=== PATIENT | male | born 1965 | race Native Hawaiian/Other Pacific Islander ===

== ENCOUNTER 2018-03-27 22:50 | Inpatient (IN) ==
[2018-03-27] MEDS ORDERED: IPRATROPIUM/ALBUTEROL 3 ML AMPUL.NEB NEB ONE (23:32)
[2018-03-27] MEDS ORDERED: methylPREDNISolone SOD SUCC 125 MG/2 ML VIAL IV ONE (23:32)
[2018-03-27] MEDS ORDERED: FUROSEMIDE 40 MG/4 ML VIAL IV ONE (23:32)
[2018-03-28] MEDS ORDERED: ALBUTEROL SULFATE 2.5 MG/3 ML NEBULIZER NEB ONE (00:25)
[2018-03-28 00:27] LABS: Basophils # (Auto) 0.1 K/mcL (0.0-0.3); Basophils % (Auto) 0.8 % (0.0-2.0); Eosinophils # (Auto) 0.1 K/mcL (0.0-0.7); Eosinophils % (Auto) 1.8 % (0.0-7.0); Granulocytes % (Auto) 60.9 % (38.0-78.0); Lymphocytes # (Auto) 1.8 K/mcL (1.5-4.8); Lymphocytes % (Auto) 27.5 % (15.5-49.0); Mean Corpuscular HGB Conc 33.5 g/dL (31.0-36.0); Mean Corpuscular Hemoglobin 31.8 pg (26.0-34.0); Monocytes # (Auto) 0.6 K/mcL (0.1-0.9); Platelet Count 170 K/mcL (140-440); RBC 5.48 M/mcL (4.50-5.90); Red Cell Distribution Width 15.7 % (11.5-14.5)
[2018-03-28 00:52] LABS: ALT/SGPT 22 U/l (0-40); Albumin 3.9 gm/dL (3.2-5.2); Albumin/Globulin Ratio 1.3 (1.0-2.3); Alkaline Phosphatase 107 U/L (39-117); Blood Urea Nitrogen 52 mg/dl (6-20)
[2018-03-28 01:06] LABS: proBNP > 70000.0 pg/ml (0-125)
--- NOTE | 2018-03-28 01:57 | Emergency Department Note ---
SOB HPI - General Chief Complaint: Shortness of Breath/Dyspnea Stated Complaint: Difficulty Breathing Time Seen by Provider: 03/27/18 23:18 Source: patient, family Mode of arrival: ambulatory Limitations: no limitations - History of Present Illness 52-year-old male visiting from [place] comes in complaining of shortness of breath since he got here 5 days ago. He has several chronic health conditions including congestive heart failure with an implanted defibrillator on diuretics , COPD from smoking long-term and chronic kidney disease. He cannot lay down to go to sleep and cannot seem to catch his breath. No fever or trouble the bowel movement. He does have some prostate trouble and is on medicine to help him urinate. No fever or nausea vomiting He incidentally notes that he is got a slow healing ulcer on his left cook which he has wrapped up - Related Data Home Medications Medication Instructions Recorded Confirmed Amiodarone HCl [Cordarone] 200 mg PO DAILY 03/27/18 03/27/18 Aspirin [Aspirin EC] 81 mg PO DAILY 03/27/18 03/27/18 Bumetanide [Bumex] 1 mg PO DAILY 03/27/18 03/27/18 Carvedilol [Coreg] 6.25 mg PO BIDCC 03/27/18 03/27/18 Colchicine [Colcrys] 0.6 mg PO DAILYP PRN 03/27/18 03/27/18 Febuxostat [Uloric] 40 mg PO DAILY 03/27/18 03/27/18 Fluticasone Hfa 220Mcg [Flovent 1 puff INH BID 03/27/18 03/27/18 Hfa 220Mcg] Lisinopril [Zestril] 5 mg PO DAILY 03/27/18 03/27/18 Simvastatin [Zocor] 10 mg PO HS 03/27/18 03/27/18 Spironolactone [Aldactone] 25 mg PO DAILY 03/27/18 03/27/18 Tamsulosin HCl [Flomax] 0.4 mg PO DAILY 03/27/18 03/27/18 Umeclidinium [place] [Incruse 62.5 mcg IH DAILY 03/27/18 03/27/18 Ellipta] Allergies Allergy/AdvReac Type Severity Reaction Status Date / Time No Known Drug Allergies Allergy Verified 03/27/18 22:56 Review of Systems All systems ED: reviewed and negative except as stated. Past Medical History - Past Medical History Attestation: Yes: The following information was validated with the patient. Medical history: Reports: CHF, COPD, hyperlipidemia, hypertension, renal disease , other (Gout) Surgical history ED: Reports: pacemaker/AICD - Social History smoking status: Former smoker Physical Exam Thin male in some acute distress secondary to difficulty breathing. He can speak in full sentences but has to catch a quick breath between. Normocephalic atraumatic. Acne scarring on face. Conjunctive are clear sclerae white and nonicteric. No nasal discharge or congestion. Oropharynx is pink and moist. Neck is supple without lymphadenopathy thyromegaly or carotid bruit. Heart is slightly bradycardic but otherwise regular rhythm. Lungs with tight wheezes throughout with scattered rhonchi. Significant work of breathing. Abdomen soft nontender nondistended. No peritoneal signs or guarding. No pedal edema. Exam of the wound on the left leg shows a approximate 7-8 cm length shallow ulceration with good granulation tissue. It does not look infected-no beefy red inflammation or purulent drainage. No foul smell to it. He is alert oriented able answer questions appropriately Limitations: no limitations Course Vital Signs Temperature 97.0 F 03/27/18 22:51 Pulse Rate 61 03/27/18 22:51 Respiratory Rate 26 H 03/27/18 22:51 Blood Pressure 136/91 03/27/18 22:51 Pulse Oximetry (%) 99 03/27/18 22:51 Temperature 97.0 F 03/27/18 22:51 Pulse Rate 58 L 03/28/18 02:01 Respiratory Rate 30 H 03/28/18 02:01 Blood Pressure 124/94 03/28/18 02:01 Pulse Oximetry (%) 96 03/28/18 02:01 Shortness of Breath/Dyspnea - Lab Data Lab results reviewed: Yes I reviewed the patient's lab results. Result diagrams: 03/27/18 23:45 03/27/18 23:45 Lab Results 03/27/18 03/27/18 03/27/18 Range/Units 23:45 23:45 23:45 WBC 6.5 (4.5-11.0) K/mcL RBC 5.48 (4.50-5.90) M/mcL Hgb 17.4 H (13.5-16.5) g/dL Hct 52.1 (41.0-55.0) % POC Hct 55.0 (41.0-55.0) % MCV 95.0 (80.0-100.0) fL MCH 31.8 (26.0-34.0) pg MCHC 33.5 (31.0-36.0) g/dL RDW 15.7 H (11.5-14.5) % Plt Count 170 (140-440) K/mcL MPV 9.5 (7.4-10.4) fL Gran % 60.9 (38.0-78.0) % Lymph % (Auto) 27.5 (15.5-49.0) % [place] % (Auto) 9.0 (1.0-12.0) % Eos % (Auto) 1.8 (0.0-7.0) % Baso % (Auto) 0.8 (0.0-2.0) % Gran # 3.9 (1.8-8.0) K/mcL Lymph # (Auto) 1.8 (1.5-4.8) K/mcL [place] # (Auto) 0.6 (0.1-0.9) K/mcL Eos # (Auto) 0.1 (0.0-0.7) K/mcL Baso # (Auto) 0.1 (0.0-0.3) K/mcL VBG Lactic Acid (0.5-2.2) mmol/L POC Sodium 140 (133-145) mmol/L Sodium 137 (133-145) mmol/L POC Potassium 4.1 (3.3-5.1) mmol/L Potassium 4.0 (3.3-5.1) mmol/L POC Chloride 105 (96-108) mmol/L Chloride 101 (96-108) mmol/L Carbon Dioxide 19 L (22-30) mmol/L POC Total CO2 20 L (22-30) mmol/L Anion Gap 17.0 H (8-16) POC BUN 50 H (6-20) mg/dl BUN 52 H (6-20) mg/dl Creatinine 3.0 H (0.7-1.2) mg/dl POC Creatinine 3.3 H (0.7-1.2) mg/dl GFR Calculation 23 Glucose 116 H (70-105) mg/dL POC Glucose 117 H (70-105) mg/dL Calcium 9.5 (8.6-10.4) mg/dl POC WB Ioniz Calcium 1.08 L (1.16-1.32) mmol/L Magnesium 1.7 (1.6-2.5) mg/dL Total Bilirubin 1.3 H (0.0-1.0) mg/dL AST 26 (0-37) U/l ALT 22 (0-40) U/l Alkaline Phosphatase 107 (39-117) U/L Troponin T 0.04 H* (0-0.03) ng/ml NT-Pro-B Natriuret Pep > 84030.0 H (0-125) pg/ml Total Protein 7.0 (5.9-8.4) gm/dL Albumin 3.9 (3.2-5.2) gm/dL Globulin 3.1 (2.2-3.7) gm/dL Albumin/Globulin Ratio 1.3 (1.0-2.3) 03/27/18 Range/Units 23:45 WBC (4.5-11.0) K/mcL RBC (4.50-5.90) M/mcL Hgb (13.5-16.5) g/dL Hct (41.0-55.0) % POC Hct (41.0-55.0) % MCV (80.0-100.0) fL MCH (26.0-34.0) pg MCHC (31.0-36.0) g/dL RDW (11.5-14.5) % Plt Count (140-440) K/mcL MPV (7.4-10.4) fL Gran % (38.0-78.0) % Lymph % (Auto) (15.5-49.0) % [place] % (Auto) (1.0-12.0) % Eos % (Auto) (0.0-7.0) % Baso % (Auto) (0.0-2.0) % Gran # (1.8-8.0) K/mcL Lymph # (Auto) (1.5-4.8) K/mcL [place] # (Auto) (0.1-0.9) K/mcL Eos # (Auto) (0.0-0.7) K/mcL Baso # (Auto) (0.0-0.3) K/mcL VBG Lactic Acid 1.9 (0.5-2.2) mmol/L POC Sodium (133-145) mmol/L Sodium (133-145) mmol/L POC Potassium (3.3-5.1) mmol/L Potassium (3.3-5.1) mmol/L POC Chloride (96-108) mmol/L Chloride (96-108) mmol/L Carbon Dioxide (22-30) mmol/L POC Total CO2 (22-30) mmol/L Anion Gap (8-16) POC BUN (6-20) mg/dl BUN (6-20) mg/dl Creatinine (0.7-1.2) mg/dl POC Creatinine (0.7-1.2) mg/dl GFR Calculation Glucose (70-105) mg/dL POC Glucose (70-105) mg/dL Calcium (8.6-10.4) mg/dl POC WB Ioniz Calcium (1.16-1.32) mmol/L Magnesium (1.6-2.5) mg/dL Total Bilirubin (0.0-1.0) mg/dL AST (0-37) U/l ALT (0-40) U/l Alkaline Phosphatase (39-117) U/L Troponin T (0-0.03) ng/ml NT-Pro-B Natriuret Pep (0-125) pg/ml Total Protein (5.9-8.4) gm/dL Albumin (3.2-5.2) gm/dL Globulin (2.2-3.7) gm/dL Albumin/Globulin Ratio (1.0-2.3) ABG shows a pH 7.38 PCO2 34 PO2 62 - Radiology Data Radiology results reviewed: Yes I reviewed the patient's radiology results. Chest x-ray shows pulmonary vascular congestion and cardiomegaly consistent with CHF. AICD noted - EKG Data EKG attestation: Yes I reviewed and interpreted this EKG. EKG results narrative: EKG shows rate of 59 sinus with T-wave inversion in lead III. Q-wave in 1 and aVL. Long PA is noted as well as IVCD Disposition Pt seen by SPLIT AND DRUM ROOM SUPERVISOR/PA only: No Clinical Impression: Acute exacerbation of chronic obstructive airways disease, Chronic renal disease, stage 4, severely decreased glomerular filtration rate (GFR) between 15 -29 mL/min/1.73 square meter, Wound healing, delayed Congestive heart failure Qualifiers: Heart failure type: systolic Heart failure chronicity: acute on chronic Qualified Code(s): I50.23 - Acute on chronic systolic (congestive) heart failure Summary: After initial exam and interview patient is worked up with chest x-ray EKG ABG and laboratory. Differential diagnosis includes COPD exacerbation versus CHF exacerbation versus worsening kidney status Treated with 40 of furosemide IV. He is also given DuoNeb treatment 1 and then albuterol treatment 1 nebulized. Also given Solu-Medrol After getting furosemide he was able to urinate some for us. DuoNeb helped but he still had difficulty breathing so he is given another dose of albuterol. IV Solu-Medrol was given for COPD exacerbation The wound site on his leg does appear to be healing without infection so this was re-bandaged Discussed case with Dr. Hopkins, hospitalist and Dr. Ogden, business initiatives manager. Dr. Ogden recommended giving more diuretics and so another dose of furosemide is given. Dr. Hopkins agreed to accept patient for further hospital care Disposition: Xfer As Inpt ([facility]) Condition: Serious
[2018-03-28] MEDS ORDERED: FUROSEMIDE 40 MG/4 ML VIAL IV ONE (02:33)
[2018-03-28 03:12] LABS: Appearance,Urine CLEAR; Bacteria,Urine 0 /hpf (0); Bilirubin,Urine NEG (NEG); Color,Urine YELLOW; Glucose,Urine (UA) NEGATIVE (NEG); Leukocyte Esterase,Urine NEG /uL (NEG); Mucus,Urine FEW /hpf (0); Protein,Urine 30 mg/dL (NEG); Specific Gravity,Urine 1.011 (1.000-1.035); Sperm,Urine PRESENT /hpf (ABSENT); Urine Blood NEG mg/dL (<0.03); Urine Hyaline Cast 29 /lpf (0-2); Urine RBC < 1 /hpf (0-1); Urine Squamous Epithelial Cell 0 /hpf (0-4); Urine WBC 0 /hpf (0-4); Urobilinogen,Urine NEG (NEG)
--- NOTE | 2018-03-28 05:34 | Internal Med History&Physical ---
Medical - H&P: [facility] Patient information: Note initiated : 03/28/18 at 5:29 am Service Date, if different from initiated Date: [] Patient: Ac Ponce a 52 y/o M admitted on for Difficulty Breathing. Chief Complaint: [] Chief complaint: progressive worsening dyspnea History of present illness: Mr. Ponce is a 52 year old M (visiting from [place]) with history of CHF, cardiomyopathy (non-ischemic?), status post AICD (placed 2015), hypertension hyperlipidemia, chronic renal failure, evaluated at ER for progressively worsening dyspnea since his arrival here on 03/21/18. 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 He double took the bumex dose on 03/24 to 03/26 (two 1mg pills daily), but that still did not improve his worsening symptoms of orthopnea and dyspnea on exertion. His symptoms are similar to 2 years ago, when he was hospitalized for acute CHF exacerbation. His chest x-ray and lab work are consistent with acute CHF exacerbation and renal failure. His estimated GFR (23) is very close to be on dialysis, and (when I saw him) his urine output is only ~300 mL after 40 mg IV Lasix 2. He is still dyspneic with exertion despite placed on O2 nasal cannula 2 Lpm. He will be admitted to ICU for further close monitoring, CPAP trial, increased Bumex dose. Dr. Ogden of nephrology service has been consulted for concern that his acute CHF exacerbation may not respond to IV diuresis. 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), s/p AICD placement (~5 years ago), hyperlipidemia, hypertension, Chronic renal failure, Gout, COPD Surgical history: s/p AICD Pertinent family history: Diabetes in family Smoking status: Current every day smoker Alcohol use: none (history of illegal drug use, ice) Medical - H&P: Meds Home Medications Medication Instructions Recorded Confirmed Type Amiodarone HCl [Cordarone] 200 mg PO DAILY 03/27/18 03/27/18 History Aspirin [Aspirin EC] 81 mg PO DAILY 03/27/18 03/27/18 History Bumetanide [Bumex] 1 mg PO DAILY 03/27/18 03/27/18 History Carvedilol [Coreg] 6.25 mg PO BIDCC 03/27/18 03/27/18 History Colchicine [Colcrys] 0.6 mg PO DAILYP PRN 03/27/18 03/27/18 History Febuxostat [Uloric] 40 mg PO DAILY 03/27/18 03/27/18 History Fluticasone Hfa 220Mcg [Flovent 1 puff INH BID 03/27/18 03/27/18 History Hfa 220Mcg] Lisinopril [Zestril] 5 mg PO DAILY 03/27/18 03/27/18 History Simvastatin [Zocor] 10 mg PO HS 03/27/18 03/27/18 History Spironolactone [Aldactone] 25 mg PO DAILY 03/27/18 03/27/18 History Tamsulosin HCl [Flomax] 0.4 mg PO DAILY 03/27/18 03/27/18 History Umeclidinium [place] [Incruse 62.5 mcg IH DAILY 03/27/18 03/27/18 History Ellipta] Allergies Allergy/AdvReac Type Severity Reaction Status Date / Time No Known Drug Allergies Allergy Verified 03/27/18 22:56 Medical - H&P: Exam - Constitutional Vitals: Temp Pulse Resp BP Pulse Ox 97.0 F 62 22 125/103 98 03/27/18 22:51 03/28/18 03:51 03/28/18 03:51 03/28/18 03:31 03/28/18 03:51 General appearance: moderate distress Exam: SOB on O2 nasal cannula - Head Head exam: Present: atraumatic, normocephalic - Eye Eye exam: Present: EOMI, PERRL Pupils: Present: normal accommodation - ENT ENT exam: Present: mucous membranes moist - Neck Neck exam: Present: full ROM. Absent: lymphadenopathy, thyromegaly - Respiratory Respiratory exam: Present: rales, respiratory distress Additional comments: Bibasilar, right worst in the left - Cardiovascular Cardiovascular exam: Present: +S1, +S2. Absent: clicks, gallop, rubs - GI/Abdominal GI/Abdominal exam: Present: soft. Absent: guarding, rebound, tenderness Additional comments: Obese abdomen, positive bowel sounds - Extremities Exam Extremities exam: Present: full ROM. Absent: calf tenderness, pedal edema, tenderness Additional comments: left lower leg with a ~ 7-8 cm shallow ulceration with good granulation tissue. no infected-no beefy red inflammation or purulent drainage - Neurological Exam Neurological exam: Present: alert, CN II-XII intact, oriented X3, reflexes normal - Skin Skin exam: Present: intact Medical - H&P: Reslt - Labs CBC & Chem 7: 03/29/18 04:21 03/29/18 04:21 Labs: Short CBC 03/27/18 Range/Units 23:45 WBC 6.5 (4.5-11.0) K/mcL Hgb 17.4 H (13.5-16.5) g/dL Hct 52.1 (41.0-55.0) % Plt Count 170 (140-440) K/mcL BMP 03/27/18 23:45 Sodium 137 Potassium 4.0 Chloride 101 Carbon Dioxide 19 L BUN 52 H Creatinine 3.0 H Glucose 116 H Calcium 9.5 Cardiac Enzymes 03/27/18 Range/Units 23:45 Troponin T 0.04 H* (0-0.03) ng/ml Liver Function 03/27/18 Range/Units 23:45 Total Bilirubin 1.3 H (0.0-1.0) mg/dL AST 26 (0-37) U/l ALT 22 (0-40) U/l Alkaline Phosphatase 107 (39-117) U/L Albumin 3.9 (3.2-5.2) gm/dL Urine 03/28/18 Range/Units 00:40 Urine Color Yellow Urine Appearance Clear Urine pH 6.0 (5.0-9.0) Ur Specific [place] 1.011 (1.000-1.035) Urine Protein 30 A (NEG) mg/dL Urine Glucose (UA) Negative (NEG) mg/dL - ABG Interpretation ABG results: 7.38/34/62/20/-4.1 BE/ 81% Additional comments: Hypoxemia, consistent with fluid overload/CHF - EKG Data -: EKG Reviewed by Myself Rate: bradycardia - EKG Data Prior EKG available for review: no EKG comments: slight bradycardic 03/28/18 07:12 - Imaging and Cardiology Chest x-ray Additional comments: IMPRESSION: 1. Cardiomegaly 2. Otherwise negative PA and lateral chest x-ray Interpreted and Authenticated by: Sameer Hall 03/28/18 Medical - H&P: A/P (1) Dyspnea due to congestive heart failure Current visit: Yes Status: Acute Resume diuretics, nephrology consult with Dr. Ogden due to his stage IV chronic renal failure. Concerned that he may need dialysis for fluid removal if diuretic fails. He is a smoker, and has history of mild degree of COPD on Flovent, but evaluations, exam and labs are consistent with fluid overload/CHF. ICU/PCU, close monitoring, CPAP as needed. 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 George Osorio, [facility], [facility] Current visit: Yes Status: Acute As above, diuretic with fluid restriction (3) Chronic renal failure, stage 4 (severe) Problem details: His consultant internship is Dr. Ybarra, at [facility], hold in [place] Current visit: Yes Status: Acute Nephrology consult with Dr. Ogden, close monitoring (4) Tobacco abuse Current visit: Yes Status: Acute Strongly advised him to quit smoking completely, resume his Flovent (or equivalents) and add bronchodilators.
[2018-03-28] MEDS ORDERED: ACETAMINOPHEN 325 MG TABLET PO PRN (05:54)
[2018-03-28] MEDS ORDERED: ONDANSETRON 4 MG/2 ML VIAL IV PRN (05:54)
--- NOTE | 2018-03-28 06:46 | XRay Report ---
INDICATION: Chest pain TECHNIQUE: PA and lateral upright chest x-ray COMPARISON: None FINDINGS: Left-sided unipolar transvenous pacemaker lead. Generalized cardiomegaly. Pulmonary vascularity is within normal limits. No pulmonary congestion. No pulmonary edema. No focal pulmonary parenchymal infiltrate or mass. No pleural fluid. IMPRESSION: 1. Cardiomegaly 2. Otherwise negative PA and lateral chest x-ray Interpreted and Authenticated by: Sameer Hall 03/28/18
[2018-03-28] MEDS: IPRATROPIUM/ALBUTEROL 3 ML AMPUL.NEB NEB SCH ×5 (07:27→22:50)
[2018-03-28] MEDS: BUDESONIDE 0.5 MG/2 ML AMPUL.NEB NEB SCH ×2 (07:27→20:15)
[2018-03-28] MEDS: DOCUSATE SODIUM 100 MG CAPSULE PO SCH ×2 (07:55→20:30)
[2018-03-28] MEDS: 0.9 % SODIUM CHLORIDE 10 ML SYRINGE IV SCH ×3 (07:55→22:00)
[2018-03-28] MEDS: PANTOPRAZOLE 40 MG TABLET PO SCH (07:56)
[2018-03-28] MEDS ORDERED: BUMETANIDE 1 MG TABLET PO SCH (09:00)
--- NOTE | 2018-03-28 09:32 | Nephrology Consult Note ---
History of Present Illness - Reason for Consult Patient information: Note initiated : 03/28/18 at 9:27 am Service Date, if different from initiated Date: [] Patient: Ac Ponce a 52 y/o M admitted on 03/28/18 for Difficulty Breathing. Chief Complaint: [] Consult date: 03/28/18 chronic renal failure Requesting physician: Sachin Luz - Chief Complaint SOB - History of Present Illness Patient is a 52 y/o pleasant male with PMH of CHF, CKD and other medical issues who is admitted with chief c/o SOB Patient is visiting his daughter here from [place]. He states have SOB for the last one week which is progressively getting worse and hence he came to the ER yesterday. Patient c/o orthopnea as well. He has no cough, no fever. No CP he denies LE edema he states his bumex dose was reduced either by his jewel diameter gauger or time checker because of decline in renal function, he self increased this for the last 2-3 days with some improvement in his symptoms he denies using NSAIDS, high sodium diet He has no nausea, vomiting no diarrhea he has been limiting his fluid intake given concerns of CHF He was evaluated in the ER and found to have s.creatinine of 3.0, egfr is 23ml/ min, mild acidosis, pro bnp of > 70,000 he was given 40mg furosemide x 2 doses with only 350cc of urine output and hence nephrology was consulted Review of Systems All systems PM: reviewed and no additional remarkable complaints except as stated (as in HPI) Past History Past medical history: h/o CHF from use of street drug ICE he is s/p defibrillator for the same 2-3 yrs ago he has h/o HTN, CKD stage IV, (he does not know his baseline renal function but was told his renal function is declining) he has chronic LE wound which is healing but still has open ulcer he has ? h/o COPD, patient denies but on bronchodilators Past surgical history: s/p defibrillator placement Past family history: father and mother had DM, denies renal issues in family Past social history: lives in [place], visiting his daughter here to help take care of her son h/o drug abuse (ICE) which he stopped since cardiac issues h/o smoking, smokes 1-2 cig per day, current drinks alcohol occasionally does not work Medications and Allergies Home Medications Medication Instructions Recorded Confirmed Type Amiodarone HCl [Cordarone] 200 mg PO DAILY 03/27/18 03/27/18 History Aspirin [Aspirin EC] 81 mg PO DAILY 03/27/18 03/27/18 History Bumetanide [Bumex] 1 mg PO DAILY 03/27/18 03/27/18 History Carvedilol [Coreg] 6.25 mg PO BIDCC 03/27/18 03/27/18 History Colchicine [Colcrys] 0.6 mg PO DAILYP PRN 03/27/18 03/27/18 History Febuxostat [Uloric] 40 mg PO DAILY 03/27/18 03/27/18 History Fluticasone Hfa 220Mcg [Flovent 1 puff INH BID 03/27/18 03/27/18 History Hfa 220Mcg] Lisinopril [Zestril] 5 mg PO DAILY 03/27/18 03/27/18 History Simvastatin [Zocor] 10 mg PO HS 03/27/18 03/27/18 History Spironolactone [Aldactone] 25 mg PO DAILY 03/27/18 03/27/18 History Tamsulosin HCl [Flomax] 0.4 mg PO DAILY 03/27/18 03/27/18 History Umeclidinium [place] [Incruse 62.5 mcg IH DAILY 03/27/18 03/27/18 History Ellipta] Allergies Allergy/AdvReac Type Severity Reaction Status Date / Time No Known Drug Allergies Allergy Verified 03/27/18 22:56 Exam - Vital Signs Vital signs: Temp Pulse Resp BP Pulse Ox 97.9 F 76 18 127/97 100 03/28/18 06:57 03/28/18 07:33 03/28/18 07:33 03/28/18 06:57 03/28/18 07:28 - General Appearance General appearance: appears started age EENT: mucous membranes moist Neck: no JVD Respiratory: rales (right LL) Cardiology: no rub, no edema, normal S1, normal S2 Gastrointestinal: no tenderness, no guarding Integumentary: warm and dry Neurologic: no asterixis, alert and oriented x3 Musculoskeletal: no erythema, no cyanosis Psychiatric: mood/affect appropriate Results - Lab Results 03/27/18 23:45 03/27/18 23:45 Most recent lab results Calcium 9.5 mg/dl (8.6-10.4) 03/27/18 23:45 Magnesium 1.7 mg/dL (1.6-2.5) 03/27/18 23:45 Assessment and Plan (1) Acute exacerbation of chronic obstructive airways disease Status: Acute (2) Congestive heart failure Status: Acute Qualifiers: Heart failure type: systolic Heart failure chronicity: acute on chronic Qualified Code(s): I50.23 - Acute on chronic systolic (congestive) heart failure (3) Chronic renal disease, stage 4, severely decreased glomerular filtration rate (GFR) between 15-29 mL/min/1.73 square meter S.Creatinine is 3.0, egfr is 23ml/min per CKD EPI equation unknown baseline, will obtain nephrology records tomorrow mild acidosis from CKD CHF with pro bnp > 70,000 and mild IE on CXR COPD exacerbation plan: no emergent need for STOCK DRIER TENDER/dialysis will start furosemide 80mg bid, will follow the response and increase the dose or add metolazone continue bronchodilators as likely component of COPD exacerbation as well will obtain echo and renal US and urinary studies will continue with lisinopril and spironolactone for now but if any concerns will hold fluid restriction to 1.5L renal diet dose meds to egfr/avoid nephrotoxic medications Will follow along Thank you for giving me an opportunity to participate in Mr Ponce's medical care, appreciate it Status: Acute
[2018-03-28 10:26] LABS: Creatinine,Urine Random 76.5 mg/dl
[2018-03-28] MEDS ORDERED: FUROSEMIDE 100 MG/10 ML VIAL IV ONE (10:30)
[2018-03-28] MEDS: AMIODARONE HCL 200 MG TABLET PO SCH (10:41)
[2018-03-28] MEDS: TAMSULOSIN 0.4 MG CAPSULE PO SCH (10:41)
[2018-03-28] MEDS: ASPIRIN 81 MG TAB.CHEW CHEWED SCH (10:41)
[2018-03-28] MEDS: CARVEDILOL 6.25 MG TABLET PO SCH ×2 (10:41→17:35)
--- NOTE | 2018-03-28 11:46 | Ultrasound Report ---
CLINICAL INFORMATION: Chronic kidney disease TECHNIQUE: Grayscale and color flow Doppler spectral imaging COMPARISON: None. FINDINGS: Right kidney measures 7.0 x 3.3 x 3.8 cm. There is a 2.1 cm right lower pole cyst. No solid mass. No hydronephrosis. Right kidney is mildly atrophic but otherwise negative. Normal sinus and cortical echotexture. Left kidney measures 9.6 x 6.3 x 5.4 cm. No solid or cystic mass. No hydronephrosis. No detectable calculi. Normal sinus cortical echotexture. Prevoid bladder volume measures 115 mL. Postvoid bladder volume measures 66 mL. Normal left ureteral jet. Right ureteral jet is not identified. No bladder calculus or detectable mass IMPRESSION: 1. Mildly atrophic right kidney. No hydronephrosis. 2. Post void residual as above Interpreted and Authenticated by: Sameer Hall 03/28/18
[2018-03-28 13:22] LABS: ALT/SGPT 22 U/l (0-40); Albumin 3.4 gm/dL (3.2-5.2); Alkaline Phosphatase 106 U/L (39-117); Bilirubin,Direct 0.4 mg/dL (0.0-0.3); Blood Urea Nitrogen 59 mg/dl (6-20); Gamma Glutamyl Transpeptidase 76 U/L (8-61); Uric Acid 9.3 mg/dL (2.5-8.0)
[2018-03-28] MEDS ORDERED: METOLAZONE 2.5 MG TABLET PO ONE (15:30)
[2018-03-28] MEDS: FUROSEMIDE 100 MG/10 ML VIAL IV SCH (16:06)
[2018-03-28] MEDS ORDERED: SIMVASTATIN 10 MG TABLET PO SCH (21:00)
[2018-03-29] MEDS: IPRATROPIUM/ALBUTEROL 3 ML AMPUL.NEB NEB SCH ×5 (03:39→19:35)
[2018-03-29] MEDS: 0.9 % SODIUM CHLORIDE 10 ML SYRINGE IV SCH ×4 (05:52→23:05)
[2018-03-29 06:40] LABS: Basophils # (Auto) 0 K/mcL (0.0-0.3); Basophils % (Auto) 0 % (0.0-2.0); Eosinophils # (Auto) 0 K/mcL (0.0-0.7); Eosinophils % (Auto) 0 % (0.0-7.0); Granulocytes % (Auto) 90.4 % (38.0-78.0); Lymphocytes # (Auto) 0.5 K/mcL (1.5-4.8); Lymphocytes % (Auto) 3.9 % (15.5-49.0); Mean Cell Volume 97.3 fL (80.0-100.0); Mean Corpuscular HGB Conc 32.9 g/dL (31.0-36.0); Monocytes # (Auto) 0.8 K/mcL (0.1-0.9); Monocytes % (Auto) 5.7 % (1.0-12.0); Platelet Count 149 K/mcL (140-440); RBC 5.11 M/mcL (4.50-5.90); Red Cell Distribution Width 16.2 % (11.5-14.5)
[2018-03-29 07:02] LABS: ALT/SGPT 22 U/l (0-40); Albumin 3.6 gm/dL (3.2-5.2); Albumin/Globulin Ratio 1.2 (1.0-2.3); Alkaline Phosphatase 99 U/L (39-117); Blood Urea Nitrogen 76 mg/dl (6-20)
[2018-03-29] MEDS: PANTOPRAZOLE 40 MG TABLET PO SCH (07:15)
[2018-03-29] MEDS: BUDESONIDE 0.5 MG/2 ML AMPUL.NEB NEB SCH ×2 (07:23→19:35)
--- NOTE | 2018-03-29 08:12 | Internal Med Progress Note ---
Medical - PN: Subj Patient information: Note initiated : 03/29/18 at 8:08 am Service Date, if different from initiated Date: [] Patient: Ac Ponce 52 y/o M admitted on 03/28/18 for Difficulty Breathing. Chief Complaint: [] - Constitutional Vitals: Vital Signs Temp Pulse Resp BP Pulse Ox 97.9 F 53 L 18 123/87 100 03/29/18 04:01 03/29/18 07:35 03/29/18 07:35 03/29/18 06:01 03/29/18 07:34 Period Temp Pulse Resp BP Sys/Altman Pulse Ox Last 24 Hr 97.1 F-98.8 F 53-68 10-28 107-140/71-99 95-100 Intake and Output 03/28/18 03/29/18 03/29/18 21:59 05:59 13:59 Intake Total 640 / 640 300 / 300 Output Total 1075 / 1075 800 / 800 600 / 600 Balance -435 / -435 -500 / -500 -600 / -600 Weight 200 lb 1.6 oz Intake & Output: Intake & Output 03/28/18 03/29/18 03/29/18 21:59 05:59 13:59 Intake Total 640 / 640 300 / 300 Output Total 1075 / 1075 800 / 800 600 / 600 Balance -435 / -435 -500 / -500 -600 / -600 Weight 200 lb 1.6 oz Intake: Oral 640 / 640 300 / 300 Output: Void Amount 1075 / 1075 800 / 800 600 / 600 # of times incontinent of urine 0 / 0 Other: Meal Dinner snack Percent of Meal Consumed 100% 100% Feeding Ability Independent # Voids 1 2 2 Medical - PN: Obj Da - Labs CBC & Chem 7: 03/29/18 04:21 03/29/18 04:21 Labs: Abnormal Lab Results 03/29/18 03/29/18 03/28/18 04:21 04:21 11:52 WBC 13.2 H Hgb RDW 16.2 H Gran % 90.4 H Lymph % (Auto) 3.9 L Gran # 12.0 H Lymph # (Auto) 0.5 L Carbon Dioxide 18 L 19 L POC Total CO2 Anion Gap 18.0 H 20.0 H POC BUN BUN 76 H 59 H Creatinine 3.4 H 3.5 H POC Creatinine Glucose 150 H 248 H POC Glucose Uric Acid 9.3 H POC WB Ioniz Calcium Total Bilirubin 1.1 H 1.2 H Direct Bilirubin 0.4 H GGT 76 H Lactate Dehydrogenase 252 H Troponin T NT-Pro-B Natriuret Pep Urine Protein Hyaline Casts Urine Sperm 03/28/18 03/27/18 03/27/18 00:40 23:45 23:45 WBC Hgb RDW Gran % Lymph % (Auto) Gran # Lymph # (Auto) Carbon Dioxide 19 L POC Total CO2 20 L Anion Gap 17.0 H POC BUN 50 H BUN 52 H Creatinine 3.0 H POC Creatinine 3.3 H Glucose 116 H POC Glucose 117 H Uric Acid POC WB Ioniz Calcium 1.08 L Total Bilirubin 1.3 H Direct Bilirubin GGT Lactate Dehydrogenase Troponin T 0.04 H* NT-Pro-B Natriuret Pep > 12401.0 H Urine Protein 30 A Hyaline Casts 29 H Urine Sperm Present A 03/27/18 23:45 WBC Hgb 17.4 H RDW 15.7 H Gran % Lymph % (Auto) Gran # Lymph # (Auto) Carbon Dioxide POC Total CO2 Anion Gap POC BUN BUN Creatinine POC Creatinine Glucose POC Glucose Uric Acid POC WB Ioniz Calcium Total Bilirubin Direct Bilirubin GGT Lactate Dehydrogenase Troponin T NT-Pro-B Natriuret Pep Urine Protein Hyaline Casts Urine Sperm Meds: Medications Acetaminophen (Tylenol) 650 mg PO Q4-6HP PRN PRN Reason: PAIN/FEVER > 101 Albuterol/Ipratropium (Duoneb) 3 ml NEB Q4HRT [facility] Last Admin: 03/29/18 07:23 Dose: 3 ml Amiodarone HCl (Cordarone) 200 mg PO DAILY [facility] Last Admin: 03/28/18 10:41 Dose: 200 mg Aspirin (Aspirin) 81 mg CHEWED DAILY [facility] Last Admin: 03/28/18 10:41 Dose: 81 mg Budesonide (Pulmicort) 0.5 mg NEB Q12 [facility] Last Admin: 03/29/18 07:23 Dose: 0.5 mg Carvedilol (Coreg) 6.25 mg PO BIDCC [facility] Last Admin: 03/28/18 17:35 Dose: 6.25 mg Docusate Sodium (Colace) 100 mg PO BID [facility] Last Admin: 03/28/18 20:30 Dose: 100 mg Furosemide (Lasix) 80 mg IV BIDD [facility] Last Admin: 03/28/18 16:06 Dose: 80 mg Ondansetron HCl (Zofran) 4 mg IV Q4-6HP PRN PRN Reason: Nausea And Vomiting Pantoprazole Sodium (Protonix) 40 mg PO QAMAC [facility] Last Admin: 03/29/18 07:15 Dose: 40 mg Simvastatin (Zocor) 10 mg PO HS [facility] Last Admin: 03/28/18 20:29 Dose: 10 mg Sodium Chloride (Saline Flush) 10 ml IV Q8 [facility] Last Admin: 03/29/18 05:52 Dose: 10 ml Tamsulosin HCl (Flomax) 0.4 mg PO DAILY [facility] Last Admin: 03/28/18 10:41 Dose: 0.4 mg Medical - PN: A/P - Time Spent With Patient Total time spent is greater than 50% in coordination of care (as documented) at patient's floor/unit and/or counseling patient: (1) Dyspnea due to congestive heart failure Status: Acute Current Visit: Yes (2) Congestive heart failure Problem details: His saddle tree stitcher is Dr. George Osorio, [facility] Status: Acute Assessment and plan: Echo 03/28/18: Tissue fraction 50% severely reduced at LVEF, moderate RV dilated, moderate LA & RA dilated, moderate pulmonary hypertension (50-70 mmHg), increased right atrial pressure with dilated IVC Current Visit: Yes (3) Chronic renal failure, stage 4 (severe) Problem details: His echo tech is Dr. Ybarra, at [facility], hold in [place] Status: Acute Current Visit: Yes (4) Tobacco abuse Status: Acute Current Visit: Yes Medical - PN: Qual - VTE Deep Vein Thrombosis/Pulmonary Embolism Present on Admission: No
[2018-03-29] MEDS: FUROSEMIDE 100 MG/10 ML VIAL IV SCH ×2 (09:11→16:25)
[2018-03-29] MEDS: AMIODARONE HCL 200 MG TABLET PO SCH (09:12)
[2018-03-29] MEDS: ASPIRIN 81 MG TAB.CHEW CHEWED SCH (09:12)
[2018-03-29] MEDS: DOCUSATE SODIUM 100 MG CAPSULE PO SCH ×2 (09:12→20:42)
[2018-03-29] MEDS: CARVEDILOL 6.25 MG TABLET PO SCH ×3 (09:12→18:22)
[2018-03-29] MEDS: TAMSULOSIN 0.4 MG CAPSULE PO SCH (09:12)
[2018-03-29] MEDS ORDERED: ACETAMINOPHEN 325 MG TABLET PO PRN (16:29)
[2018-03-29] MEDS ORDERED: ONDANSETRON 4 MG/2 ML VIAL IV PRN (16:29)
--- NOTE | 2018-03-29 17:12 | Nephrology Progress Note ---
Subjective Patient information: Note initiated : 03/29/18 at 5:07 pm Service Date, if different from initiated Date: [] Patient: Ac Ponce 52 y/o M admitted on 03/28/18 for Difficulty Breathing/ CHF. Chief Complaint: [] Principal diagnosis: CHF Interval history: Patient has no new symptoms he is feeling a little better, SOB improved denies GI symptoms no CP no dizziness BP stable decent response to diuresis Pertinent ROS: as above Objective - Vital Signs Vital signs: Vital Signs Temp Pulse Pulse Resp BP Pulse Ox 03/29/18 15:15 53 L 16 03/29/18 15:08 12 100 03/29/18 14:00 13 114/86 98 03/29/18 13:40 18 100 03/29/18 12:01 26 H 110/63 97 03/29/18 12:00 97.2 F 22 110/63 100 03/29/18 11:28 52 L 17 03/29/18 10:01 12 113/87 100 03/29/18 09:45 20 98 03/29/18 09:40 22 85 L 03/29/18 09:01 22 121/86 100 03/29/18 08:01 97.2 F 15 108/75 100 03/29/18 07:35 53 L 18 03/29/18 07:34 100 03/29/18 07:30 99 03/29/18 07:01 51 L 17 107/76 100 03/29/18 06:01 17 123/87 03/29/18 05:01 63 26 H 107/71 95 03/29/18 04:01 97.9 F 58 L 15 120/93 99 03/29/18 03:01 60 17 115/82 100 03/29/18 02:01 64 16 118/92 100 03/29/18 02:00 60 100 03/29/18 01:01 61 121/86 100 03/29/18 00:01 97.9 F 59 L 10 L 128/84 100 03/28/18 23:42 59 L 15 124/79 100 03/28/18 22:50 61 16 03/28/18 22:01 60 27 H 131/85 98 03/28/18 21:03 59 L 14 121/85 100 03/28/18 20:15 60 16 98 03/28/18 20:01 60 18 126/86 100 07/08/18 20:00 98.3 F 67 21 124/84 99 03/28/18 19:53 59 L 28 H 124/84 97 03/28/18 19:50 61 21 128/84 100 03/28/18 18:16 59 L 21 131/90 100 03/28/18 18:00 131/90 100 Intake and Output 03/29/18 03/29/18 03/29/18 05:59 13:59 21:59 Intake Total 300 / 300 480 / 480 Output Total 800 / 800 1900 / 1900 Balance -500 / -500 -1420 / -1420 Intake: Oral 300 / 300 480 / 480 Output: Void Amount 800 / 800 1900 / 1900 Other: Meal snack Lunch Percent of Meal Consumed 100% 100% Feeding Ability Independent # Voids 2 1 Weight 200 lb 1.6 oz Patient Weight 03/30/18 05:59 Weight 200 lb 1.6 oz Intake & Output: Intake & Output 03/29/18 03/29/18 03/29/18 05:59 13:59 21:59 Intake Total 300 / 300 480 / 480 Output Total 800 / 800 1900 / 1900 Balance -500 / -500 -1420 / -1420 Weight 200 lb 1.6 oz Intake: Oral 300 / 300 480 / 480 Output: Void Amount 800 / 800 1900 / 1900 Other: Meal snack Lunch Percent of Meal Consumed 100% 100% Feeding Ability Independent # Voids 2 1 - General Appearance General appearance: appears started age EENT: mucous membranes moist Neck: no JVD Respiratory: rales Cardiology: no rub, no edema, regular rate, regular rhythm Gastrointestinal: no tenderness, no guarding Integumentary: warm and dry Neurologic: alert and oriented x3 Musculoskeletal: no erythema, no cyanosis, no clubbing Psychiatric: mood/affect appropriate - Lab 03/29/18 04:21 03/29/18 04:21 Most recent lab results Calcium 9.6 mg/dl (8.6-10.4) 03/29/18 04:21 Phosphorus 4.3 mg/dL (2.7-4.5) 03/28/18 11:52 Magnesium 1.7 mg/dL (1.6-2.5) 03/28/18 11:52 Assessment and Plan (1) Acute exacerbation of chronic obstructive airways disease Status: Acute (2) Congestive heart failure Status: Acute Comment: His user acceptance tester is Dr. George Osorio, [facility] Qualifiers: Heart failure type: systolic Heart failure chronicity: acute on chronic Qualified Code(s): I50.23 - Acute on chronic systolic (congestive) heart failure (3) Chronic renal disease, stage 4, severely decreased glomerular filtration rate (GFR) between 15-29 mL/min/1.73 square meter s.creatinine is 3.4, egfr is 19ml/min per CKD EPI equation, BUN is 76 labs done by his chainstitch felled seam operator in 12/2017 BUN was 70, S.creatinine was 4.7 renal function is stable or better than in 01/06 he has no uremic symptoms no edema but pro bnp > [id number] was very high with mild IE on CXR given this will continue with IV furosemide 80mg bid will hold off on metolazone he has mild acidosis if trends down will add sodium bicarb no urgent indication for BUILDING EQUIPMENT INSPECTOR but patient knows he may need this is near future ensure low sodium/renal diet dose meds to egfr avoid nephrotoxic medications may resume lisinopril and spironolactone if BP stable as his EF Is only 15% and this was continued by cardiology and his chainstitch felled seam operator despite declining renal function Will follow along Status: Acute
--- NOTE | 2018-03-29 20:27 | General Surgery Consult Note ---
History of Present Illness Patient information: Note initiated : 03/29/18 at 8:20 pm Service Date, if different from initiated Date: [] Patient: Ac Ponce 52 y/o M admitted on 03/28/18 for Difficulty Breathing/ CHF. Chief Complaint: [] Consult date: 03/29/18 Requesting physician: Angie Hopkins (Wound care Left cook wound) History of present illness: I saw this patient along with Gretchen RN, In patient Wound care ans Ostomy nurse. This is a 52 year old male from [place] admitted via ER to ICU with acute respiratory issues, SOB and CHF. He has CKD. He smokes cigarettes and drinks alcohol. His medical issues are addressed by the hospitalist and stock holder. He gives h/o of traumatic avulsion injury over 2 weeks ago when he fell of a Kayak. There was no LOC, CP, Palpitation passing out before or following this event. Hi wound was being treated conservatively with local cleansing and covering with antibiotic ointment and gauze dressings. This is helping him and wound is improving. Medications and Allergies Home Medications Medication Instructions Recorded Confirmed Type Amiodarone HCl [Cordarone] 200 mg PO DAILY 03/27/18 03/27/18 History Aspirin [Aspirin EC] 81 mg PO DAILY 03/27/18 03/27/18 History Bumetanide [Bumex] 1 mg PO DAILY 03/27/18 03/27/18 History Carvedilol [Coreg] 6.25 mg PO BIDCC 03/27/18 03/27/18 History Colchicine [Colcrys] 0.6 mg PO DAILYP PRN 03/27/18 03/27/18 History Febuxostat [Uloric] 40 mg PO DAILY 03/27/18 03/27/18 History Fluticasone Hfa 220Mcg [Flovent 1 puff INH BID 03/27/18 03/27/18 History Hfa 220Mcg] Lisinopril [Zestril] 5 mg PO DAILY 03/27/18 03/27/18 History Simvastatin [Zocor] 10 mg PO HS 03/27/18 03/27/18 History Spironolactone [Aldactone] 25 mg PO DAILY 03/27/18 03/27/18 History Tamsulosin HCl [Flomax] 0.4 mg PO DAILY 03/27/18 03/27/18 History Umeclidinium [place] [Incruse 62.5 mcg IH DAILY 03/27/18 03/27/18 History Ellipta] Allergies Allergy/AdvReac Type Severity Reaction Status Date / Time No Known Drug Allergies Allergy Verified 03/27/18 22:56 Exam Temp Pulse Resp BP Pulse Ox 97.6 F 53 L 18 117/81 100 03/29/18 16:01 03/29/18 15:15 03/29/18 16:01 03/29/18 16:01 03/29/18 16:01 - General physical appearance well developed, well nourished, no distress, no pain - Eyes PERRL, normal ocular movement - ENT normal pinna, normal nares, normal mucosa, no congestion, other (Clear speech) - Head Head exam IM: Present: atraumatic, normal inspection, normocephalic - Neck no masses, no bruits, trachea midline, no venous distension - Cardiovascular Cardiovascular exam IM: Present: irregular rhythm - Respiratory dullness: bilateral (lower lobes) - Abdomen Abdomen: Present: soft, non tender, bowel sounds - Integumentary Present: other (Chronic granulating wound with thick biofimon surface and marginal callous. NO SIGNS of acute inflmmation., suppuration or drainage. NO odor. Approximate size 8 x 5 x 0.5 CM) - Neurologic Present: normal coordination, normal sensation - Musculoskeletal Present: other (Moves all extremities and There are no sgins of any bone or joint deformities. Did NOT see him OOB) - Psychiatric Present: oriented to time, oriented to person, oriented to place, speech is normal Results - Labs 03/31/18 05:50 03/31/18 05:50 Abnormal lab results 03/29/18 03/29/18 03/29/18 Range/Units 04:21 04:21 04:21 WBC 13.2 H (4.5-11.0) K/mcL RDW 16.2 H (11.5-14.5) % Gran % 90.4 H (38.0-78.0) % Lymph % (Auto) 3.9 L (15.5-49.0) % Gran # 12.0 H (1.8-8.0) K/mcL Lymph # (Auto) 0.5 L (1.5-4.8) K/mcL Carbon Dioxide 18 L (22-30) mmol/L Anion Gap 18.0 H (8-16) BUN 76 H (6-20) mg/dl Creatinine 3.4 H (0.7-1.2) mg/dl Glucose 150 H (70-105) mg/dL Total Bilirubin 1.1 H (0.0-1.0) mg/dL NT-Pro-B Natriuret Pep > 81703.0 H (0-125) pg/ml Diabetes panel 03/29/18 Range/Units 04:21 Sodium 138 (133-145) mmol/L Potassium 4.0 (3.3-5.1) mmol/L Chloride 102 (96-108) mmol/L Carbon Dioxide 18 L (22-30) mmol/L BUN 76 H (6-20) mg/dl Creatinine 3.4 H (0.7-1.2) mg/dl Glucose 150 H (70-105) mg/dL Calcium 9.6 (8.6-10.4) mg/dl AST 21 (0-37) U/l ALT 22 (0-40) U/l Alkaline Phosphatase 99 (39-117) U/L Total Protein 6.6 (5.9-8.4) gm/dL Albumin 3.6 (3.2-5.2) gm/dL Calcium panel 03/29/18 Range/Units 04:21 Calcium 9.6 (8.6-10.4) mg/dl Albumin 3.6 (3.2-5.2) gm/dL Pituitary panel 03/29/18 Range/Units 04:21 Sodium 138 (133-145) mmol/L Potassium 4.0 (3.3-5.1) mmol/L Chloride 102 (96-108) mmol/L Carbon Dioxide 18 L (22-30) mmol/L BUN 76 H (6-20) mg/dl Creatinine 3.4 H (0.7-1.2) mg/dl Glucose 150 H (70-105) mg/dL Calcium 9.6 (8.6-10.4) mg/dl Adrenal panel 03/29/18 Range/Units 04:21 Sodium 138 (133-145) mmol/L Potassium 4.0 (3.3-5.1) mmol/L Chloride 102 (96-108) mmol/L Carbon Dioxide 18 L (22-30) mmol/L BUN 76 H (6-20) mg/dl Creatinine 3.4 H (0.7-1.2) mg/dl Glucose 150 H (70-105) mg/dL Calcium 9.6 (8.6-10.4) mg/dl Total Bilirubin 1.1 H (0.0-1.0) mg/dL AST 21 (0-37) U/l ALT 22 (0-40) U/l Alkaline Phosphatase 99 (39-117) U/L Total Protein 6.6 (5.9-8.4) gm/dL Albumin 3.6 (3.2-5.2) gm/dL All other labs normal. Assessment and Plan (1) Traumatic ulcer of left lower leg, limited to breakdown of skin Assessment: Traumatic wound Left lower anterior leg. Improving. Plan: Local wound care. daily MIST treatments and topical antibiotic ointment with dressing changes. Will follow this patient during his hospitalization. Status: Acute Priority: Medium (2) Congestive heart failure Status: Acute Priority: High Comment: His offset plate maker is Dr. George Osorio, [facility] Qualifiers: Heart failure type: systolic Heart failure chronicity: acute on chronic Qualified Code(s): I50.23 - Acute on chronic systolic (congestive) heart failure (3) Chronic renal disease, stage 4, severely decreased glomerular filtration rate (GFR) between 15-29 mL/min/1.73 square meter Status: Acute Priority: High (4) Wound healing, delayed Status: Acute Priority: Medium (5) Tobacco abuse Status: Chronic Priority: Medium (6) Chronic renal failure, stage 4 (severe) Status: Acute Comment: His stock holder is Dr. Ybarra, at [facility] , hold in [place] (7) Dyspnea due to congestive heart failure Status: Acute Priority: High
[2018-03-29] MEDS: MUPIROCIN 2% TOPICAL SCH (20:42)
[2018-03-29] MEDS ORDERED: SIMVASTATIN 10 MG TABLET PO SCH (21:00)
[2018-03-29] MEDS ORDERED: MUPIROCIN 2% TOPICAL SCH (21:00)
[2018-03-30] MEDS: IPRATROPIUM/ALBUTEROL 3 ML AMPUL.NEB NEB SCH ×8 (01:33→23:47)
[2018-03-30] MEDS: 0.9 % SODIUM CHLORIDE 10 ML SYRINGE IV SCH ×3 (05:46→20:01)
[2018-03-30 06:01] LABS: Basophils # (Auto) 0 K/mcL (0.0-0.3); Basophils % (Auto) 0.1 % (0.0-2.0); Eosinophils # (Auto) 0 K/mcL (0.0-0.7); Eosinophils % (Auto) 0.2 % (0.0-7.0); Granulocytes % (Auto) 84.3 % (38.0-78.0); Lymphocytes # (Auto) 0.9 K/mcL (1.5-4.8); Mean Cell Volume 97.2 fL (80.0-100.0); Mean Corpuscular HGB Conc 32.9 g/dL (31.0-36.0); Monocytes # (Auto) 0.7 K/mcL (0.1-0.9); Monocytes % (Auto) 6.4 % (1.0-12.0); Platelet Count 163 K/mcL (140-440); RBC 5.46 M/mcL (4.50-5.90); Red Cell Distribution Width 16.3 % (11.5-14.5)
[2018-03-30] MEDS: BUDESONIDE 0.5 MG/2 ML AMPUL.NEB NEB SCH ×3 (07:15→19:43)
[2018-03-30] MEDS ORDERED: PANTOPRAZOLE 40 MG TABLET PO SCH (07:30)
[2018-03-30 07:40] LABS: ALT/SGPT 20 U/l (0-40); Albumin 3.9 gm/dL (3.2-5.2); Albumin/Globulin Ratio 1.3 (1.0-2.3); Alkaline Phosphatase 114 U/L (39-117); Bilirubin,Direct 0.3 mg/dL (0.0-0.3); Blood Urea Nitrogen 92 mg/dl (6-20); Gamma Glutamyl Transpeptidase 85 U/L (8-61); Uric Acid 13.3 mg/dL (2.5-8.0)
[2018-03-30] MEDS ORDERED: FUROSEMIDE 100 MG/10 ML VIAL IV SCH (08:00)
[2018-03-30] MEDS: CARVEDILOL 6.25 MG TABLET PO SCH ×2 (08:08→16:39)
[2018-03-30] MEDS: DOCUSATE SODIUM 100 MG CAPSULE PO SCH ×2 (08:09→20:01)
[2018-03-30] MEDS ORDERED: AMIODARONE HCL 200 MG TABLET PO SCH (09:00)
[2018-03-30] MEDS ORDERED: TAMSULOSIN 0.4 MG CAPSULE PO SCH (09:00)
[2018-03-30] MEDS ORDERED: ASPIRIN 81 MG TAB.CHEW CHEWED SCH (09:00)
[2018-03-30] MEDS ORDERED: POTASSIUM CHLORIDE 10 MEQ TABLET PO ONE (09:53)
[2018-03-30] MEDS: MUPIROCIN 2% TOPICAL SCH ×2 (11:13→21:45)
--- NOTE | 2018-03-30 15:05 | General Surgery Progress Note ---
Subjective Patient reports: no new complaints, other (On going wound care orders AND care reviewed with [facility]) Narrative: Note initiated : 03/30/18 at 3:02 pm Service Date, if different from initiated Date: [] Patient: Ac Ponce 52 y/o M admitted on 03/28/18 for Difficulty Breathing/ CHF. Chief Complaint: [] Objective Temp Pulse Resp BP Pulse Ox 97.2 F 51 L 18 113/78 100 03/30/18 12:01 03/30/18 11:26 03/30/18 12:01 03/30/18 12:01 03/30/18 12:01 AVSS. Reviewed general progress. On going wound care orders for local care and MIST treatment were reviewed. - Additional Data Intake & Output - Last 24 hours: Intake & Output 03/28/18 03/29/18 03/30/18 03/31/18 05:59 05:59 05:59 05:59 Intake Total 1360 / 1360 960 / 960 340 / 340 Output Total 350 / 350 2750 / 2750 5575 / 5575 2175 / 2175 Balance -350 / -350 -1390 / -1390 -4615 / -4615 -1835 / -1835 Weight 205 lb 200 lb 1.6 oz 195 lb 12.8 oz - Labs 03/30/18 03:50 03/30/18 06:37 Diabetes panel 03/30/18 03/30/18 Range/Units 03:50 06:37 Sodium TNP 135 Potassium TNP 3.5 Chloride TNP 94 L Carbon Dioxide TNP 25 BUN TNP 92 H Creatinine TNP 3.4 H Glucose TNP 100 Calcium TNP 9.7 AST TNP 17 ALT TNP 20 Alkaline Phosphatase TNP 114 Total Protein TNP 6.9 Albumin TNP 3.9 Triglycerides 142 (<150) mg/dl Calcium panel 03/30/18 03/30/18 Range/Units 03:50 06:37 Calcium TNP 9.7 Phosphorus 3.7 (2.7-4.5) mg/dL Albumin TNP 3.9 Pituitary panel 03/30/18 03/30/18 Range/Units 03:50 06:37 Sodium TNP 135 Potassium TNP 3.5 Chloride TNP 94 L Carbon Dioxide TNP 25 BUN TNP 92 H Creatinine TNP 3.4 H Glucose TNP 100 Calcium TNP 9.7 Adrenal panel 03/30/18 03/30/18 Range/Units 03:50 06:37 Sodium TNP 135 Potassium TNP 3.5 Chloride TNP 94 L Carbon Dioxide TNP 25 BUN TNP 92 H Creatinine TNP 3.4 H Glucose TNP 100 Calcium TNP 9.7 Total Bilirubin TNP 0.9 AST TNP 17 ALT TNP 20 Alkaline Phosphatase TNP 114 Total Protein TNP 6.9 Albumin TNP 3.9 Assessment and Plan (1) Traumatic ulcer of left lower leg, limited to breakdown of skin Status: Acute Current Visit: Yes (2) Congestive heart failure Problem details: His business sales consultant is Dr. George Osorio, [facility] Status: Acute Current Visit: Yes (3) Chronic renal disease, stage 4, severely decreased glomerular filtration rate (GFR) between 15-29 mL/min/1.73 square meter Status: Acute Current Visit: Yes (4) Wound healing, delayed Status: Acute Current Visit: Yes (5) Tobacco abuse Status: Chronic Current Visit: Yes (6) Chronic renal failure, stage 4 (severe) Problem details: His drop crew laborer is Dr. Ybarra, at [facility], hold in [place] Status: Acute Current Visit: Yes (7) Dyspnea due to congestive heart failure Status: Acute Current Visit: Yes - Time Spent With Patient Total time spent is greater than 50% in coordination of care (as documented) at patient's floor/unit and/or counseling patient: Assessment; Stable from wound care point of view. Plan: Continue current treatment. Following patient . less than 15 minutes
--- NOTE | 2018-03-30 17:14 | Nephrology Progress Note ---
Subjective Patient information: Note initiated : 03/30/18 at 5:11 pm Service Date, if different from initiated Date: [] Patient: Ac Ponce 52 y/o M admitted on 03/28/18 for Difficulty Breathing/ CHF. Chief Complaint: [] Principal diagnosis: CHF Interval history: no new issues good diuresis with improving symptoms denies sob, cp no edema does have episodes of low oxygen sat and apneic spells at night no other overnight events reported Pertinent ROS: as above Objective - Vital Signs Vital signs: Vital Signs Temp Pulse Resp BP Pulse Ox 03/30/18 15:47 97.0 F 59 L 18 109/71 100 03/30/18 15:19 51 L 16 03/30/18 12:01 97.2 F 18 113/78 100 03/30/18 11:26 51 L 16 03/30/18 10:12 100 03/30/18 08:01 97.6 F 110/83 100 03/30/18 08:00 98 03/30/18 07:26 52 L 16 03/30/18 07:25 100 03/30/18 04:00 97.9 F 20 110/78 100 03/30/18 00:00 97.4 F 20 113/86 03/29/18 20:00 97.4 F 23 H 114/92 99 03/29/18 19:35 52 L 16 100 Intake and Output 03/30/18 03/30/18 03/30/18 05:59 13:59 21:59 Intake Total 360 / 360 340 / 340 Output Total 1700 / 1700 1375 / 1375 1050 / 1050 Balance -1340 / -1340 -1035 / -1035 -1050 / -1050 Intake: Oral 360 / 360 340 / 340 Output: Void Amount 1700 / 1700 1375 / 1375 1050 / 1050 Other: Meal jello Breakfast Lunch Percent of Meal Consumed 100% 100% 100% Feeding Ability Independent Independent # Voids 1 Intake & Output: Intake & Output 03/30/18 03/30/18 03/30/18 05:59 13:59 21:59 Intake Total 360 / 360 340 / 340 Output Total 1700 / 1700 1375 / 1375 1050 / 1050 Balance -1340 / -1340 -1035 / -1035 -1050 / -1050 Intake: Oral 360 / 360 340 / 340 Output: Void Amount 1700 / 1700 1375 / 1375 1050 / 1050 Other: Meal jello Breakfast Lunch Percent of Meal Consumed 100% 100% 100% Feeding Ability Independent Independent # Voids 1 - General Appearance General appearance: appears started age EENT: mucous membranes moist Neck: no JVD Respiratory: no scoliosis, clear Cardiology: no rub, no edema, regular rate, regular rhythm Gastrointestinal: no tenderness, no guarding Integumentary: warm and dry Neurologic: alert and oriented x3 Musculoskeletal: no erythema, no cyanosis Psychiatric: mood/affect appropriate - Lab 03/30/18 03:50 03/30/18 06:37 Most recent lab results Calcium 9.7 mg/dl (8.6-10.4) 03/30/18 06:37 Phosphorus 3.7 mg/dL (2.7-4.5) 03/30/18 06:37 Magnesium 1.9 mg/dL (1.6-2.5) 03/30/18 06:37 Assessment and Plan (1) Acute exacerbation of chronic obstructive airways disease Status: Acute (2) Congestive heart failure Status: Acute Priority: High Comment: His special technical operations officer is Dr. George Osorio, [facility] Qualifiers: Heart failure type: systolic Heart failure chronicity: acute on chronic Qualified Code(s): I50.23 - Acute on chronic systolic (congestive) heart failure (3) Chronic renal disease, stage 4, severely decreased glomerular filtration rate (GFR) between 15-29 mL/min/1.73 square meter s.creatinine is 3.4, egfr is 19ml/min per CKD EPI equation, stable at that, BUN is 92 given rise in BUN and significant net negative balance will hold IV diuretics, already received am dose, hold pm dose will resume home dose of bumex at 2mg pod aily from tomorrow K is borderline will given 10meq K supplement if renal function remains stable will resume ACEI tomorrow if Bp permits and eventually also spironolactone ensure fluid restriction, low sodium diet avoid NSAIDS/NEPHROTOXIC MEDICATIONS Will follow along Status: Acute Priority: High
[2018-03-30] MEDS ORDERED: ONDANSETRON 4 MG/2 ML VIAL IV PRN (19:27)
[2018-03-30] MEDS ORDERED: ACETAMINOPHEN 325 MG TABLET PO PRN (19:27)
[2018-03-30] MEDS: SIMVASTATIN 10 MG TABLET PO SCH (20:00)
--- NOTE | 2018-03-30 23:31 | Internal Med Progress Note ---
Medical - PN: Subj Patient information: Note initiated : 03/30/18 at 11:31 pm Service Date, if different from initiated Date: [] Patient: Ac Ponce 52 y/o M admitted on 03/28/18 for Difficulty Breathing/ CHF. Chief Complaint: [] - Constitutional Vitals: Vital Signs Temp Pulse Resp BP Pulse Ox 97.8 F 53 L 12 113/73 96 03/30/18 22:55 03/30/18 22:55 03/30/18 22:55 03/30/18 22:55 03/30/18 22:55 Period Temp Pulse Resp BP Sys/Altman Pulse Ox Last 24 Hr 97.0 F-98.0 F 51-59 12-20 105-116/71-86 96-100 Intake and Output 03/30/18 03/30/18 03/31/18 13:59 21:59 05:59 Intake Total 340 / 340 360 / 360 Output Total 1375 / 1375 1325 / 1325 Balance -1035 / -1035 -965 / -965 Weight 189 lb 8 oz Patient Weight 03/31/18 05:59 Weight 189 lb 8 oz Intake & Output: Intake & Output 03/30/18 03/30/18 03/31/18 13:59 21:59 05:59 Intake Total 340 / 340 360 / 360 Output Total 1375 / 1375 1325 / 1325 Balance -1035 / -1035 -965 / -965 Weight 189 lb 8 oz Intake: Oral 340 / 340 360 / 360 Output: Void Amount 1375 / 1375 1325 / 1325 Other: Meal Breakfast Dinner Hartman Percent of Meal Consumed 100% Hartman-t 100% Feeding Ability Independent Independent Independent Stool Size Moderate Stool Color Adria Colored Stool Consistency Soft Loose # Voids 1 1 # Bowel Movements 1 Medical - PN: Obj Da - Labs CBC & Chem 7: 03/30/18 03:50 03/30/18 06:37 Labs: Abnormal Lab Results 03/30/18 03/30/18 03/29/18 06:37 03:50 04:21 WBC Hgb 17.5 H RDW 16.3 H Gran % 84.3 H Lymph % (Auto) 9.0 L Gran # 8.6 H Lymph # (Auto) 0.9 L Chloride 94 L Carbon Dioxide POC Total CO2 Anion Gap POC BUN BUN 92 H Creatinine 3.4 H POC Creatinine Glucose POC Glucose Uric Acid 13.3 H POC WB Ioniz Calcium Total Bilirubin Direct Bilirubin GGT 85 H Lactate Dehydrogenase Troponin T NT-Pro-B Natriuret Pep > 46351.0 H Urine Protein Hyaline Casts Urine Sperm 03/29/18 03/29/18 03/28/18 04:21 04:21 11:52 WBC 13.2 H Hgb RDW 16.2 H Gran % 90.4 H Lymph % (Auto) 3.9 L Gran # 12.0 H Lymph # (Auto) 0.5 L Chloride Carbon Dioxide 18 L 19 L POC Total CO2 Anion Gap 18.0 H 20.0 H POC BUN BUN 76 H 59 H Creatinine 3.4 H 3.5 H POC Creatinine Glucose 150 H 248 H POC Glucose Uric Acid 9.3 H POC WB Ioniz Calcium Total Bilirubin 1.1 H 1.2 H Direct Bilirubin 0.4 H GGT 76 H Lactate Dehydrogenase 252 H Troponin T NT-Pro-B Natriuret Pep Urine Protein Hyaline Casts Urine Sperm 03/28/18 03/27/18 03/27/18 00:40 23:45 23:45 WBC Hgb RDW Gran % Lymph % (Auto) Gran # Lymph # (Auto) Chloride Carbon Dioxide 19 L POC Total CO2 20 L Anion Gap 17.0 H POC BUN 50 H BUN 52 H Creatinine 3.0 H POC Creatinine 3.3 H Glucose 116 H POC Glucose 117 H Uric Acid POC WB Ioniz Calcium 1.08 L Total Bilirubin 1.3 H Direct Bilirubin GGT Lactate Dehydrogenase Troponin T 0.04 H* NT-Pro-B Natriuret Pep > 55824.0 H Urine Protein 30 A Hyaline Casts 29 H Urine Sperm Present A 03/27/18 23:45 WBC Hgb 17.4 H RDW 15.7 H Gran % Lymph % (Auto) Gran # Lymph # (Auto) Chloride Carbon Dioxide POC Total CO2 Anion Gap POC BUN BUN Creatinine POC Creatinine Glucose POC Glucose Uric Acid POC WB Ioniz Calcium Total Bilirubin Direct Bilirubin GGT Lactate Dehydrogenase Troponin T NT-Pro-B Natriuret Pep Urine Protein Hyaline Casts Urine Sperm Meds: Medications Acetaminophen (Tylenol) 650 mg PO Q4-6HP PRN PRN Reason: PAIN/FEVER > 101 Albuterol/Ipratropium (Duoneb) 3 ml NEB Q4HRT [facility] Last Admin: 03/30/18 23:30 Dose: Not Given Amiodarone HCl (Cordarone) 200 mg PO QAMCC [facility] Aspirin (Aspirin) 81 mg CHEWED DAILY [facility] Budesonide (Pulmicort) 0.5 mg NEB Q12 [facility] Last Admin: 03/30/18 19:43 Dose: Not Given Bumetanide (Bumex) 2 mg PO DAILY [facility] Carvedilol (Coreg) 6.25 mg PO BIDCC [facility] Docusate Sodium (Colace) 100 mg PO BID [facility] Last Admin: 03/30/18 20:01 Dose: Not Given Mupirocin (Bactroban Crm 2%) 1 gm TOPICAL BID [facility] Last Admin: 03/30/18 21:45 Dose: 1 gm Ondansetron HCl (Zofran) 4 mg IV Q4-6HP PRN PRN Reason: Nausea And Vomiting Pantoprazole Sodium (Protonix) 40 mg PO QAMAC [facility] Simvastatin (Zocor) 10 mg PO HS [facility] Last Admin: 03/30/18 20:00 Dose: 10 mg Sodium Chloride (Saline Flush) 10 ml IV Q8 [facility] Last Admin: 03/30/18 20:01 Dose: 10 ml Tamsulosin HCl (Flomax) 0.4 mg PO DAILY [facility] Medical - PN: A/P - Time Spent With Patient Total time spent is greater than 50% in coordination of care (as documented) at patient's floor/unit and/or counseling patient: (1) Dyspnea due to congestive heart failure Status: Acute Current Visit: Yes (2) Congestive heart failure Problem details: His pump and blower operator is Dr. George Osorio, [facility] Status: Acute Assessment and plan: Echo 03/28/18: Tissue fraction 50% severely reduced at LVEF, moderate RV dilated, moderate LA & RA dilated, moderate pulmonary hypertension (50-70 mmHg), increased right atrial pressure with dilated IVC Current Visit: Yes (3) Chronic renal failure, stage 4 (severe) Problem details: His flume worker is Dr. Ybarra, at [facility], hold in [place] Status: Acute Current Visit: Yes (4) Tobacco abuse Status: Chronic Current Visit: Yes Medical - PN: Qual - VTE Deep Vein Thrombosis/Pulmonary Embolism Present on Admission: No
[2018-03-31] MEDS: IPRATROPIUM/ALBUTEROL 3 ML AMPUL.NEB NEB SCH ×5 (03:08→19:15)
[2018-03-31] MEDS: 0.9 % SODIUM CHLORIDE 10 ML SYRINGE IV SCH ×2 (05:07→13:44)
[2018-03-31] MEDS: BUDESONIDE 0.5 MG/2 ML AMPUL.NEB NEB SCH ×3 (06:46→19:15)
[2018-03-31 07:12] LABS: Basophils # (Auto) 0 K/mcL (0.0-0.3); Basophils % (Auto) 0.4 % (0.0-2.0); Eosinophils # (Auto) 0.1 K/mcL (0.0-0.7); Eosinophils % (Auto) 1.1 % (0.0-7.0); Granulocytes % (Auto) 68.3 % (38.0-78.0); Lymphocytes # (Auto) 1.7 K/mcL (1.5-4.8); Lymphocytes % (Auto) 17.8 % (15.5-49.0); Mean Cell Volume 96.4 fL (80.0-100.0); Mean Corpuscular HGB Conc 32.9 g/dL (31.0-36.0); Mean Corpuscular Hemoglobin 31.7 pg (26.0-34.0); Monocytes # (Auto) 1.2 K/mcL (0.1-0.9); Monocytes % (Auto) 12.4 % (1.0-12.0); Platelet Count 164 K/mcL (140-440); RBC 5.86 M/mcL (4.50-5.90); Red Cell Distribution Width 16.2 % (11.5-14.5)
[2018-03-31 07:24] LABS: ALT/SGPT 20 U/l (0-40); Albumin 3.7 gm/dL (3.2-5.2); Albumin/Globulin Ratio 1.2 (1.0-2.3); Alkaline Phosphatase 131 U/L (39-117); Blood Urea Nitrogen 98 mg/dl (6-20)
[2018-03-31] MEDS: PANTOPRAZOLE 40 MG TABLET PO SCH (07:37)
[2018-03-31] MEDS: AMIODARONE HCL 200 MG TABLET PO SCH (07:58)
[2018-03-31] MEDS: CARVEDILOL 6.25 MG TABLET PO SCH ×2 (08:12→17:23)
[2018-03-31] MEDS ORDERED: SPIRONOLACTONE 25 MG TABLET PO SCH (09:00)
[2018-03-31] MEDS ORDERED: BUMETANIDE 1 MG TABLET PO SCH (09:00)
[2018-03-31] MEDS ORDERED: LISINOPRIL 5 MG TABLET PO SCH (09:00)
[2018-03-31] MEDS: DOCUSATE SODIUM 100 MG CAPSULE PO SCH ×2 (09:24→20:54)
[2018-03-31] MEDS: TAMSULOSIN 0.4 MG CAPSULE PO SCH (09:25)
[2018-03-31] MEDS: BUMETANIDE 1 MG TABLET PO SCH (09:25)
[2018-03-31] MEDS: ASPIRIN 81 MG TAB.CHEW CHEWED SCH (09:28)
[2018-03-31] MEDS: MUPIROCIN 2% TOPICAL SCH ×2 (12:47→21:18)
--- NOTE | 2018-03-31 20:49 | Internal Med Progress Note ---
Medical - PN: Subj Patient information: Note initiated : 03/31/18 at 8:48 pm Service Date, if different from initiated Date: [] Patient: Ac Ponce 52 y/o M admitted on 03/28/18 for Difficulty Breathing/ CHF. Chief Complaint: [] - Constitutional Vitals: Vital Signs Temp Pulse Resp BP Pulse Ox 98.1 F 62 20 117/84 95 03/31/18 15:39 03/31/18 19:58 03/31/18 19:58 03/31/18 19:58 03/31/18 19:58 Period Temp Pulse Resp BP Sys/Altman Pulse Ox Last 24 Hr 97.4 F-98.3 F 53-62 12-20 104-117/66-84 94-97 Intake and Output 03/31/18 03/31/18 03/31/18 05:59 13:59 21:59 Intake Total 90 / 90 565 / 565 Output Total 725 / 725 675 / 675 525 / 525 Balance -635 / -635 -110 / -110 -525 / -525 Intake & Output: Intake & Output 03/31/18 03/31/18 03/31/18 05:59 13:59 21:59 Intake Total 90 / 90 565 / 565 Output Total 725 / 725 675 / 675 525 / 525 Balance -635 / -635 -110 / -110 -525 / -525 Intake: Oral 90 / 90 565 / 565 Output: Void Amount 725 / 725 675 / 675 525 / 525 Other: Meal sandwhich & jello Lunch Percent of Meal Consumed 100% 100% Feeding Ability Independent Independent # Voids 1 1 Medical - PN: Obj Da - Labs CBC & Chem 7: 03/31/18 05:50 03/31/18 05:50 Labs: Abnormal Lab Results 03/31/18 03/31/18 03/30/18 05:50 05:50 06:37 WBC Hgb 18.6 H Hct 56.5 H RDW 16.2 H Gran % Lymph % (Auto) Cotton % (Auto) 12.4 H Gran # Lymph # (Auto) Cotton # (Auto) 1.2 H Sodium 130 L Chloride 91 L 94 L Carbon Dioxide 21 L Anion Gap 18.0 H BUN 98 H 92 H Creatinine 3.5 H 3.4 H Glucose 107 H Uric Acid 13.3 H Total Bilirubin GGT 85 H Alkaline Phosphatase 131 H NT-Pro-B Natriuret Pep 03/30/18 03/29/18 03/29/18 03:50 04:21 04:21 WBC Hgb 17.5 H Hct RDW 16.3 H Gran % 84.3 H Lymph % (Auto) 9.0 L Cotton % (Auto) Gran # 8.6 H Lymph # (Auto) 0.9 L Cotton # (Auto) Sodium Chloride Carbon Dioxide 18 L Anion Gap 18.0 H BUN 76 H Creatinine 3.4 H Glucose 150 H Uric Acid Total Bilirubin 1.1 H GGT Alkaline Phosphatase NT-Pro-B Natriuret Pep > 32946.0 H 03/29/18 04:21 WBC 13.2 H Hgb Hct RDW 16.2 H Gran % 90.4 H Lymph % (Auto) 3.9 L Cotton % (Auto) Gran # 12.0 H Lymph # (Auto) 0.5 L Cotton # (Auto) Sodium Chloride Carbon Dioxide Anion Gap BUN Creatinine Glucose Uric Acid Total Bilirubin GGT Alkaline Phosphatase NT-Pro-B Natriuret Pep Meds: Medications Acetaminophen (Tylenol) 650 mg PO Q4-6HP PRN PRN Reason: PAIN/FEVER > 101 Albuterol/Ipratropium (Duoneb) 3 ml NEB Q6HRT [facility] Last Admin: 03/31/18 19:15 Dose: 3 ml [facility]) [facility] Last Admin: 03/31/18 07:58 Dose: 200 mg Aspirin (Aspirin) 81 mg CHEWED DAILY [facility] Last Admin: 03/31/18 09:28 Dose: 81 mg Budesonide (Pulmicort) 0.5 mg NEB Q12 [facility] Last Admin: 03/31/18 19:15 Dose: 0.5 mg Bumetanide (Bumex) 2 mg PO DAILY [facility] Last Admin: 03/31/18 09:25 Dose: 2 mg [facility] Last Admin: 03/31/18 17:23 Dose: 6.25 mg Docusate Sodium (Colace) 100 mg PO BID [facility] Last Admin: 03/31/18 09:24 Dose: 100 mg Mupirocin (Bactroban Crm 2%) 1 gm TOPICAL BID [facility] Last Admin: 03/31/18 12:47 Dose: 1 gm Ondansetron HCl (Zofran) 4 mg IV Q4-6HP PRN PRN Reason: Nausea And Vomiting Pantoprazole Sodium (Protonix) 40 mg PO QAMAC [facility] Last Admin: 03/31/18 07:37 Dose: 40 mg Simvastatin (Zocor) 10 mg PO HS [facility] Last Admin: 03/30/18 20:00 Dose: 10 mg Sodium Chloride (Saline Flush) 10 ml IV Q8 [facility] Last Admin: 03/31/18 13:44 Dose: 10 ml Tamsulosin HCl (Flomax) 0.4 mg PO DAILY [facility] Last Admin: 03/31/18 09:25 Dose: 0.4 mg Medical - PN: A/P - Time Spent With Patient Total time spent is greater than 50% in coordination of care (as documented) at patient's floor/unit and/or counseling patient: (1) Dyspnea due to congestive heart failure Status: Acute Current Visit: Yes (2) Congestive heart failure Problem details: His blanchard grinder operator is Dr. George Osorio, [facility] Status: Acute Assessment and plan: Echo 03/28/18: Tissue fraction 50% severely reduced at LVEF, moderate RV dilated, moderate LA & RA dilated, moderate pulmonary hypertension (50-70 mmHg), increased right atrial pressure with dilated IVC Current Visit: Yes (3) Chronic renal failure, stage 4 (severe) Problem details: His kennel hand is Dr. Ybarra, at [facility], hold in [place] Status: Acute Current Visit: Yes (4) Tobacco abuse Status: Chronic Current Visit: Yes Medical - PN: Qual - VTE Deep Vein Thrombosis/Pulmonary Embolism Present on Admission: No
[2018-03-31] MEDS: SIMVASTATIN 10 MG TABLET PO SCH (20:54)
[2018-04-01] MEDS: 0.9 % SODIUM CHLORIDE 10 ML SYRINGE IV SCH ×4 (00:01→13:30)
[2018-04-01] MEDS: IPRATROPIUM/ALBUTEROL 3 ML AMPUL.NEB NEB SCH ×4 (03:40→19:44)
[2018-04-01 06:55] LABS: Basophils # (Auto) 0 K/mcL (0.0-0.3); Basophils % (Auto) 0.3 % (0.0-2.0); Eosinophils # (Auto) 0.2 K/mcL (0.0-0.7); Eosinophils % (Auto) 2.1 % (0.0-7.0); Granulocytes % (Auto) 67.9 % (38.0-78.0); Lymphocytes # (Auto) 1.8 K/mcL (1.5-4.8); Lymphocytes % (Auto) 17.6 % (15.5-49.0); Mean Cell Volume 95.9 fL (80.0-100.0); Mean Corpuscular Hemoglobin 31.7 pg (26.0-34.0); Monocytes # (Auto) 1.2 K/mcL (0.1-0.9); Monocytes % (Auto) 12.1 % (1.0-12.0); Platelet Count 161 K/mcL (140-440); RBC 6.41 M/mcL (4.50-5.90); Red Cell Distribution Width 15.7 % (11.5-14.5)
[2018-04-01 06:56] LABS: ALT/SGPT 23 U/l (0-40); Albumin 3.9 gm/dL (3.2-5.2); Albumin/Globulin Ratio 1.1 (1.0-2.3); Alkaline Phosphatase 178 U/L (39-117); Blood Urea Nitrogen 103 mg/dl (6-20)
[2018-04-01] MEDS: PANTOPRAZOLE 40 MG TABLET PO SCH (07:44)
[2018-04-01] MEDS: DOCUSATE SODIUM 100 MG CAPSULE PO SCH ×2 (07:45→21:00)
[2018-04-01] MEDS: ASPIRIN 81 MG TAB.CHEW CHEWED SCH (07:46)
[2018-04-01] MEDS: TAMSULOSIN 0.4 MG CAPSULE PO SCH (07:46)
[2018-04-01] MEDS: CARVEDILOL 6.25 MG TABLET PO SCH ×2 (07:47→17:29)
[2018-04-01] MEDS: AMIODARONE HCL 200 MG TABLET PO SCH (07:47)
[2018-04-01] MEDS: BUMETANIDE 1 MG TABLET PO SCH ×2 (07:48→14:33)
[2018-04-01] MEDS: MUPIROCIN 2% TOPICAL SCH ×2 (07:51→21:00)
[2018-04-01] MEDS: BUDESONIDE 0.5 MG/2 ML AMPUL.NEB NEB SCH ×2 (08:13→19:44)
[2018-04-01] MEDS: DEXTROSE 5%-1/2NS 1,000 ML IV SCH (10:13)
--- NOTE | 2018-04-01 13:51 | Nephrology Progress Note ---
Subjective Patient information: Note initiated : 04/01/18 at 1:49 pm Service Date, if different from initiated Date: [] Patient: Ac Ponce 52 y/o M admitted on 03/28/18 for Difficulty Breathing/ CHF. Chief Complaint: [] Principal diagnosis: CHF Interval history: patient has no new complaints his hemoglobin continues to trend up though, today at 20 BUN is more than 100 no SOB, CP NO EDEMA did not drink more fluids yesterday as requested Pertinent ROS: as above Objective - Vital Signs Vital signs: Vital Signs Temp Pulse Pulse Pulse Pulse Resp BP 04/01/18 13:40 70 16 04/01/18 12:00 96.8 F L 66 19 115/72 04/01/18 08:00 97.8 F 65 18 119/72 04/01/18 03:55 98.2 F 63 20 117/84 04/01/18 00:00 96.2 F L 62 20 117/82 03/31/18 19:58 62 20 117/84 03/31/18 19:16 62 18 03/31/18 15:39 98.1 F 62 18 112/80 Pulse Ox 04/01/18 13:40 04/01/18 12:00 04/01/18 08:00 99 04/01/18 03:55 96 04/01/18 00:00 98 03/31/18 19:58 95 03/31/18 19:16 03/31/18 15:39 Intake and Output 03/31/18 04/01/18 04/01/18 21:59 05:59 13:59 Intake Total 180 / 180 400 / 400 900 / 900 Output Total 900 / 900 300 / 300 785 / 785 Balance -720 / -720 100 / 100 115 / 115 Intake: Oral 180 / 180 400 / 400 900 / 900 Output: Void Amount 900 / 900 300 / 300 785 / 785 Other: Meal Breakfast Percent of Meal Consumed 90% Feeding Ability Independent # Voids 1 # Bowel Movements 1 Weight 187 lb 8 oz Intake & Output: Intake & Output 03/31/18 04/01/18 04/01/18 21:59 05:59 13:59 Intake Total 180 / 180 400 / 400 900 / 900 Output Total 900 / 900 300 / 300 785 / 785 Balance -720 / -720 100 / 100 115 / 115 Weight 187 lb 8 oz Intake: Oral 180 / 180 400 / 400 900 / 900 Output: Void Amount 900 / 900 300 / 300 785 / 785 Other: Meal Breakfast Percent of Meal Consumed 90% Feeding Ability Independent # Voids 1 # Bowel Movements 1 - General Appearance General appearance: appears started age EENT: mucous membranes moist Neck: no JVD Respiratory: clear Cardiology: no rub, no edema, regular rate, regular rhythm Gastrointestinal: no tenderness, no guarding Integumentary: warm and dry Neurologic: alert and oriented x3 Musculoskeletal: no erythema Psychiatric: mood/affect appropriate - Lab 04/01/18 04:10 04/01/18 04:10 Most recent lab results Calcium 9.6 mg/dl (8.6-10.4) 04/01/18 04:10 Phosphorus 3.7 mg/dL (2.7-4.5) 03/30/18 06:37 Magnesium 1.9 mg/dL (1.6-2.5) 03/30/18 06:37 Assessment and Plan (1) Acute exacerbation of chronic obstructive airways disease Status: Acute (2) Congestive heart failure Status: Acute Priority: High Comment: His breeder service technician is Dr. George Osorio, [facility] Qualifiers: Heart failure type: systolic Heart failure chronicity: acute on chronic Qualified Code(s): I50.23 - Acute on chronic systolic (congestive) heart failure (3) Chronic renal disease, stage 4, severely decreased glomerular filtration rate (GFR) between 15-29 mL/min/1.73 square meter s.creatinine is 3.5, egfr is 19ml/min per CKD EPI equation, stable at that, but BUN is trending upmore than 100 also concern of Hb and Hct rise, has polycythemia likely from COPD and sleep apnea but Hb too high which is a concern will cut back on bumex to 1mg no fluid restriction gentle IV hydration will monitor Hb and hct and bmp and ensure stable not stable for discharge yet renal diet dose meds to egfr avoid nephrotoxic meds Polycythemia CHF copd Status: Acute Priority: High
[2018-04-01 15:47] LABS: Blood Urea Nitrogen 104 mg/dl (6-20)
--- NOTE | 2018-04-01 17:14 | General Surgery Progress Note ---
Subjective Patient reports: no new complaints, other (Patient out of ICU to Med-Surg floor. Left leg wound examined with Ynes RUBIO, Sandra Nurse) Narrative: Note initiated : 04/01/18 at 5:11 pm Service Date, if different from initiated Date: [] Patient: Ac Ponce 52 y/o M admitted on 03/28/18 for Difficulty Breathing/ CHF. Chief Complaint: [] Objective Temp Pulse Resp BP Pulse Ox 97.3 F 66 19 117/58 99 04/01/18 15:22 04/01/18 15:22 04/01/18 15:22 04/01/18 15:22 04/01/18 08:00 AVSS. No acute changes NIR. Local Exam: Left lower medial leg wound site has improved significantly. Granulating well and contracted over 70 %. Periwound skin ans sub cutaneous tissues at base line now. NO edema of extremity. - Additional Data Intake & Output - Last 24 hours: Intake & Output 03/30/18 03/31/18 04/01/18 04/02/18 05:59 05:59 05:59 05:59 Intake Total 960 / 960 790 / 790 1145 / 1145 1740 / 1740 Output Total 5575 / 5575 3675 / 3675 1875 / 1875 1460 / 1460 Balance -4615 / -4615 -2885 / -2885 -730 / -730 280 / 280 Weight 195 lb 12.8 oz 189 lb 8 oz 187 lb 8 oz - Labs 04/01/18 14:52 04/01/18 14:52 Diabetes panel 04/01/18 04/01/18 Range/Units 04:10 14:52 Sodium 130 L 132 L (133-145) mmol/L Potassium 4.4 4.0 (3.3-5.1) mmol/L Chloride 90 L 87 L (96-108) mmol/L Carbon Dioxide 20 L 29 (22-30) mmol/L BUN 103 H* 104 H* (6-20) mg/dl Creatinine 3.5 H 3.5 H (0.7-1.2) mg/dl Glucose 104 82 (70-105) mg/dL Calcium 9.6 9.5 (8.6-10.4) mg/dl AST 24 (0-37) U/l ALT 23 (0-40) U/l Alkaline Phosphatase 178 H (39-117) U/L Total Protein 7.6 (5.9-8.4) gm/dL Albumin 3.9 (3.2-5.2) gm/dL Calcium panel 04/01/18 04/01/18 Range/Units 04:10 14:52 Calcium 9.6 9.5 (8.6-10.4) mg/dl Albumin 3.9 (3.2-5.2) gm/dL Pituitary panel 04/01/18 04/01/18 Range/Units 04:10 14:52 Sodium 130 L 132 L (133-145) mmol/L Potassium 4.4 4.0 (3.3-5.1) mmol/L Chloride 90 L 87 L (96-108) mmol/L Carbon Dioxide 20 L 29 (22-30) mmol/L BUN 103 H* 104 H* (6-20) mg/dl Creatinine 3.5 H 3.5 H (0.7-1.2) mg/dl Glucose 104 82 (70-105) mg/dL Calcium 9.6 9.5 (8.6-10.4) mg/dl Adrenal panel 04/01/18 04/01/18 Range/Units 04:10 14:52 Sodium 130 L 132 L (133-145) mmol/L Potassium 4.4 4.0 (3.3-5.1) mmol/L Chloride 90 L 87 L (96-108) mmol/L Carbon Dioxide 20 L 29 (22-30) mmol/L BUN 103 H* 104 H* (6-20) mg/dl Creatinine 3.5 H 3.5 H (0.7-1.2) mg/dl Glucose 104 82 (70-105) mg/dL Calcium 9.6 9.5 (8.6-10.4) mg/dl Total Bilirubin 1.1 H (0.0-1.0) mg/dL AST 24 (0-37) U/l ALT 23 (0-40) U/l Alkaline Phosphatase 178 H (39-117) U/L Total Protein 7.6 (5.9-8.4) gm/dL Albumin 3.9 (3.2-5.2) gm/dL Assessment and Plan (1) Traumatic ulcer of left lower leg, limited to breakdown of skin Status: Acute Assessment and plan: Assessment: Satisfactory progress. Plan: Selective debridement at bedside and tissue swab for cultures. If discharged, [facility]. Current Visit: Yes (2) Congestive heart failure Problem details: His ophthalmic medical technologist is Dr. George Osorio, [facility] Status: Acute Current Visit: Yes (3) Chronic renal disease, stage 4, severely decreased glomerular filtration rate (GFR) between 15-29 mL/min/1.73 square meter Status: Acute Current Visit: Yes (4) Wound healing, delayed Status: Acute Current Visit: Yes (5) Tobacco abuse Status: Chronic Current Visit: Yes (6) Chronic renal failure, stage 4 (severe) Problem details: His education technician is Dr. Ybarra, at [facility], [facility] in [place] Status: Acute Current Visit: Yes (7) Dyspnea due to congestive heart failure Status: Acute Current Visit: Yes - Time Spent With Patient Total time spent is greater than 50% in coordination of care (as documented) at patient's floor/unit and/or counseling patient:
--- NOTE | 2018-04-01 17:29 | General Surgery Procedure Note ---
Date of procedure: Note initiated : 04/01/18 at 5:24 pm Service Date, if different from initiated Date: [] Pre-op diagnosis: Post traumatic wound Left lower leg. Post-op diagnosis: same Procedure: Selective debridement at bedside and tissue sample for c/s. Findings: Granulating and guevara wound. Reduced by over 70 % Anesthesia: local Surgeon: Usama Santiago Estimated blood loss: 2 Pathology: other Description of procedure: This is a 52-year-old male. He has been in the intensive care unit for treatment of acute renal issues. He was also noted to have a post traumatic wound of the left lower medial leg. This was treated with MIST treatments and local wound care. Currently, he has recovered and is improving from his renal problems and is transferred out of ICU to [facility] floor. After obtaining informed consent and with adequate nursing help, the left leg area was widely seen and prepped and draped. We used a #3 curet and tangentially debrided this wound from the periphery toward the midportion. All the biofilm was excised. Deep tissue wounds was obtained for Gram stain and cultures. Hemostasis was achieved with pressure and elevation. Absorbent dressings applied. Blood loss less than 2 mL. Count of INSTRUMENTS and needles was reported to be correct. Procedure well-tolerated. Condition: stable Disposition: floor
--- NOTE | 2018-04-01 18:47 | Internal Med Progress Note ---
Medical - PN: Subj Patient information: Note initiated : 04/01/18 at 6:46 pm Service Date, if different from initiated Date: [] Patient: Ac Ponce 52 y/o M admitted on 03/28/18 for Difficulty Breathing/ CHF. Chief Complaint: [] - Constitutional Vitals: Vital Signs Temp Pulse Resp BP Pulse Ox 97.3 F 66 19 117/58 99 04/01/18 15:22 04/01/18 15:22 04/01/18 15:22 04/01/18 15:22 04/01/18 08:00 Period Temp Pulse Resp BP Sys/Altman Pulse Ox Last 24 Hr 96.2 F-98.2 F 62-70 16-20 115-119/58-84 95-99 Intake and Output 04/01/18 04/01/18 04/01/18 05:59 13:59 21:59 Intake Total 400 / 400 1140 / 1140 960 / 960 Output Total 300 / 300 785 / 785 1125 / 1125 Balance 100 / 100 355 / 355 -165 / -165 Intake & Output: Intake & Output 04/01/18 04/01/18 04/01/18 05:59 13:59 21:59 Intake Total 400 / 400 1140 / 1140 960 / 960 Output Total 300 / 300 785 / 785 1125 / 1125 Balance 100 / 100 355 / 355 -165 / -165 Intake: Oral 400 / 400 1140 / 1140 960 / 960 Output: Void Amount 300 / 300 785 / 785 1125 / 1125 Other: Meal Lunch Dinner Percent of Meal Consumed 100% 100% Feeding Ability Independent Independent Medical - PN: Obj Da - Labs CBC & Chem 7: 04/01/18 14:52 04/01/18 14:52 Labs: Abnormal Lab Results 04/01/18 04/01/18 04/01/18 14:52 14:52 04:10 RBC Hgb 20.3 H* Hct 60.6 H RDW Gran % Lymph % (Auto) Liberty % (Auto) Gran # Lymph # (Auto) [place] # (Auto) Sodium 132 L 130 L Chloride 87 L 90 L Carbon Dioxide 20 L Anion Gap 20.0 H BUN 104 H* 103 H* Creatinine 3.5 H 3.5 H Glucose Uric Acid Total Bilirubin 1.1 H GGT Alkaline Phosphatase 178 H 07/12/18 07/11/18 07/11/18 04:10 05:50 05:50 RBC 6.41 H Hgb 20.3 H* 18.6 H Hct 61.5 H 56.5 H RDW 15.7 H 16.2 H Gran % Lymph % (Auto) Liberty % (Auto) 12.1 H 12.4 H Gran # Lymph # (Auto) Liberty # (Auto) 1.2 H 1.2 H Sodium 130 L Chloride 91 L Carbon Dioxide 21 L Anion Gap 18.0 H BUN 98 H Creatinine 3.5 H Glucose 107 H Uric Acid Total Bilirubin GGT Alkaline Phosphatase 131 H 03/30/18 03/30/18 06:37 03:50 RBC Hgb 17.5 H Hct RDW 16.3 H Gran % 84.3 H Lymph % (Auto) 9.0 L Liberty % (Auto) Gran # 8.6 H Lymph # (Auto) 0.9 L [place] # (Auto) Sodium Chloride 94 L Carbon Dioxide Anion Gap BUN 92 H Creatinine 3.4 H Glucose Uric Acid 13.3 H Total Bilirubin GGT 85 H Alkaline Phosphatase Meds: Medications Acetaminophen (Tylenol) 650 mg PO Q4-6HP PRN PRN Reason: PAIN/FEVER > 101 Albuterol/Ipratropium (Duoneb) 3 ml NEB Q6HRT [facility] Last Admin: 04/01/18 13:38 Dose: 3 ml Amiodarone HCl (Cordarone) 200 mg PO [facility] Last Admin: 04/01/18 07:47 Dose: 200 mg Aspirin (Aspirin) 81 mg CHEWED DAILY [facility] Last Admin: 04/01/18 07:46 Dose: 81 mg Budesonide (Pulmicort) 0.5 mg NEB Q12 [facility] Last Admin: 04/01/18 08:13 Dose: Not Given Bumetanide (Bumex) 1 mg PO DAILY [facility] Last Admin: 04/01/18 14:33 Dose: Not Given [facility] Last Admin: 04/01/18 17:29 Dose: 6.25 mg Docusate Sodium (Colace) 100 mg PO BID [facility] Last Admin: 04/01/18 07:45 Dose: 100 mg Dextrose/Sodium Chloride (Dextrose 5%-1/2ns Iv Solution) 1,000 mls @ 84 mls/hr IV .[id number] [facility] Stop: 04/01/18 21:54 Last Admin: 04/01/18 10:13 Dose: 84 mls/hr Mupirocin (Bactroban Crm 2%) 1 gm TOPICAL BID [facility] Last Admin: 04/01/18 07:51 Dose: 1 gm Ondansetron HCl (Zofran) 4 mg IV Q4-6HP PRN PRN Reason: Nausea And Vomiting Pantoprazole Sodium (Protonix) 40 mg PO QAMAC [facility] Last Admin: 04/01/18 07:44 Dose: 40 mg Simvastatin (Zocor) 10 mg PO HS [facility] Last Admin: 03/31/18 20:54 Dose: 10 mg Sodium Chloride (Saline Flush) 10 ml IV Q8 [facility] Last Admin: 04/01/18 13:30 Dose: Not Given Tamsulosin HCl (Flomax) 0.4 mg PO DAILY [facility] Last Admin: 04/01/18 07:46 Dose: 0.4 mg Medical - PN: A/P - Time Spent With Patient Total time spent is greater than 50% in coordination of care (as documented) at patient's floor/unit and/or counseling patient: (1) Dyspnea due to congestive heart failure Status: Acute Current Visit: Yes (2) Congestive heart failure Problem details: His assistant women's tennis coach is Dr. George sOorio, [facility] Status: Acute Assessment and plan: Echo 03/28/18: Tissue fraction 50% severely reduced at LVEF, moderate RV dilated, moderate LA & RA dilated, moderate pulmonary hypertension (50-70 mmHg), increased right atrial pressure with dilated IVC Current Visit: Yes (3) Chronic renal failure, stage 4 (severe) Problem details: His sludge control operator is Dr. Ybarra, at [facility], hold in [place] Status: Acute Current Visit: Yes (4) Tobacco abuse Status: Chronic Current Visit: Yes Medical - PN: Qual - VTE Deep Vein Thrombosis/Pulmonary Embolism Present on Admission: No
[2018-04-01] MEDS: SIMVASTATIN 10 MG TABLET PO SCH (21:00)
[2018-04-02] MEDS: DEXTROSE 5%-1/2NS 1,000 ML IV SCH (01:21)
[2018-04-02] MEDS: IPRATROPIUM/ALBUTEROL 3 ML AMPUL.NEB NEB SCH ×4 (01:21→19:15)
[2018-04-02] MEDS: 0.9 % SODIUM CHLORIDE 10 ML SYRINGE IV SCH ×4 (03:22→21:20)
[2018-04-02 06:19] LABS: Basophils # (Auto) 0 K/mcL (0.0-0.3); Basophils % (Auto) 0.4 % (0.0-2.0); Eosinophils # (Auto) 0.3 K/mcL (0.0-0.7); Eosinophils % (Auto) 2.7 % (0.0-7.0); Granulocytes % (Auto) 68.5 % (38.0-78.0); Lymphocytes # (Auto) 1.7 K/mcL (1.5-4.8); Lymphocytes % (Auto) 17.3 % (15.5-49.0); Mean Cell Volume 96.9 fL (80.0-100.0); Mean Corpuscular HGB Conc 32.5 g/dL (31.0-36.0); Mean Corpuscular Hemoglobin 31.5 pg (26.0-34.0); Monocytes # (Auto) 1.1 K/mcL (0.1-0.9); Monocytes % (Auto) 11.1 % (1.0-12.0); Platelet Count 151 K/mcL (140-440); RBC 6.29 M/mcL (4.50-5.90); Red Cell Distribution Width 16.4 % (11.5-14.5)
[2018-04-02 06:44] LABS: ALT/SGPT 18 U/l (0-40); Albumin 3.5 gm/dL (3.2-5.2); Alkaline Phosphatase 164 U/L (39-117); Blood Urea Nitrogen 99 mg/dl (6-20)
[2018-04-02] MEDS: DOCUSATE SODIUM 100 MG CAPSULE PO SCH ×2 (07:35→21:20)
[2018-04-02] MEDS: BUMETANIDE 1 MG TABLET PO SCH (07:35)
[2018-04-02] MEDS: ASPIRIN 81 MG TAB.CHEW CHEWED SCH (07:36)
[2018-04-02] MEDS: PANTOPRAZOLE 40 MG TABLET PO SCH (07:36)
[2018-04-02] MEDS: TAMSULOSIN 0.4 MG CAPSULE PO SCH (07:36)
[2018-04-02] MEDS: CARVEDILOL 6.25 MG TABLET PO SCH ×2 (07:37→17:09)
[2018-04-02] MEDS: AMIODARONE HCL 200 MG TABLET PO SCH (07:37)
[2018-04-02] MEDS: BUDESONIDE 0.5 MG/2 ML AMPUL.NEB NEB SCH ×2 (08:17→19:15)
--- NOTE | 2018-04-02 10:31 | Nephrology Progress Note ---
Subjective Patient information: Note initiated : 04/02/18 at 10:27 am Service Date, if different from initiated Date: [] Patient: Ac Ponce 52 y/o M admitted on 03/28/18 for Difficulty Breathing/ CHF. Chief Complaint: [SOB] Principal diagnosis: CHF Interval history: Patient with no new issues denies headaches, blurry vision no SOB, CP no edema eager to go home Pertinent ROS: as above Objective - Vital Signs Vital signs: Vital Signs Temp Pulse Pulse Resp BP BP Pulse Ox 04/02/18 07:17 96.1 F L 68 19 115/72 04/02/18 04:00 97.6 F 60 20 118/78 95 04/01/18 23:51 57 L 12 126/86 97 04/01/18 19:45 56 L 16 96 04/01/18 19:44 55 L 16 04/01/18 18:54 96.2 F L 55 L 20 120/82 96 04/01/18 15:22 97.3 F 66 19 117/58 04/01/18 13:40 70 16 04/01/18 12:00 96.8 F L 66 19 115/72 Intake and Output 04/01/18 04/02/18 04/02/18 21:59 05:59 13:59 Intake Total 1080 / 1080 1920 / 1920 360 / 360 Output Total 1525 / 1525 1050 / 1050 460 / 460 Balance -445 / -445 870 / 870 -100 / -100 Intake: IV 1000 / 1000 Dextrose 5%-1/2Ns IV Solution 1 1000 / 1000 ,000 ml @ 84 mls/hr IV .[id number] [facility] Rx#:[id number] Oral 1080 / 1080 920 / 920 360 / 360 Output: Void Amount 1525 / 1525 1050 / 1050 460 / 460 Other: Meal Dinner Breakfast Percent of Meal Consumed 100% 100% Feeding Ability Independent Independent Independent Stool Color Yellow Weight 186 lb 8 oz Intake & Output: Intake & Output 04/01/18 04/02/18 04/02/18 21:59 05:59 13:59 Intake Total 1080 / 1080 1920 / 1920 360 / 360 Output Total 1525 / 1525 1050 / 1050 460 / 460 Balance -445 / -445 870 / 870 -100 / -100 Weight 186 lb 8 oz Intake: IV 1000 / 1000 Dextrose 5%-1/2Ns IV Solution 1 1000 / 1000 ,000 ml @ 84 mls/hr IV .[id number] [facility] Rx#:[id number] Oral 1080 / 1080 920 / 920 360 / 360 Output: Void Amount 1525 / 1525 1050 / 1050 460 / 460 Other: Meal Dinner Breakfast Percent of Meal Consumed 100% 100% Feeding Ability Independent Independent Independent Stool Color Yellow - General Appearance General appearance: appears started age EENT: mucous membranes moist Neck: no JVD Respiratory: no scoliosis, clear Cardiology: no rub, no edema, regular rate, regular rhythm Gastrointestinal: no tenderness, no guarding Integumentary: warm and dry Neurologic: no focal deficit, alert and oriented x3 Musculoskeletal: no erythema, no cyanosis Psychiatric: mood/affect appropriate - Lab 04/02/18 04:05 04/02/18 04:05 Most recent lab results Calcium 8.8 mg/dl (8.6-10.4) 04/02/18 04:05 Phosphorus 3.7 mg/dL (2.7-4.5) 03/30/18 06:37 Magnesium 1.9 mg/dL (1.6-2.5) 03/30/18 06:37 Assessment and Plan (1) Acute exacerbation of chronic obstructive airways disease Status: Acute (2) Congestive heart failure Status: Acute Priority: High Comment: His automotive leasing sales representative is Dr. George Osorio, [facility] Qualifiers: Heart failure type: systolic Heart failure chronicity: acute on chronic Qualified Code(s): I50.23 - Acute on chronic systolic (congestive) heart failure (3) Chronic renal disease, stage 4, severely decreased glomerular filtration rate (GFR) between 15-29 mL/min/1.73 square meter s.creatinine is 3.3, egfr is 21ml/min, renal function is stable BUN is down to 99 today he has no s/o fluid excess on exam given this will continue with bumex 1mg po daily, I have requested patient to monitor his weight at home and to take an extra 1mg bumex if he has 3 lbs weight gain he will continue with other medications fluid restriction to 1.5-2L will start low dose sodium bicarb for acidosis he is mildly hyponatremic and I anticipate this to improve, and I will also recheck his labs and see him in clinic in 4-5 days post discharge to ensure stable renal related labs he does have polycythemia and I have requested Dr Hopkins to touch base with hematology for further management on this, will defer management to hospitalist I will follow him in clinic in 4-5 days with repeat labs Thank you for giving me an opportunity to participate in Mr Cason medical care, appreciate it Status: Acute Priority: High
[2018-04-02] MEDS: MUPIROCIN 2% TOPICAL SCH ×2 (12:30→21:29)
[2018-04-02] MEDS: [UNRECOGNIZED DRUG - OTHER] IV SCH ×2 (14:06→17:09)
[2018-04-02] MEDS: DEXTROSE 5% IV SCH ×2 (14:06→17:09)
[2018-04-02] MEDS: HYDROXYUREA 500 MG CAPSULE PO SCH ×2 (14:06→22:05)
[2018-04-02] MEDS: SIMVASTATIN 10 MG TABLET PO SCH (21:20)
[2018-04-02] MEDS ORDERED: HYDROXYUREA 500 MG CAPSULE PO ONE (21:38)
[2018-04-03] MEDS: IPRATROPIUM/ALBUTEROL 3 ML AMPUL.NEB NEB SCH ×4 (01:08→13:04)
[2018-04-03] MEDS: BUDESONIDE 0.5 MG/2 ML AMPUL.NEB NEB SCH (07:29)
[2018-04-03] MEDS: PANTOPRAZOLE 40 MG TABLET PO SCH (07:50)
[2018-04-03] MEDS: 0.9 % SODIUM CHLORIDE 10 ML SYRINGE IV SCH (07:51)
--- NOTE | 2018-04-03 08:33 | General Surgery Progress Note ---
Subjective Patient reports: other (Progressing well from wound care point of view. ) Narrative: Note initiated : 04/03/18 at 8:31 am Service Date, if different from initiated Date: [] Patient: Ac Ponce 52 y/o M admitted on 03/28/18 for Difficulty Breathing/ CHF. Chief Complaint: [] Objective Temp Pulse Resp BP Pulse Ox 97.8 F 54 L 16 120/82 99 04/03/18 07:54 04/03/18 07:54 04/03/18 07:54 04/03/18 07:54 04/03/18 07:54 VSS . No new developments. Overall improving. Reviewed all progress notes and wound care with Pacheco RN on Med Surg floor. Spoke with Dr. Hopkins ( Hospitalist ) at length regarding wound care and f/u at [facility] , IF discharged from hospital. - Additional Data Intake & Output - Last 24 hours: Intake & Output 04/01/18 04/02/18 04/03/18 04/04/18 05:59 05:59 05:59 05:59 Intake Total 1145 / 1145 4140 / 4140 3713 / 3713 Output Total 1875 / 1875 3360 / 3360 1610 / 1610 Balance -730 / -730 780 / 780 2103 / 2103 Weight 187 lb 8 oz 186 lb 8 oz 187 lb 8 oz - Labs 04/02/18 04:05 04/02/18 04:05 Assessment and Plan (1) Traumatic ulcer of left lower leg, limited to breakdown of skin Status: Acute Assessment and plan: Assessment: Satisfactory progress. Wound has significantly improved. O K for d /c from wound care point of view. Plan: If MIST treatment is NOT available, Please CLEAN wound with NS and apply Bactroban or Bacitracin oint and cover with gauze bandage BID. If discharged, follow up at [facility] in 1 week. Current Visit: Yes (2) Congestive heart failure Problem details: His marketing segment manager is Dr. George Osorio, [facility] Status: Acute Current Visit: Yes (3) Chronic renal disease, stage 4, severely decreased glomerular filtration rate (GFR) between 15-29 mL/min/1.73 square meter Status: Acute Current Visit: Yes (4) Wound healing, delayed Status: Acute Current Visit: Yes (5) Tobacco abuse Status: Chronic Current Visit: Yes (6) Chronic renal failure, stage 4 (severe) Problem details: His band master is Dr. Ybarra, at [facility], [facility] in [place] Status: Acute Current Visit: Yes (7) Dyspnea due to congestive heart failure Status: Acute Current Visit: Yes - Time Spent With Patient Total time spent is greater than 50% in coordination of care (as documented) at patient's floor/unit and/or counseling patient:
[2018-04-03] MEDS: ASPIRIN 81 MG TAB.CHEW CHEWED SCH (08:57)
[2018-04-03] MEDS: BUMETANIDE 1 MG TABLET PO SCH (08:57)
[2018-04-03] MEDS: TAMSULOSIN 0.4 MG CAPSULE PO SCH (08:57)
[2018-04-03] MEDS: CARVEDILOL 6.25 MG TABLET PO SCH (08:57)
[2018-04-03] MEDS: AMIODARONE HCL 200 MG TABLET PO SCH (08:57)
[2018-04-03] MEDS: DOCUSATE SODIUM 100 MG CAPSULE PO SCH (08:58)
[2018-04-03] MEDS ORDERED: HYDROXYUREA 500 MG CAPSULE PO SCH (09:00)
[2018-04-03] MEDS: MUPIROCIN 2% TOPICAL SCH (11:43)
--- NOTE | 2018-04-03 12:54 | Internal Med Progress Note ---
Medical - PN: Subj Patient information: Note initiated : 04/03/18 at 12:43 pm Service Date, if different from initiated Date: [04/02/18 at 9:30 pm] Patient: Ac Ponce a 52 y/o M admitted on 03/28/18 for Difficulty Breathing/ CHF. Chief Complaint: [] Interval history: Mr. Ponce is a 52 year old M (visiting from [place]) with history of CHF, cardiomyopathy (non-ischemic?), status post AICD (placed 2015), hypertension hyperlipidemia, chronic renal failure, evaluated at ER for progressively worsening dyspnea since his arrival here on 03/21/18. He started a new Bumex bottle on 03/22/18, and found out that the new dose was reduced to 1 mg daily ( from 2 mg daily, his bsa officer adjusted it on last visit weeks ago). He double took the bumex dose on 03/24 to 03/26 (two 1mg pills daily), but that still did not improve his worsening symptoms of orthopnea and dyspnea on exertion. His symptoms are similar to 2 years ago, when he was hospitalized for acute CHF exacerbation. His chest x-ray and lab work are consistent with acute CHF exacerbation and renal failure. His estimated GFR (23) is very close to be on dialysis, and (when I saw him) his urine output is only ~300 mL after 40 mg IV Lasix 2. He is still dyspneic with exertion despite placed on O2 nasal cannula 2 Lpm. He will be admitted to ICU for further close monitoring, CPAP trial, increased Bumex dose. Dr. Ogden of nephrology service has been consulted for concern that his acute CHF exacerbation may not respond to IV diuresis. - Constitutional Vitals: Vital Signs Temp Pulse Resp BP Pulse Ox 97.0 F 50 L 18 112/70 96 04/03/18 12:00 04/03/18 12:00 04/03/18 12:00 04/03/18 12:00 04/03/18 12:00 Period Temp Pulse Resp BP Sys/[place] Pulse Ox Last 24 Hr 97.0 F-98.8 F 50-80 16-18 111-120/59-82 94-100 Intake and Output 04/02/18 04/03/18 04/03/18 21:59 05:59 13:59 Intake Total 753 / 753 1600 / 1600 300 / 300 Output Total 550 / 550 425 / 425 Balance 203 / 203 1600 / 1600 -125 / -125 Weight 187 lb 8 oz 187 lb 8 oz Patient Weight 04/04/18 05:59 Weight 187 lb 8 oz Intake & Output: Intake & Output 04/02/18 04/03/18 04/03/18 21:59 05:59 13:59 Intake Total 753 / 753 1600 / 1600 300 / 300 Output Total 550 / 550 425 / 425 Balance 203 / 203 1600 / 1600 -125 / -125 Weight 187 lb 8 oz 187 lb 8 oz Intake: IV 353 / 353 Dextrose 5%-Ns IV Solution 200 353 / 353 ml @ 50 mls/hr IV .Q4H [facility] Rx#: [id number] Oral 400 / 400 1600 / 1600 300 / 300 Output: Void Amount 550 / 550 425 / 425 Other: Meal Lunch 2 sandwiches and ice cream Breakfast Percent of Meal Consumed 100% 100% 100% Feeding Ability Independent Independent Assist with Tray Set Up Medical - PN: Obj Da - Labs CBC & Chem 7: 04/02/18 04:05 04/02/18 04:05 Labs: Abnormal Lab Results 04/02/18 04/02/18 04/01/18 04:05 04:05 14:52 RBC 6.29 H Hgb 19.8 H Hct 60.9 H RDW 16.4 H [place] % (Auto) [place] # (Auto) 1.1 H Sodium 128 L 132 L Chloride 88 L 87 L Carbon Dioxide 18 L Anion Gap 22.0 H BUN 99 H 104 H* Creatinine 3.3 H 3.5 H Glucose 144 H Total Bilirubin Alkaline Phosphatase 164 H 04/01/18 04/01/18 04/01/18 14:52 04:10 04:10 RBC 6.41 H Hgb 20.3 H* 20.3 H* Hct 60.6 H 61.5 H RDW 15.7 H [place] % (Auto) 12.1 H [place] # (Auto) 1.2 H Sodium 130 L Chloride 90 L Carbon Dioxide 20 L Anion Gap 20.0 H BUN 103 H* Creatinine 3.5 H Glucose Total Bilirubin 1.1 H Alkaline Phosphatase 178 H Meds: Medications Acetaminophen (Tylenol) 650 mg PO Q4-6HP PRN PRN Reason: PAIN/FEVER > 101 Albuterol/Ipratropium (Duoneb) 3 ml NEB Q6HRT [facility] Last Admin: 04/03/18 07:29 Dose: Not Given Amiodarone HCl (Cordarone) 200 mg PO QAC [facility] Last Admin: 04/03/18 08:57 Dose: 200 mg Aspirin (Aspirin) 81 mg CHEWED DAILY [facility] Last Admin: 04/03/18 08:57 Dose: 81 mg Budesonide (Pulmicort) 0.5 mg NEB Q12 [facility] Last Admin: 04/03/18 07:29 Dose: Not Given Bumetanide (Bumex) 1 mg PO DAILY [facility] Last Admin: 04/03/18 08:57 Dose: 1 mg Carvedilol (Coreg) 6.25 mg PO BIDCC [facility] Last Admin: 04/03/18 08:57 Dose: 6.25 mg Docusate Sodium (Colace) 100 mg PO BID [facility] Last Admin: 04/03/18 08:58 Dose: 100 mg Hydroxyurea (Hydrea) 1,000 mg PO DAILY [facility] Last Admin: 04/03/18 08:58 Dose: 1,000 mg Mupirocin (Bactroban Crm 2%) 1 gm TOPICAL BID [facility] Last Admin: 04/03/18 11:43 Dose: 1 gm Ondansetron HCl (Zofran) 4 mg IV Q4-6HP PRN PRN Reason: Nausea And Vomiting Pantoprazole Sodium (Protonix) 40 mg PO QAMAC [facility] Last Admin: 04/03/18 07:50 Dose: 40 mg Simvastatin (Zocor) 10 mg PO HS [facility] Last Admin: 04/02/18 21:20 Dose: 10 mg Sodium Chloride (Saline Flush) 10 ml IV Q8 [facility] Last Admin: 04/03/18 07:51 Dose: 10 ml Tamsulosin HCl (Flomax) 0.4 mg PO DAILY [facility] Last Admin: 04/03/18 08:57 Dose: 0.4 mg Medical - PN: A/P - Time Spent With Patient Total time spent is greater than 50% in coordination of care (as documented) at patient's floor/unit and/or counseling patient: (1) Dyspnea due to congestive heart failure Status: Acute Current Visit: Yes (2) Congestive heart failure Problem details: His bsa officer is Dr. George Osorio, [facility] Status: Acute Assessment and plan: Echo 03/28/18: Tissue fraction 50% severely reduced at LVEF, moderate RV dilated, moderate LA & RA dilated, moderate pulmonary hypertension (50-70 mmHg), increased right atrial pressure with dilated IVC Current Visit: Yes (3) Chronic renal failure, stage 4 (severe) Problem details: His governor assembler is Dr. Ybarra, at [facility], hold in [place] Status: Acute Current Visit: Yes (4) Tobacco abuse Status: Chronic Current Visit: Yes Medical - PN: Qual - VTE Deep Vein Thrombosis/Pulmonary Embolism Present on Admission: No
--- NOTE | 2018-04-03 14:47 | Discharge Summary ---
Medical - DS: Prov Patient information: Note initiated : 04/03/18 at 2:05 pm Service Date, if different from initiated Date: [] Patient: Ac Ponce 52 y/o M admitted on 03/28/18 for Difficulty Breathing/ CHF. Chief Complaint: [] Date of admission: 03/28/18 05:50 Discharge date: 04/03/18 Primary care physician: [facility] Admitting clinician: Angie Hopkins Consults: 03/28/18 Consult to Physician [CONS] Stat Comment: Consulting Provider: Radha Ogden Reason For Exam: Physician to Consult 03/28/18 00:54 Consult to Physician [CONS] Stat Comment: Consulting Provider: Angie Hopkins Reason For Exam: Physician to Consult 03/28/18 18:26 Consult to Physician [CONS] Routine Comment: left cook ulcer Consulting Provider: Usama Santiago Reason For Exam: Physician to Consult Attending physician on discharge: Angie Hopkins Medical - DS: Meds - Discharge Medications Prescriptions: Hydroxyurea [Hydrea] 500 mg PO DAILY #30 capsule Ipratropium/Albuterol Sulfate [Combivent] 2 puff INH QID PRN #1 inhaler PRN Reason: Shortness Of Breath Or Wheezing Mupirocin Crm 2% [Bactroban Crm 2%] 1 gm TOPICAL BID #1 tube Pantoprazole [Protonix] 40 mg PO QAMAC #30 tablet Active and Home Medications: Home Medications Amiodarone HCl [Cordarone] 200 mg PO DAILY 03/27/18 [History Confirmed 03/27/18 Last Taken Unknown] Aspirin [Aspirin EC] 81 mg PO DAILY 03/27/18 [History Confirmed 03/27/18 Last Taken Unknown] Bumetanide [Bumex] 1 mg PO DAILY 03/27/18 [History Confirmed 03/27/18 Last Taken Unknown] Carvedilol [Coreg] 6.25 mg PO BIDCC 03/27/18 [History Confirmed 03/27/18 Last Taken Unknown] Colchicine [Colcrys] 0.6 mg PO DAILYP PRN 03/27/18 [History Confirmed 03/27/18 Last Taken Unknown] Febuxostat [Uloric] 40 mg PO DAILY 03/27/18 [History Confirmed 03/27/18 Last Taken Unknown] Fluticasone Hfa 220Mcg [Flovent Hfa 220Mcg] 1 puff INH BID 03/27/18 [History Confirmed 03/27/18 Last Taken Unknown] Lisinopril [Zestril] 5 mg PO DAILY 03/27/18 [History Confirmed 03/27/18 Last Taken Unknown] Simvastatin [Zocor] 10 mg PO HS 03/27/18 [History Confirmed 03/27/18 Last Taken Unknown] Spironolactone [Aldactone] 25 mg PO DAILY 03/27/18 [History Confirmed 03/27/18 Last Taken Unknown] Tamsulosin HCl [Flomax] 0.4 mg PO DAILY 03/27/18 [History Confirmed 03/27/18 Last Taken Unknown] Umeclidinium [place] [Incruse Ellipta] 62.5 mcg IH DAILY 03/27/18 [History Confirmed 03/27/18 Last Taken Unknown] Medical - DS: Hosp Hospital course: Mr. Ponce is a 52 year old M (visiting from [place]) with history of CHF, cardiomyopathy (non-ischemic?), status post AICD (placed 2015), hypertension hyperlipidemia, chronic renal failure, evaluated at ER for progressively worsening dyspnea since his arrival here on 03/21/18. He started a new Bumex bottle on 03/22/18, and found out that the new dose was reduced to 1 mg daily ( from 2 mg daily, his ict development manager adjusted it on last visit weeks ago). He double took the bumex dose on 03/24 to 03/26 (two 1mg pills daily), but that still did not improve his worsening symptoms of orthopnea and dyspnea on exertion. His symptoms are similar to 2 years ago, when he was hospitalized for acute CHF exacerbation. His chest x-ray and lab work are consistent with acute CHF exacerbation and renal failure. His estimated GFR (23) is very close to be on dialysis, and he was still dyspneic with exertion despite placed on O2 nasal cannula [address] Ogden of nephrology service has been consulted for concern that his acute CHF exacerbation may not respond to IV diuresis, and he will need dialysis. He responded to aggressive diuresis with IV Lasix, followed by resumption of his prior Bumex dose. However he became hemoconcentrated as he returned to his true dry weight, suggesting secondary polycythemia. He underwent gentle IV fluid rehydration, and bone density technician Dr. Ratliff is consulted. She recommended a phlebotomy for 200 mL, and start hydroxyurea, outpatient follow-up with hematology clinic for further phlebotomy/hydroxyurea management early next week. He is to follow-up also with 4 h youth development specialist Dr. Ogden, on close monitoring of his renal function (and coordinate care since he has no PCP in [facility] as a visitor). He is advised to completely stop smoking due to severe risks of polycythemia secondary to his condition as well as his already poor cardiac functions as shown on 2D echocardiogram ( with ejection fraction 15%, with four- chamber dilatations, moderate pulmonary hypertension with 50-70 mmHg). Discharge diagnosis: Dyspnea due to congestive heart failure Secondary discharge diagnosis: Congestive heart failure Chronic renal failure, stage 4 (severe) polycythemia, Secondary Moderate pulmonary hypertension (50-70 mmHg) Wound delayed healing, from traumatic ulcer of left lower leg COPD Tobacco abuse - Time Spent with Patient Total time spent providing and/or coordinating discharge services: Greater than 30 minutes Medical - DS: Exam - Constitutional Vitals: Vital Signs Temp Pulse Resp BP BP Pulse Ox 04/03/18 12:00 97.0 F 50 L 18 112/70 96 04/03/18 09:00 60 04/03/18 07:54 97.8 F 54 L 16 120/82 99 04/03/18 03:48 97.9 F 56 L 16 118/76 100 04/02/18 23:56 98.8 F 60 18 120/80 94 04/02/18 19:29 98.2 F 58 L 18 112/73 96 04/02/18 16:54 98.0 F 80 16 119/74 96 04/02/18 16:00 98.3 F 70 18 111/59 Intake and Output 04/03/18 04/03/18 04/03/18 05:59 13:59 21:59 Intake Total 1600 / 1600 300 / 300 Output Total 425 / 425 Balance 1600 / 1600 -125 / -125 Intake: Oral 1600 / 1600 300 / 300 Output: Void Amount 425 / 425 Other: Meal 2 sandwiches and ice cream Lunch Percent of Meal Consumed 100% 100% Feeding Ability Independent Assist with Tray Set Up Weight 187 lb 8 oz Patient Weight 04/04/18 05:59 Weight 187 lb 8 oz General appearance: no acute distress - Head Head exam: Present: atraumatic, normocephalic - Eye Eye exam: Present: EOMI Pupils: Present: normal accommodation, PERRL - ENT ENT exam: Present: mucous membranes dry, normal oropharynx - Neck Neck exam: Present: full ROM. Absent: lymphadenopathy, meningismus - Respiratory Respiratory exam: Present: CTAB. Absent: accessory muscle use - Cardiovascular Cardiovascular exam: Present: +S1, +S2. Absent: gallop, rubs Additional comments: Very distant heart sounds - GI/Abdominal GI/Abdominal exam: Absent: distended, guarding, rebound, tenderness - Extremities Exam Extremities exam: Absent: pedal edema, tenderness Additional comments: Delay wound healing on left lower leg traumatic ulcer. - Neurological Exam Neurological exam: Present: alert, CN II-XII intact, oriented X3 - Skin Skin exam: Present: dry, warm Medical - DS: Data Procedures and tests throughout hospitalization: 2D echocardiogram on 03/28/2018: Preliminary report, 15% ejection fraction, moderate 4 chamber dilatations, moderate pulmonary hypertension, mild to moderate central aortic insufficiency. Labs on day of discharge: Preliminary micro results at discharge 04/01/18 11:22 Wound Culture - Preliminary Leg - Lower Left Medical - DS: A/P - Patient/Caregiver Discharge Instructions Activity: increase activity as tolerated Diet: Renal Additional Instructions: Resume home renal diet as tolerated. Activity as tolerated. Follow up with your primary care physician 1-2 weeks after discharge. Follow up with Dr. Ogden on 04/06 at 11:30 am. For wound care: Apply Bactroban cream and gauze twice a day. After discharge, patient is to follow up with wound healing center within a week. Contact the office on Thursday 04/05 to schedule. [phone] Emma Ratliff's office on Thursday to set up an appointment. (p) [phone] [place] [address], [place]. A Referral and your records have been sent to his office. Return to ER for shortness of breath, chest pain, unable to go to the bathroom, nausea and/or vomiting, chills, fever, dizziness, redness, swelling, bleeding, signs of infection, or other acute symptom. Prescriptions: Hydroxyurea [Hydrea] 500 mg PO DAILY #30 capsule Ipratropium/Albuterol Sulfate [Combivent] 2 puff INH QID PRN #1 inhaler PRN Reason: Shortness Of Breath Or Wheezing Mupirocin Crm 2% [Bactroban Crm 2%] 1 gm TOPICAL BID #1 tube Pantoprazole [Protonix] 40 mg PO QAMAC #30 tablet - Problem Maintenance (1) Dyspnea due to congestive heart failure Status: Acute (2) Congestive heart failure Status: Acute Comment: His ict development manager is Dr. George Osorio, [facility] Qualifiers: Heart failure type: systolic Heart failure chronicity: acute on chronic Qualified Code(s): I50.23 - Acute on chronic systolic (congestive) heart failure (3) Chronic renal failure, stage 4 (severe) Status: Acute Comment: His 4 h youth development specialist is Dr. Ybarra, at [facility] , hold in [place] (4) Polycythemia secondary to hypoxia Status: Acute (5) Pulmonary hypertension Status: Acute (6) Tobacco abuse Status: Chronic (7) COPD (chronic obstructive pulmonary disease) Status: Acute (8) Wound healing, delayed Status: Acute - Follow up Plan Follow up with: Radha Ogden MD [Physician] - 04/06/18 11:30 am Usama Santiago MD [Physician] - (After discharge, patient is to follow up with wound healing center within a week.) Emma Ratliff [Physician] - (Follow-up appointment next week) Disposition: Home, Self-Care Prognosis: Serious Rehab Potential: Fair Medical - DS: Qual - VTE Deep Vein Thrombosis/Pulmonary Embolism Present on Admission: No
== END 2018-04-03 16:30 | disposition home or self-care (01) | DRG 291 ==
LOC: ED 22:50 → ICU 03-28 05:48 → MEDSUR 03-30 20:57
PROVIDERS: ADMIT Emergency Medicine; ATTEND Emergency Medicine

== ENCOUNTER 2018-07-13 09:26 | Observation (INO) ==
--- NOTE | 2018-07-13 09:42 | Nephrology Consult Note ---
History of Present Illness - Reason for Consult Patient information: Note initiated : 07/13/18 Ac Ponce is a 53-year-old male admitted on 07/13/18 for acute kidney injury on chronic kidney disease stage 4. Consult date: 07/13/18 acute renal failure, chronic renal failure, metabolic acidosis Requesting physician: Torres San - Chief Complaint Abnormal blood work - History of Present Illness Ac Ponce is a 53-year-old male with chronic combined systolic and diastolic heart failure (Echo on 03/28/18: LVEF 15%, severe global hypokinesis, pulmonary hypertension, Grade III diastolic dysfunction), chronic obstructive pulmonary disease, chronic kidney disease stage 4, admitted on 07/13/18 (direct) for acute kidney injury on chronic kidney disease stage 4 after blood work was reviewed by Dr. Ogden. I discussed the patient with her. 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 He was probably using Metolazone daily instead of every other day by his daughter' s pill count. He reports feeing great without edema, dyspnea or anorexia. Review of Systems Constitutional: no anorexia, no weight gain Nose, mouth and throat: no nasal congestion, no sore throat Cardiovascular: no chest pain, no leg edema Respiratory: no cough, no dyspnea Gastrointestinal: no abdominal pain, no nausea Genitourinary: no dysuria, no hematuria Musculoskeletal: no back pain, no joint swelling Integumentary: no erythema, no wounds Neurological: no confusion, no focal weakness Psychiatric: no anxiety, no panic attacks Endocrine: no cold intolerance, no heat intolerance Hematologic/Lymphatic: no easy bleeding, no easy bruising Allergic/Immunologic: no tongue swelling, no uticaria Medications and Allergies Home Medications Medication Instructions Recorded Confirmed Type Amiodarone HCl [Cordarone] 200 mg PO DAILY 03/27/18 06/28/18 History Aspirin [Aspirin EC] 81 mg PO DAILY 03/27/18 06/28/18 History Colchicine [Colcrys] 0.6 mg PO DAILYP PRN 03/27/18 06/28/18 History Febuxostat [Uloric] 40 mg PO DAILY 03/27/18 06/28/18 History Fluticasone Hfa 220Mcg [Flovent 1 puff INH BID 03/27/18 06/28/18 History Hfa 220Mcg] Simvastatin [Zocor] 10 mg PO HS 03/27/18 06/28/18 History Tamsulosin HCl [Flomax] 0.4 mg PO DAILY 03/27/18 06/28/18 History spironolactone 25 mg tablet 25 mg PO QDAY #30 tab 04/06/18 06/28/18 Rx walker See Dose Instructions .ROUTE 05/10/18 06/28/18 Rx .MEDSUPPLY #1 each nebulizer and compressor See Dose Instructions .ROUTE 06/14/18 06/28/18 Rx .MEDSUPPLY #1 each ipratropium-albuterol 0.5 mg-3 3 ml INHALATION Q8H PRN #90 ml 06/21/18 06/28/18 Rx mg(2.5 mg base)/3 mL nebulization soln bumetanide 1 mg tablet 1 mg PO QDAY PRN #30 tab 06/28/18 06/28/18 Rx bumetanide 1 mg tablet See Label Instructions .ROUTE 06/28/18 06/28/18 Rx .COMPLEX 30 Days #60 tab metolazone 2.5 mg tablet 2.5 mg PO Q OTHER DAY #15 tab 07/05/18 07/05/18 Rx carvedilol 6.25 mg tablet 6.25 mg PO BIDCC #60 tab 07/07/18 Rx sodium bicarbonate 325 mg tablet 325 mg PO BID #60 tab 07/07/18 Rx Allergies Allergy/AdvReac Type Severity Reaction Status Date / Time No Known Drug Allergies Allergy Verified 06/28/18 10:03 Exam - General Appearance General appearance: well-developed, appears started age EENT: mucous membranes moist Neck: supple Respiratory: clear Cardiology: no edema Gastrointestinal: no tenderness Integumentary: warm and dry Neurologic: no focal deficit, alert and oriented x3 Musculoskeletal: no deformities Psychiatric: mood/affect appropriate, cooperative Results - Lab Results 07/13/18 11:31 07/13/18 11:30 Assessment and Plan (1) Acute on chronic renal failure Ac Ponce is a 53-year-old male with chronic combined systolic and diastolic heart failure (Echo on 03/28/18: LVEF 15%, severe global hypokinesis, pulmonary hypertension, Grade III diastolic dysfunction), chronic obstructive pulmonary disease, chronic kidney disease stage 4, admitted on 07/13/18 (direct) for acute kidney injury on chronic kidney disease stage 4 after blood work was reviewed by Dr. Ogden. I discussed the patient with her. The patient reports feeling great and has no obvious uremic symptoms. Acute kidney injury on chronic kidney disease stage 4 with high anion gap metabolic acidosis and hyponatremia, present on arrival. Suspected overdiuresis due to Metolazone used daily instead of every other day. Work up: Urinalysis on 06/07/18: Straw, Clear, pH 6.0, SG 1.010, protein negative, occult blood negative, leukocyte esterase negative. Urine random total protein/creatinine on 06/07/18: 120 mg/g creatinine. Renal US on 03/28/18: Mildly atrophic right kidney. No hydronephrosis. Prevoid bladder volume measures 115 mL. Postvoid bladder volume measures 66 mL. Plan: Hold diuretics, ACEI/ARB. D5W 1 L + Sodium Bicarbonate 150 mEq IV at 100 ml/hour x 1. Hold Aspirin for anticipated need for tunnelled hemodialysis catheter. Avoid NSAIDs, nephrotoxic medications and IV contrast. Monitor BMP and urine output. Chronic hemodialysis initiation will be considered if there is no improvement. Status: Acute Priority: High Qualifiers: Acute renal failure type: unspecified Chronic kidney disease stage: stage 4 (severe) Qualified Code(s): N17.9 - Acute kidney failure, unspecified; N18.4 - Chronic kidney disease, stage 4 (severe) (2) Metabolic acidosis Please see above Status: Acute Priority: Medium (3) Hyponatremia Please see above Status: Acute Priority: Medium Past Medical History - Past Medical History Medical history: Reports: CHF, COPD, hyperlipidemia, hypertension, renal disease , other (Gout) Surgical history ED: Reports: pacemaker/AICD Family history: Reports: no significant family history - Social History smoking status: Current some day smoker Alcohol use: Reports: None Drug use: Reports: none
[2018-07-13 12:01] LABS: Mean Cell Volume 97.3 fL (80.0-100.0); Mean Corpuscular HGB Conc 33.5 g/dL (31.0-36.0); Mean Corpuscular Hemoglobin 32.6 pg (26.0-34.0); Platelet Count 166 K/mcL (140-440); RBC 5.31 M/mcL (4.50-5.90); Red Cell Distribution Width 17.3 % (11.5-14.5)
[2018-07-13 12:29] LABS: ALT/SGPT 20 U/l (0-40); Albumin/Globulin Ratio 1.1 (1.0-2.3); Alkaline Phosphatase 102 U/L (39-117); Bilirubin,Direct < 0.2 mg/dL (0.0-0.3); Blood Urea Nitrogen 144 mg/dl (6-20); Gamma Glutamyl Transpeptidase 83 U/L (8-61); Uric Acid 9.2 mg/dL (2.5-8.0)
[2018-07-13 12:31] LABS: Anisocytosis 1+ (NONE SEEN); Eosinophils % (Manual) 3 % (0-7); Lymphocytes % 21 % (15-49); Monocytes % (Manual) 4 % (1-12); Platelet Estimate NORMAL (NORMAL); RBC Morphology ABNORM (NORMAL); Segmented Neutrophils % 72 % (38-78)
[2018-07-13] MEDS ORDERED: SODIUM BICARBONATE VIAL 150 MEQ in DEXTROSE 5% IN WATER 850 ML IV ONE (13:00)
--- NOTE | 2018-07-13 14:19 | Internal Med History&Physical ---
Medical - H&P: HPI Patient information: Note initiated : 07/13/18 at 2:15 pm Service Date, if different from initiated Date: [] Patient: Ac Ponce a 53 y/o M admitted on 07/13/18 for Acute Chronic Renal Failure, SOB. Chief Complaint: [] Chief complaint: abnormal labs History of present illness: Mr. Ponce is a 53 year old M with a history of chronic kidney disease/ cardiomyopathy with LVEF 15%/pulmonary hypertension, COPD who had an outpatient nephrology appointment yesterday and during blood work was noted to have elevated BUN/creatinine and was directed to the hospital for admission I got a verbal signout information from Dr. Ogden ferry operator about this patient requiring admission for further evaluation and possibly initiation of hemodialysis. Hospitalist service was consulted to facilitate admission. On arrival patient is alert oriented. Denies any active distress. He recently moved from [place] to [place]. He plans to stay additional 6 months in the [facility]. He denies associated symptoms including shortness of breath , mental status change confusion, diarrhea dysuria itching, joint pain and rash , weight gain or weight loss. He further denies headache photophobia. 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) with EF 15% combined diastolic/systolic dysfunction Pulmonary hypertension BPH Hyperlipidemia COPD Gout Coronary artery disease CK stage III with progression Hypertension AICD pacemaker Pertinent family history: Nonsignificant Social history: Patient says he quit smoking and alcoholism year ago However per medical records he actively smokes and drinks Medical - H&P: Meds Home Medications Medication Instructions Recorded Confirmed Type Amiodarone HCl [Cordarone] 200 mg PO DAILY 03/27/18 07/13/18 History Aspirin [Aspirin EC] 81 mg PO DAILY 03/27/18 07/13/18 History Colchicine [Colcrys] 0.6 mg PO DAILYP PRN 03/27/18 07/13/18 History Febuxostat [Uloric] 40 mg PO DAILY 03/27/18 07/13/18 History Fluticasone Hfa 220Mcg [Flovent 1 puff INH QDAY 03/27/18 07/13/18 History Hfa 220Mcg] Simvastatin [Zocor] 10 mg PO HS 03/27/18 07/13/18 History Tamsulosin HCl [Flomax] 0.4 mg PO DAILY 03/27/18 07/13/18 History ipratropium-albuterol 0.5 mg-3 3 ml INHALATION Q8H PRN #90 ml 06/21/18 07/13/18 Rx mg(2.5 mg base)/3 mL nebulization soln metolazone 2.5 mg tablet 2.5 mg PO Q OTHER DAY #15 tab 07/05/18 07/13/18 Rx sodium bicarbonate 325 mg tablet 325 mg PO BID #60 tab 07/07/18 07/13/18 Rx Bumetanide 2 mg PO QDAY PRN 07/13/18 07/13/18 History Carvedilol [Coreg] 6.25 mg PO BID 07/13/18 07/13/18 History Ipratropium/Albuterol Sulfate 1 puff INH QDAY 07/13/18 07/13/18 History [Combivent] Allergies Allergy/AdvReac Type Severity Reaction Status Date / Time No Known Drug Allergies Allergy Verified 06/28/18 10:03 Medical - H&P: Exam - Constitutional Vitals: Pulse Ox 100 07/13/18 11:02 General appearance: average body habitus, no acute distress Exam: Laboratory and pupils symmetric oral cavity dry No eardischarge Head normocephalic Neck no lymphadenopathy S1 and S2 regular rhythm, AICD No murmur Chest clear to auscultation Abdomen soft Lower extremity lymphedema Skin no suspicious lesion Psych alert cooperative Neuro nonfocal Medical - H&P: Reslt - Labs CBC & Chem 7: 07/14/18 03:37 07/14/18 03:37 Labs: Short CBC 07/13/18 Range/Units 11:31 WBC 7.2 (4.5-11.0) K/mcL Hgb 17.3 H (13.5-16.5) g/dL Hct 51.7 (41.0-55.0) % Plt Count 166 (140-440) K/mcL BMP 07/13/18 11:30 Sodium 132 L Potassium 3.7 Chloride 91 L Carbon Dioxide 18 L BUN 144 H* Creatinine 4.9 H Glucose 240 H Calcium 8.8 Liver Function 07/13/18 Range/Units 11:30 Total Bilirubin 0.8 (0.0-1.0) mg/dL Direct Bilirubin < 0.2 (0.0-0.3) mg/dL GGT 83 H (8-61) U/L AST 29 (0-37) U/l ALT 20 (0-40) U/l Alkaline Phosphatase 102 (39-117) U/L Albumin 4.0 (3.2-5.2) gm/dL Medical - H&P: A/P (1) Chronic renal disease, stage 4, severely decreased glomerular filtration rate (GFR) between 15-29 mL/min/1.73 square meter Current visit: No Status: Acute * Progression to end-stage renal disease- managed by nephrology. Patient admitted for observation and repeat labs and possible initiation of hemodialysis. Continue management per nephrology * Uremia with metabolic acidosis-managed per nephrology Issues addressed by hospitalist service * NYHA class III systolic heart failure-currently well compensated. Last known EF 15%. Continue Coreg, Diuretics held as per nephrology recommendations due to likely over diuresis * History of gout continue colchicine/uloric * History of coronary artery disease continue aspirin/Coreg * History of COPD continue fluticasone * hyperlipidemia- on statin * BPH-on tamsulosin * For code * prophylaxis- heparin Plan * Renal issues management as per nephrology * Pre-existing medical condition management as above * Admitted as observation telemetry Medical - H&P: Qual - VTE Deep Vein Thrombosis/Pulmonary Embolism Present on Admission: Yes
[2018-07-13] MEDS ORDERED: IPRATROPIUM/ALBUTEROL 3 ML AMPUL.NEB NEB PRN (14:29)
[2018-07-13] MEDS ORDERED: COLCHICINE 0.6 MG TABLET PO PRN (14:29)
[2018-07-13] MEDS: 0.9 % SODIUM CHLORIDE 10 ML SYRINGE IV SCH ×2 (15:00→21:14)
[2018-07-13] MEDS: CARVEDILOL 6.25 MG TABLET PO SCH (17:43)
[2018-07-13] MEDS: ACETAMINOPHEN 325 MG TABLET PO PRN (19:07)
[2018-07-13] MEDS: SENNOSIDES/DOCUSATE SODIUM 1 TAB TABLET PO SCH (21:06)
[2018-07-13] MEDS: DOCUSATE SODIUM 100 MG CAPSULE PO SCH (21:06)
[2018-07-13] MEDS: HEPARIN 5,000 UNIT/ML VIAL SQ SCH (21:07)
[2018-07-13] MEDS: SIMVASTATIN 10 MG TABLET PO SCH (21:14)
[2018-07-13] MEDS: SODIUM BICARBONATE 650 MG TABLET PO SCH (21:14)
[2018-07-14 05:32] LABS: Mean Cell Volume 98.1 fL (80.0-100.0); Mean Corpuscular HGB Conc 33.2 g/dL (31.0-36.0); Mean Corpuscular Hemoglobin 32.6 pg (26.0-34.0); Platelet Count 158 K/mcL (140-440); RBC 4.87 M/mcL (4.50-5.90); Red Cell Distribution Width 17.3 % (11.5-14.5)
[2018-07-14] MEDS: 0.9 % SODIUM CHLORIDE 10 ML SYRINGE IV SCH ×3 (05:53→20:38)
[2018-07-14 06:10] LABS: ALT/SGPT 18 U/l (0-40); Albumin 3.5 gm/dL (3.2-5.2); Albumin/Globulin Ratio 1.1 (1.0-2.3); Alkaline Phosphatase 95 U/L (39-117); Bilirubin,Direct < 0.2 mg/dL (0.0-0.3); Blood Urea Nitrogen 144 mg/dl (6-20); Gamma Glutamyl Transpeptidase 75 U/L (8-61); Uric Acid 8.9 mg/dL (2.5-8.0)
[2018-07-14] MEDS ORDERED: POTASSIUM CHLORIDE 20 MEQ TABLET PO ONE (06:20)
--- NOTE | 2018-07-14 06:26 | Nephrology Progress Note ---
Subjective Patient information: Note initiated : 07/14/18 at 6:21 am Ac Ponce is a 53-year-old male admitted on 07/13/18 for acute kidney injury on chronic kidney disease stage 4. Chief Complaint: Abnormal blood work Principal diagnosis: Acute kidney injury on chronic kidney disease stage 4 Pertinent ROS: No anorexia No weakness No shortness of breath No chest pain Objective - Vital Signs Vital signs: Vital Signs Temp Pulse Resp BP Pulse Ox 07/14/18 04:52 97.8 F 16 107/65 07/14/18 00:05 96.9 F L 16 115/75 98 07/13/18 19:00 58 L 100 07/13/18 18:47 97.2 F 18 114/82 100 07/13/18 16:17 97.7 F 18 96/75 96 07/13/18 11:12 96.8 F L 18 130/85 100 07/13/18 11:02 100 Intake and Output 07/13/18 07/14/18 07/14/18 21:59 05:59 13:59 Intake Total 480 / 480 900 / 900 Output Total 875 / 875 325 / 325 Balance -395 / -395 575 / 575 Intake: Oral 480 / 480 900 / 900 Output: Void Amount 875 / 875 325 / 325 Other: Meal snack Percent of Meal Consumed 100% Feeding Ability Assist with Tray Set Up Urine Appearance Clear Clear Urine Color Straw Dark Yellow Urine Odor Normal Normal Weight 200 lb Intake & Output: Intake & Output 07/13/18 07/14/18 07/14/18 21:59 05:59 13:59 Intake Total 480 / 480 900 / 900 Output Total 875 / 875 325 / 325 Balance -395 / -395 575 / 575 Weight 200 lb Intake: Oral 480 / 480 900 / 900 Output: Void Amount 875 / 875 325 / 325 Other: Meal snack Percent of Meal Consumed 100% Feeding Ability Assist with Tray Set Up Urine Appearance Clear Clear Urine Color Straw Dark Yellow Urine Odor Normal Normal - General Appearance General appearance: appears started age, chronically ill EENT: mucous membranes moist Neck: supple Respiratory: clear Cardiology: no edema, regular rate, regular rhythm Gastrointestinal: no tenderness, no guarding Integumentary: no rash, warm and dry Neurologic: no focal deficit, alert and oriented x3 Musculoskeletal: no deformities, no erythema Psychiatric: mood/affect appropriate, cooperative - Lab 10/24/18 03:37 07/14/18 03:37 Most recent lab results Calcium 8.4 mg/dl (8.6-10.4) L 07/14/18 03:37 Phosphorus 5.4 mg/dL (2.7-4.5) H 07/14/18 03:37 Magnesium 1.9 mg/dL (1.6-2.5) 07/14/18 03:37 Assessment and Plan (1) Acute on chronic renal failure Ac Ponce is a 53-year-old male with chronic combined systolic and diastolic heart failure (Echo on 03/28/18: LVEF 15%, severe global hypokinesis, pulmonary hypertension, Grade III diastolic dysfunction), chronic obstructive pulmonary disease, chronic kidney disease stage 4, admitted on 07/13/18 (direct) for acute kidney injury on chronic kidney disease stage 4 after blood work was reviewed by Dr. Ogden. Acute kidney injury on chronic kidney disease stage 4 with high anion gap metabolic acidosis and hyponatremia, present on arrival. Suspected overdiuresis due to Metolazone used daily instead of every other day. Work up: Urinalysis on 06/07/18: Straw, Clear, pH 6.0, SG 1.010, protein negative, occult blood negative, leukocyte esterase negative. Urine random total protein/creatinine on 06/07/18: 120 mg/g creatinine. Renal US on 03/28/18: Mildly atrophic right kidney. No hydronephrosis. Prevoid bladder volume measures 115 mL. Postvoid bladder volume measures 66 mL. Treatment: D5W 1 L + Sodium Bicarbonate 150 mEq IV at 100 ml/hour x 1 on 07/13/18. Progress: Urine output: 1300 ml reported in the past 16 hours. Creatinine decreased from 4.9 to 4.7 in the past 16 hours. Metabolic acidosis, resolved. Hyponatremia, mild. Hyperkalemia after correction of metabolic acidosis. No fluid overload. No obvious uremic symptoms. Plan: Hold diuretics, ACEI/ARB. Hold Aspirin for anticipated need for tunnelled hemodialysis catheter. Avoid NSAIDs, nephrotoxic medications and IV contrast. Monitor BMP and urine output. Potassium Chloride 40 mEq PO x 1. Chronic hemodialysis initiation will be considered if there is no improvement. Status: Acute Priority: High Qualifiers: Acute renal failure type: unspecified Chronic kidney disease stage: stage 4 (severe) Qualified Code(s): N17.9 - Acute kidney failure, unspecified; N18.4 - Chronic kidney disease, stage 4 (severe) (2) Metabolic acidosis Please see above Status: Resolved Priority: Medium (3) Hyponatremia Please see above Status: Acute Priority: Medium (4) Hypokalemia Please see above Status: Acute Priority: Medium
[2018-07-14 06:28] LABS: Estimated Average Glucose(eAG) 120 mg/dL; Hemoglobin A1C 5.8 % HGB (4.0-6.0)
[2018-07-14 06:50] LABS: Anisocytosis 1+ (NONE SEEN); Band Neutrophils % 1 % (0-10); Eosinophils % (Manual) 2 % (0-7); Lymphocytes % 31 % (15-49); Monocytes % (Manual) 8 % (1-12); Platelet Estimate NORMAL (NORMAL); RBC Morphology ABNORM (NORMAL); Segmented Neutrophils % 58 % (38-78)
[2018-07-14] MEDS: AMIODARONE HCL 200 MG TABLET PO SCH (08:51)
[2018-07-14] MEDS ORDERED: SODIUM BICARBONATE 50 MEQ/50 ML VIAL ONE (08:51)
[2018-07-14] MEDS: TAMSULOSIN 0.4 MG CAPSULE PO SCH (08:51)
[2018-07-14] MEDS: HEPARIN 5,000 UNIT/ML VIAL SQ SCH ×2 (08:51→20:37)
[2018-07-14] MEDS: SODIUM BICARBONATE 650 MG TABLET PO SCH ×2 (08:52→20:38)
[2018-07-14] MEDS: DOCUSATE SODIUM 100 MG CAPSULE PO SCH ×2 (08:52→20:38)
[2018-07-14] MEDS: CARVEDILOL 6.25 MG TABLET PO SCH ×2 (08:52→17:29)
[2018-07-14] MEDS: MULTIVIT,THER IRON,CA,FA & MIN 1 TABLET PO SCH (08:52)
[2018-07-14] MEDS ORDERED: ASPIRIN 81 MG TAB.CHEW PO SCH (09:00)
[2018-07-14] MEDS: FLUTICASONE HFA 220MCG INHALER INH SCH (09:39)
[2018-07-14] MEDS ORDERED: PNEUMOCOCCAL 23-VAL P-SAC VAC 0.5 ML VIAL IM ONE (10:00)
--- NOTE | 2018-07-14 10:34 | Internal Med Progress Note ---
Medical - PN: Subj Patient information: Note initiated : 07/14/18 at 10:29 am Service Date, if different from initiated Date: [] Patient: Ac Ponce a 53 y/o M admitted on 07/13/18 for Acute Chronic Renal Failure, SOB. Chief Complaint: [] Interval history: Mr. Ponce is a 53 year old M with a history of chronic kidney disease/ cardiomyopathy with LVEF 15%/pulmonary hypertension, COPD who had an outpatient nephrology appointment yesterday and during blood work was noted to have elevated BUN/creatinine and was directed to the hospital for admission I got a verbal signout information from Dr. Ogden fur feeder about this patient requiring admission for further evaluation and possibly initiation of hemodialysis. Hospitalist service was consulted to facilitate admission. On arrival patient is alert oriented. Denies any active distress. He recently moved from [place] to [place]. He plans to stay additional 6 months in the [facility]. He denies associated symptoms including shortness of breath , mental status change confusion, diarrhea dysuria itching, joint pain and rash , weight gain or weight loss. He further denies headache photophobia. He denies changes in medications He denies recent [id number] NSAIDs use Is currently on multiple diuretics including metolazone/Bumex/spironolactone for his underlying congestive heart failure Today on arrival BUN 144 creatinine 4.9 with bicarbonate 18/blood sugar 240 07/14-patient doing well. No overnight events. No concerns per staff. No telemetry events. Potassium down to 2.7. Managed by nephrology. On bicarbonate drip per nephrology. BUN at 144 creatinine down to 4.7 from 4.9. Aspirin on hold as per nephrology to facilitate tunneled hemodialysis catheter placement in next week . - Constitutional Vitals: Vital Signs Temp Pulse Resp BP Pulse Ox 98.1 F 58 L 16 115/75 96 07/14/18 07:35 07/14/18 07:35 07/14/18 07:35 07/14/18 07:35 07/14/18 07:35 Period Temp Pulse Resp BP Sys/Altman Pulse Ox Last 24 Hr 96.8 F-98.1 F 58-62 16-18 96-130/65-85 96-100 Intake and Output 07/13/18 07/14/18 07/14/18 21:59 05:59 13:59 Intake Total 480 / 480 900 / 900 Output Total 875 / 875 325 / 325 900 / 900 Balance -395 / -395 575 / 575 -900 / -900 Weight 200 lb Intake & Output: Intake & Output 07/13/18 07/14/18 07/14/18 21:59 05:59 13:59 Intake Total 480 / 480 900 / 900 Output Total 875 / 875 325 / 325 900 / 900 Balance -395 / -395 575 / 575 -900 / -900 Weight 200 lb Intake: Oral 480 / 480 900 / 900 Output: Void Amount 875 / 875 325 / 325 900 / 900 Other: Meal snack Percent of Meal Consumed 100% Feeding Ability Assist with Tray Set Up Urine Appearance Clear Clear Urine Color Straw Dark Yellow Urine Odor Normal Normal General appearance: cooperative, no acute distress Exam: Alert oriented nonlabored breathing Nondistended abdomen No anxiety Medical - PN: Obj Da - Labs CBC & Chem 7: 07/14/18 03:37 07/14/18 03:37 Labs: Abnormal Lab Results 07/14/18 07/14/18 07/13/18 03:37 03:37 11:31 Hgb 17.3 H RDW 17.3 H 17.3 H Nucleated RBCs 1 H RBC Morphology Abnorm A Abnorm A Anisocytosis 1+ A 1+ A Sodium 132 L Potassium 2.7 L* Chloride 86 L Carbon Dioxide Anion Gap 19.0 H BUN 144 H* Creatinine 4.7 H Glucose Uric Acid 8.9 H Calcium 8.4 L Phosphorus 5.4 H GGT 75 H Lactate Dehydrogenase 07/13/18 11:30 Hgb RDW Nucleated RBCs RBC Morphology Anisocytosis Sodium 132 L Potassium Chloride 91 L Carbon Dioxide 18 L Anion Gap 23.0 H BUN 144 H* Creatinine 4.9 H Glucose 240 H Uric Acid 9.2 H Calcium Phosphorus 5.8 H GGT 83 H Lactate Dehydrogenase 287 H Meds: Medications Acetaminophen (Tylenol) 650 mg PO Q4-6HP PRN PRN Reason: PAIN/FEVER > 101 Last Admin: 07/13/18 19:07 Dose: 650 mg Albuterol/Ipratropium (Duoneb) 3 ml NEB Q8HP PRN PRN Reason: shortness of breath/wheezing Amiodarone HCl (Cordarone) 200 mg PO [facility] Last Admin: 07/14/18 08:51 Dose: 200 mg Carvedilol (Coreg) 6.25 mg PO BIDCC [facility] Last Admin: 07/14/18 08:52 Dose: 6.25 mg Colchicine (Colcrys) 0.6 mg PO DAILYP PRN PRN Reason: Pain Last Admin: 07/14/18 08:52 Dose: 0.6 mg Docusate Sodium (Colace) 100 mg PO BID [facility] Last Admin: 07/14/18 08:52 Dose: 100 mg Fluticasone Propionate (Flovent Hfa 220mcg) 1 puff INH QDAY [facility] Last Admin: 07/14/18 09:39 Dose: Not Given Heparin Sodium (Porcine) (Heparin) 5,000 unit SQ Q12 [facility] Last Admin: 07/14/18 08:51 Dose: 5,000 unit Iron Carb/Multivit/[employer] Merchandiser/Folic Acid (Multivitamin W/Minerals) 1 tab PO DAILY [facility] Last Admin: 07/14/18 08:52 Dose: 1 tab Febuxostat [Uloric] (40 Mg Tab) 40 mg PO DAILY [facility] Pneumococcal Polyvalent Vaccine (Pneumovax 23) 0.5 ml IM .ONCE ONE Stop: 07/15/18 10:01 Senna/Docusate Sodium (Senna Plus Tablet) 1 tab PO HS [facility] Last Admin: 07/13/18 21:06 Dose: 1 tab Simvastatin (Zocor) 10 mg PO HS [facility] Last Admin: 07/13/18 21:14 Dose: 10 mg Sodium Bicarbonate (Sodium Bicarbonate) 325 mg PO BID [facility] Last Admin: 07/14/18 08:52 Dose: 325 mg Sodium Chloride (Saline Flush) 10 ml IV Q8 [facility] Last Admin: 07/14/18 05:53 Dose: 10 ml Tamsulosin HCl (Flomax) 0.4 mg PO DAILY [facility] Last Admin: 07/14/18 08:51 Dose: 0.4 mg Medical - PN: A/P - Time Spent With Patient Total time spent is greater than 50% in coordination of care (as documented) at patient's floor/unit and/or counseling patient: 15 - 24 minutes (1) Chronic renal disease, stage 4, severely decreased glomerular filtration rate (GFR) between 15-29 mL/min/1.73 square meter Status: Acute Assessment and plan: * Progression to end-stage renal disease-continue management per nephrology. Will likely require HD catheter placement in 1 week. Aspirin currently being held. * Uremia with metabolic acidosis-managed per nephrology * Hypokalemia management per nephrology Issues addressed by hospitalist service * NYHA class III systolic heart failure-currently well compensated. Last known EF 15%. Continue Coreg. Aspirin and Diuretics held as per nephrology recommendations * History of gout continue colchicine/uloric * History of coronary artery disease continue Coreg. ASA on hold to facilitate ST catheter placement next week * History of COPD continue fluticasone * hyperlipidemia- on statin * BPH-on tamsulosin * Full code * prophylaxis- heparin Plan * Hold aspirin and diuretics * Renal issues management as per nephrology * Pre-existing medical condition management as above * Possible discharge in 24 hours if renal status remains stable along with scheduled outpatient HD catheter placement in 1 week Current Visit: No Medical - PN: Qual - VTE Deep Vein Thrombosis/Pulmonary Embolism Present on Admission: Yes
[2018-07-14] MEDS: SENNOSIDES/DOCUSATE SODIUM 1 TAB TABLET PO SCH (20:38)
[2018-07-14] MEDS: SIMVASTATIN 10 MG TABLET PO SCH (20:38)
[2018-07-14] MEDS: ACETAMINOPHEN 325 MG TABLET PO PRN (20:44)
[2018-07-15] MEDS: 0.9 % SODIUM CHLORIDE 10 ML SYRINGE IV SCH (05:32)
[2018-07-15 06:09] LABS: Mean Cell Volume 98.7 fL (80.0-100.0); Mean Corpuscular Hemoglobin 32.5 pg (26.0-34.0); Platelet Count 162 K/mcL (140-440); RBC 4.96 M/mcL (4.50-5.90); Red Cell Distribution Width 17.1 % (11.5-14.5)
[2018-07-15 06:54] LABS: Anisocytosis 1+ (NONE SEEN); Basophils % (Manual) 1 % (0-2); Eosinophils % (Manual) 1 % (0-7); Lymphocytes % 27 % (15-49); Monocytes % (Manual) 12 % (1-12); Platelet Estimate NORMAL (NORMAL); RBC Morphology ABNORM (NORMAL); Segmented Neutrophils % 59 % (38-78)
[2018-07-15 07:14] LABS: ALT/SGPT 19 U/l (0-40); Albumin 3.4 gm/dL (3.2-5.2); Albumin/Globulin Ratio 0.9 (1.0-2.3); Alkaline Phosphatase 91 U/L (39-117); Bilirubin,Direct < 0.2 mg/dL (0.0-0.3); Blood Urea Nitrogen 123 mg/dl (6-20); Gamma Glutamyl Transpeptidase 75 U/L (8-61); Uric Acid 9.4 mg/dL (2.5-8.0)
[2018-07-15] MEDS ORDERED: POTASSIUM CHLORIDE 20 MEQ TABLET PO ONE (08:37)
[2018-07-15] MEDS: SODIUM BICARBONATE 650 MG TABLET PO SCH (09:23)
[2018-07-15] MEDS: CARVEDILOL 6.25 MG TABLET PO SCH (09:23)
[2018-07-15] MEDS: DOCUSATE SODIUM 100 MG CAPSULE PO SCH (09:24)
[2018-07-15] MEDS: AMIODARONE HCL 200 MG TABLET PO SCH (09:24)
[2018-07-15] MEDS: TAMSULOSIN 0.4 MG CAPSULE PO SCH (09:24)
[2018-07-15] MEDS: MULTIVIT,THER IRON,CA,FA & MIN 1 TABLET PO SCH (09:25)
[2018-07-15] MEDS: FLUTICASONE HFA 220MCG INHALER INH SCH (09:25)
[2018-07-15] MEDS: HEPARIN 5,000 UNIT/ML VIAL SQ SCH (09:25)
[2018-07-15] MEDS ORDERED: PNEUMOCOCCAL 23-VAL P-SAC VAC 0.5 ML VIAL IM ONE (10:00)
[2018-07-15 12:47] LABS: Blood Urea Nitrogen 117 mg/dl (6-20)
--- NOTE | 2018-07-15 13:16 | Discharge Summary ---
Medical - DS: Prov Patient information: Note initiated : 07/15/18 at 1:13 pm Service Date, if different from initiated Date: [] Patient: Ac Ponce 53 y/o M admitted on 07/13/18 for Acute Chronic Renal Failure, SOB. Chief Complaint: [] Date of admission: 07/13/18 11:02 Discharge date: 07/15/18 Primary care physician: Berto Vega DO Consults: 07/13/18 11:18 Consult to Physician [CONS] Routine Comment: Consulting Provider: Lamin Potts Reason For Exam: Physician to Consult Medical - DS: Meds - Discharge Medications Prescriptions: Bumetanide 1 mg PO QDAY PRN #30 tab PRN Reason: edema Active and Home Medications: Home Medications Amiodarone HCl [Cordarone] 200 mg PO DAILY 03/27/18 [History Confirmed 07/13/18 Last Taken 07/13/18 10:00 200 mcg] Aspirin [Aspirin EC] 81 mg PO DAILY 03/27/18 [History Confirmed 07/13/18 Last Taken 07/13/18 10:00] Colchicine [Colcrys] 0.6 mg PO DAILYP PRN 03/27/18 [History Confirmed 07/13/18 Last Taken Unknown] Febuxostat [Uloric] 40 mg PO DAILY 03/27/18 [History Confirmed 07/13/18 Last Taken 07/13/18 10:00] Fluticasone Hfa 220Mcg [Flovent Hfa 220Mcg] 1 puff INH QDAY 03/27/18 [History Confirmed 07/13/18 Last Taken Unknown] Simvastatin [Zocor] 10 mg PO HS 03/27/18 [History Confirmed 07/13/18 Last Taken 07/13/18 10:00] Tamsulosin HCl [Flomax] 0.4 mg PO DAILY 03/27/18 [History Confirmed 07/13/18 Last Taken 07/13/18 10:00] ipratropium-albuterol 0.5 mg-3 mg(2.5 mg base)/3 mL nebulization soln 3 ml INHALATION Q8H PRN #90 ml 06/21/18 [Rx Confirmed 07/13/18 Last Taken Unknown] sodium bicarbonate 325 mg tablet 325 mg PO BID #60 tab 07/07/18 [Rx Confirmed Last Taken 07/13/18 10:00] Carvedilol [Coreg] 6.25 mg PO BID 07/13/18 [History Confirmed 07/13/18 Last Taken 07/13/18 10:00] Ipratropium/Albuterol Sulfate [Combivent] 1 puff INH QDAY 07/13/18 [History Confirmed 07/13/18 Last Taken 07/13/18 10:00] Bumetanide 1 mg PO QDAY PRN #30 tab 07/15/18 [Rx Last Taken Unknown] Medical - DS: Hosp Hospital course: Discharge diagnosis * A/c On CKD- patient was managed per nephrology. Acute worsening was attributed to overdiuresis. Metolazone and Bumex was held temporarily. Uremia improved. Patient is being discharged as per nephrology recommendations on 1 mg Bumex daily. Patient will follow up with nephrology as scheduled by nephrology clinic. * Uremia with metabolic acidosis was managed per nephrology * Hypokalemia- was managed per nephrology. Potassium level normalized. * Issues addressed by hospitalist service * NYHA class III systolic heart failure-currently well compensated. Last known EF 15%. Continue Coreg/Aspirin and Diuretics Bumex 1 mg daily per nephrology * History of gout continue colchicine/uloric * History of coronary artery disease continue Coreg. ASA on hold to facilitate ST catheter placement next week * History of COPD continue fluticasone * hyperlipidemia- on statin * BPH-on tamsulosin Brief hospital course Mr. Ponce is a 53 year old M with a history of chronic kidney disease/ cardiomyopathy with LVEF 15%/pulmonary hypertension, COPD who had an outpatient nephrology appointment yesterday and during blood work was noted to have elevated BUN/creatinine and was directed to the hospital for admission I got a verbal signout information from Dr. 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 Hospitalist service was consulted to facilitate admission. On arrival patient is alert oriented. Denies any active distress. He recently moved from [place] to [place]. He plans to stay additional 6 months in the [facility]. He denies associated symptoms including shortness of breath , mental status change confusion, diarrhea dysuria itching, joint pain and rash , weight gain or weight loss. He further denies headache photophobia. He denies changes in medications He denies recent [id number] NSAIDs use Is currently on multiple diuretics including metolazone/Bumex/spironolactone for his underlying congestive heart failure Today on arrival BUN 144 creatinine 4.9 with bicarbonate 18/blood sugar 240 07/14-patient doing well. No overnight events. No concerns per staff. No telemetry events. Potassium down to 2.7. Managed by nephrology. On bicarbonate drip per nephrology. BUN at 144 creatinine down to 4.7 from 4.9. Aspirin on hold as per nephrology to facilitate tunneled hemodialysis catheter placement in next week . Discharge diagnosis: . - Time Spent with Patient Total time spent providing and/or coordinating discharge services: Greater than 30 minutes Medical - DS: Exam - Constitutional Vitals: Vital Signs Temp Pulse Pulse Resp BP BP Pulse Ox 07/15/18 12:00 97.2 F 53 L 18 127/69 100 07/15/18 08:00 98.4 F 50 L 14 104/68 96 07/15/18 03:23 97.8 F 16 105/92 97 07/15/18 01:06 99.6 F H 51 L 20 105/73 96 07/14/18 21:42 62 07/14/18 18:51 98.0 F 55 L 18 103/72 98 07/14/18 18:31 58 L 94 07/14/18 15:50 98.1 F 18 108/69 99 07/14/18 15:39 108/69 07/14/18 15:35 51 L 77/57 99 Intake and Output 07/14/18 07/15/18 07/15/18 21:59 05:59 13:59 Intake Total 420 / 420 300 / 300 200 / 200 Output Total 600 / 600 600 / 600 Balance -180 / -180 -300 / -300 200 / 200 Intake: Oral 420 / 420 300 / 300 200 / 200 Output: Void Amount 600 / 600 600 / 600 Other: Meal Lunch Percent of Meal Consumed 50% Feeding Ability Assist with Tray Set Up Urine Appearance Clear Urine Color Bright Yellow Bright Yellow Urine Odor Normal Normal Stool Size Moderate Moderate Stool Color Brown Brown Stool Consistency Soft Formed # Bowel Movements 1 Weight 207 lb Medical - DS: Data Labs on day of discharge: Labs from last 24 hours 07/15/18 07/15/18 07/15/18 11:58 03:37 03:37 WBC 7.0 RBC 4.96 Hgb 16.2 Hct 49.0 MCV 98.7 MCH 32.5 MCHC 33.0 RDW 17.1 H Plt Count 162 MPV 9.6 Total Counted 100 Seg Neutrophils % 59 Band Neutrophils % Not Reportable Lymphocytes % 27 Monocytes % (Manual) 12 Eosinophils % (Manual) 1 Basophils % (Manual) 1 Platelet Estimate Normal RBC Morphology Abnorm A Anisocytosis 1+ A Sodium 136 136 Potassium 3.7 3.2 L Chloride 92 L 91 L Carbon Dioxide 32 H 27 Anion Gap 12.0 18.0 H BUN 117 H* 123 H* Creatinine 3.7 H 4.2 H GFR Calculation 17 15 Glucose 95 86 Uric Acid 9.4 H Calcium 9.1 8.9 Phosphorus 3.4 Magnesium 2.2 Total Bilirubin 0.8 Direct Bilirubin < 0.2 GGT 75 H AST 25 ALT 19 Alkaline Phosphatase 91 Lactate Dehydrogenase 220 Total Protein 7.0 Albumin 3.4 Globulin 3.6 Albumin/Globulin Ratio 0.9 L Triglycerides 95 Medical - DS: A/P - Patient/Caregiver Discharge Instructions Activity: increase activity as tolerated Diet: Renal Additional Instructions: Follow-up PCP in 5 days Follow-up nephrology as scheduled Continue Bumex 1 mg daily Continue renal diet and activity as advised Discussed importance of medication adherence Please review medication list with patient prior to discharge Please schedule follow-up with PCP/Providers prior to discharge and provide printouts Prescriptions: Bumetanide 1 mg PO QDAY PRN #30 tab PRN Reason: edema - Problem Maintenance (1) Chronic renal disease, stage 4, severely decreased glomerular filtration rate (GFR) between 15-29 mL/min/1.73 square meter Status: Acute - Follow up Plan Follow up with: Radha Ogden MD [Physician] - 07/19/18 2:30 pm () Disposition: Home, Self-Care Prognosis: Fair Rehab Potential: Fair I certify that the patient requires SNF services: No Overall status at discharge: patient is progressing back to baseline Medical - DS: Qual - VTE Deep Vein Thrombosis/Pulmonary Embolism Present on Admission: Yes
--- NOTE | 2018-07-15 16:34 | Nephrology Progress Note ---
Subjective Patient information: Note initiated : 07/15/18 at 4:32 pm Service Date, if different from initiated Date: [] Patient: Ac Ponce 53 y/o M admitted on 07/13/18 for Acute Chronic Renal Failure, SOB. Chief Complaint: [] Principal diagnosis: Acute kidney injury on chronic kidney disease stage 4 Interval history: Patient admitted to acute on chronic renal failure from overdiuresis, patient took metolazone 2.5mg every day instead of everyother day his diuretics were held during hospital stay his renal function is improving hypokalemia been treated with K supplement denies SOB, CP no dizziness no uremic symptoms feels better Pertinent ROS: as above Objective - Vital Signs Vital signs: Vital Signs Temp Pulse Pulse Resp BP BP Pulse Ox 07/15/18 13:53 16 07/15/18 12:51 127/69 07/15/18 12:00 97.2 F 53 L 18 127/69 100 07/15/18 08:00 98.4 F 50 L 14 104/68 96 07/15/18 03:23 97.8 F 16 105/92 97 07/15/18 01:06 99.6 F H 51 L 20 105/73 96 07/14/18 21:42 62 07/14/18 18:51 98.0 F 55 L 18 103/72 98 07/14/18 18:31 58 L 94 Intake and Output 07/15/18 07/15/18 07/15/18 05:59 13:59 21:59 Intake Total 300 / 300 200 / 200 Output Total 600 / 600 Balance -300 / -300 200 / 200 Intake: Oral 300 / 300 200 / 200 Output: Void Amount 600 / 600 Other: Meal Lunch Percent of Meal Consumed 50% Feeding Ability Assist with Tray Set Up Urine Appearance Clear Urine Color Bright Yellow Urine Odor Normal Stool Size Moderate Stool Color Brown Stool Consistency Formed # Bowel Movements 1 Intake & Output: Intake & Output 07/15/18 07/15/18 07/15/18 05:59 13:59 21:59 Intake Total 300 / 300 200 / 200 Output Total 600 / 600 Balance -300 / -300 200 / 200 Intake: Oral 300 / 300 200 / 200 Output: Void Amount 600 / 600 Other: Meal Lunch Percent of Meal Consumed 50% Feeding Ability Assist with Tray Set Up Urine Appearance Clear Urine Color Bright Yellow Urine Odor Normal Stool Size Moderate Stool Color Brown Stool Consistency Formed # Bowel Movements 1 - General Appearance General appearance: appears started age, chronically ill EENT: mucous membranes moist Neck: no JVD Respiratory: clear Cardiology: no rub, no edema, normal S1, normal S2 Gastrointestinal: no tenderness, no guarding Integumentary: warm and dry Neurologic: alert and oriented x3 Musculoskeletal: no erythema, no cyanosis Psychiatric: mood/affect appropriate - Lab 07/15/18 03:37 07/15/18 11:58 Most recent lab results Calcium 9.1 mg/dl (8.6-10.4) 07/15/18 11:58 Phosphorus 3.4 mg/dL (2.7-4.5) 07/15/18 03:37 Magnesium 2.2 mg/dL (1.6-2.5) 07/15/18 03:37 Assessment and Plan (1) Acute on chronic renal failure Status: Acute Priority: High Qualifiers: Acute renal failure type: unspecified Chronic kidney disease stage: stage 4 (severe) Qualified Code(s): N17.9 - Acute kidney failure, unspecified; N18.4 - Chronic kidney disease, stage 4 (severe) (2) Congestive heart failure Status: Acute Priority: High Comment: His aquarist is Dr. George Osorio, [facility] Qualifiers: Heart failure type: systolic Heart failure chronicity: acute on chronic Qualified Code(s): I50.23 - Acute on chronic systolic (congestive) heart failure - Narrative A/P Narrative: s.creatinine today is 3.7 from 4.9 on admission, BUN down to 117 from 149 renal function slowly improving no s/o CHF, patient feels good BP stable K improved with replacement given this would discharge home discussed with the patient and also daughter to ensure he holds lisinopril, spironolactone and metolazone please take bumex 1mg only on discharge but given very specific instruction to the patient and his daughter to weight him every day and take 2mg bumex if needed for 2-3 lb weight gain have liberal K in the diet recheck labs and follow in 3 days call if any concerns explained indications for dialysis, no acute indication at this time call if any concerns explained given poor cardiac function dialysis will be challenging will follow closely
== END 2018-07-15 13:45 | disposition home or self-care (01) ==
LOC: INTOOBSV 11:02 → ICU 11:02
PROVIDERS: ADMIT Internal Medicine; ATTEND Internal Medicine
CPT/HCPCS: 90686; 97161; 97167; 99220; 99224; 90732; A6248; G0378; G8978; G8979; J1644; J7070

== ENCOUNTER 2018-08-05 14:40 | Inpatient (IN) ==
[2018-08-05] MEDS ORDERED: ACETAMINOPHEN 325 MG TABLET PO PRN (14:41)
[2018-08-05] MEDS ORDERED: ONDANSETRON 4 MG/2 ML VIAL IV PRN (14:41)
[2018-08-05] MEDS ORDERED: NALOXONE HCL 0.4 MG/ML VIAL IV PRN (14:41)
[2018-08-05] MEDS ORDERED: LEVOFLOXACIN 500 MG TABLET PO SCH (15:00)
[2018-08-05] MEDS: IPRATROPIUM/ALBUTEROL 3 ML AMPUL.NEB NEB SCH ×4 (15:40→23:15)
--- NOTE | 2018-08-05 16:01 | Internal Med History&Physical ---
Medical - H&P: HPI Patient information: Note initiated : 08/05/18 at 3:57 pm Service Date, if different from initiated Date: [] Patient: Ac Ponce a 53 y/o M admitted on 08/05/18 for CHF. Chief Complaint: [] History of present illness: Mr. oPnce is a 53 year old M with history of congestive heart failure, last ejection fraction 15% in March 2018, pulmonary hypertension, COPD, chronic kidney disease. The patient was in the nephrology clinic where he presented for follow-up for shortness of breath. His chest x-ray was suggestive of congestive heart failure, the patient was advised to be admitted to the hospital for further management. According to the patient the patient was at his baseline status up until a few days ago, he then had a URI-viral syndrome, with subjective sensations of chills fever which was getting better. Last night he noticed that he was suddenly very short of breath, unable to move around much. The patient was seen in the emergency room last night, he was treated medically with IV steroids antibiotics nebulizers and Lasix. The patient was not admitted to the hospital as there was no bed available at this facility and according to the patient no bed available at [facility]. The patient did not want to go to [facility]. The patient therefore was discharged home with follow-up with nephrology the patient when seen today this morning was still significantly short of breath and was therefore admitted to the hospital for further management. Patient still smokes 1-2 cigarettes a month, he notes he has been taking his medications as prescribed Patient wishes to be full code Labs done in the ER show a normal WBC count at 7.7, hemoglobin 15, platelets 206 , lactic acid 1.7, sodium 141, potassium 3.7 bicarbonate 24 creatinine 3.5 glucose 162 troponin 0 0.04, BNP more than 70,000. Chest x-ray shows cardiomegaly and congestive heart failure All systems: reviewed and no additional remarkable complaints except as stated ( as per HPI rest negative) Medical - H&P: PMH Medical history: Medical History (Last Reviewed 08/05/18 @ 09:47 by Radha Ogden MD) CKD (chronic kidney disease), stage III (Chronic) History of methamphetamine use (Chronic) Cardiomyopathy (Chronic) Diabetes mellitus, type II (Chronic) Hypertension (Chronic) Congestive heart failure (Chronic) Chronic renal failure, stage 4 (severe) (Chronic) Acute on chronic renal failure (Chronic) Surgical history: Past Surgical History (Last Reviewed 08/05/18 @ 09:47 by Radha Ogden MD) History of implantable cardioverter-defibrillator (ICD) placement (Chronic ~2014 ) Pertinent family history: Family History (Last Reviewed 08/05/18 @ 09:47 by Radha Ogden MD) Father Diabetes Mother Hypertension Brother Alcoholism Sister Diabetes Grandmother Cancer Medical - H&P: Meds Home Medications Medication Instructions Recorded Confirmed Type Amiodarone HCl [Cordarone] 200 mg PO DAILY 03/27/18 08/05/18 History Aspirin [Aspirin EC] 81 mg PO DAILY 03/27/18 08/05/18 History Colchicine [Colcrys] 0.6 mg PO DAILYP PRN 03/27/18 08/05/18 History Febuxostat [Uloric] 40 mg PO DAILY 03/27/18 08/05/18 History Fluticasone Hfa 220Mcg [Flovent 1 puff INH QDAY 03/27/18 08/05/18 History Hfa 220Mcg] Simvastatin [Zocor] 10 mg PO HS 03/27/18 08/05/18 History Tamsulosin HCl [Flomax] 0.4 mg PO DAILY 03/27/18 08/05/18 History ipratropium-albuterol 0.5 mg-3 3 ml INHALATION Q8H PRN #90 ml 06/21/18 08/05/18 Rx mg(2.5 mg base)/3 mL nebulization soln sodium bicarbonate 325 mg tablet 325 mg PO BID #60 tab 07/07/18 08/05/18 Rx Carvedilol [Coreg] 6.25 mg PO BID 07/13/18 08/05/18 History Ipratropium/Albuterol Sulfate 1 puff INH QDAY 07/13/18 08/05/18 History [Combivent] bumetanide 1 mg tablet 1 mg PO BID tab 08/05/18 08/05/18 History doxycycline hyclate 100 mg tablet 100 mg PO BID 08/05/18 08/05/18 History predniSONE [Prednisone] 20 mg PO DAILY #23 tab 11/15/18 11/15/18 Rx Allergies Allergy/AdvReac Type Severity Reaction Status Date / Time No Known Drug Allergies Allergy Verified 07/19/18 14:41 Medical - H&P: Exam - Constitutional Exam: GENERAL: The patient is a well-developed, well-nourished in no apparent distress. Is alert and oriented x3. VITAL SIGNS: Reviewed and as noted elsewhere. HEENT: Head is normocephalic and atraumatic. Extraocular muscles are intact. Pupils are equal, round, and reactive to light. Nares appeared normal. Mouth appears any without lesions. Mucous membranes are moist. NECK: Normal to inspection, Supple, No lymphadenopathy or thyromegaly. LUNGS: Air entry equal on both sides, bilateral expiratory wheezing, patient able to speak full sentences no accessory muscle use. HEART: Regular rate and rhythm normal, S1 and S2 heard, no Gallop distant heart sounds, ABDOMEN: Soft, nontender, and nondistended. Positive bowel sounds. No hepatosplenomegaly was noted. EXTREMITIES: No cyanosis, clubbing, rash, lesions , +1 pitting edema NEUROLOGIC: Cranial nerves II through XII are grossly intact. Motor and Sensory System Grossly Intact PSYCHIATRIC: Normal affect, Normal Mood. Appropriate Behavior. SKIN: No ulceration or wounds noted, No jaundice, No rash noted. Medical - H&P: A/P - Narrative A/P Narrative: A/P Acute copd exacerbation Acute on chronic systolic heart failure Chronic Renal failure, Creat at baseline Cardiomyopathy h/o Polysubstance use Diabetes mellitus HTN HLD Plan Admit to tele IV bumex bid 1mg for now, watch urine output, PO Prednisone 40mg daily, levofloxacin 250mg q48hrs per renal dosing, no pna on Chest x ray , duonebs q4hrs Resume home medication for cardiomyopathy, / Pt is on amiodarone/coreg/ continue same, s/p AICD SSI insulin for glucose control DVT - Hep SQ Diet renal carb consistent, cardiac Full code Plan of care reviewed with the patient, all questions answered. Social History - Social History marital status: single occupational status: disabled - Tobacco smoking status: Current some day smoker - Alcohol alcohol intake frequency: holiday/special occasion only - Substance use substance use type: amphetamines
[2018-08-05] MEDS ORDERED: DEXTROSE 31 GM ORAL.SUSP PO PRN (16:02)
[2018-08-05] MEDS ORDERED: DEXTROSE 50% 50 ML VIAL IV PRN (16:02)
[2018-08-05] MEDS: BUMETANIDE 0.25 MG/ML VIAL IV SCH ×2 (17:15→23:55)
[2018-08-05] MEDS: INSULIN LISPRO 1 UNIT/0.01 ML UNIT SQ SCH ×2 (17:25→20:54)
[2018-08-05 18:14] LABS: Basophils # (Auto) 0 K/mcL (0.0-0.3); Basophils % (Auto) 0 % (0.0-2.0); Eosinophils # (Auto) 0 K/mcL (0.0-0.7); Eosinophils % (Auto) 0 % (0.0-7.0); Granulocytes % (Auto) 91.6 % (38.0-78.0); Lymphocytes # (Auto) 0.5 K/mcL (1.5-4.8); Lymphocytes % (Auto) 5.6 % (15.5-49.0); Mean Cell Volume 98.7 fL (80.0-100.0); Mean Corpuscular HGB Conc 32.8 g/dL (31.0-36.0); Mean Corpuscular Hemoglobin 32.4 pg (26.0-34.0); Monocytes # (Auto) 0.2 K/mcL (0.1-0.9); Monocytes % (Auto) 2.8 % (1.0-12.0); Platelet Count 186 K/mcL (140-440); RBC 4.62 M/mcL (4.50-5.90); Red Cell Distribution Width 15.7 % (11.5-14.5)
[2018-08-05 18:33] LABS: ALT/SGPT 12 U/l (0-40); Albumin 3.4 gm/dL (3.2-5.2); Alkaline Phosphatase 81 U/L (39-117); Bilirubin,Direct 0.3 mg/dL (0.0-0.3); Blood Urea Nitrogen 50 mg/dl (6-20); Gamma Glutamyl Transpeptidase 61 U/L (8-61); Uric Acid 11.6 mg/dL (2.5-8.0)
[2018-08-05] MEDS: 0.9 % SODIUM CHLORIDE 10 ML SYRINGE IV SCH (20:53)
[2018-08-05] MEDS: HEPARIN 5,000 UNIT/ML VIAL SQ SCH (20:54)
[2018-08-06] MEDS: IPRATROPIUM/ALBUTEROL 3 ML AMPUL.NEB NEB SCH ×6 (02:55→22:02)
[2018-08-06] MEDS: 0.9 % SODIUM CHLORIDE 10 ML SYRINGE IV SCH ×3 (05:39→20:32)
[2018-08-06 06:54] LABS: Basophils # (Auto) 0 K/mcL (0.0-0.3); Basophils % (Auto) 0 % (0.0-2.0); Eosinophils # (Auto) 0 K/mcL (0.0-0.7); Eosinophils % (Auto) 0 % (0.0-7.0); Granulocytes % (Auto) 87.8 % (38.0-78.0); Lymphocytes # (Auto) 0.5 K/mcL (1.5-4.8); Lymphocytes % (Auto) 5.6 % (15.5-49.0); Mean Cell Volume 100.9 fL (80.0-100.0); Mean Corpuscular HGB Conc 32.4 g/dL (31.0-36.0); Mean Corpuscular Hemoglobin 32.7 pg (26.0-34.0); Monocytes # (Auto) 0.6 K/mcL (0.1-0.9); Monocytes % (Auto) 6.6 % (1.0-12.0); Platelet Count 173 K/mcL (140-440); Red Cell Distribution Width 15.6 % (11.5-14.5)
[2018-08-06 07:10] LABS: ALT/SGPT 11 U/l (0-40); Albumin 3.2 gm/dL (3.2-5.2); Albumin/Globulin Ratio 1.1 (1.0-2.3); Alkaline Phosphatase 73 U/L (39-117); Bilirubin,Direct < 0.2 mg/dL (0.0-0.3); Blood Urea Nitrogen 55 mg/dl (6-20); Gamma Glutamyl Transpeptidase 52 U/L (8-61); Uric Acid 12.5 mg/dL (2.5-8.0)
--- NOTE | 2018-08-06 07:16 | Nephrology Consult Note ---
History of Present Illness - Reason for Consult Patient information: Note initiated : 08/06/18 at 7:12 am Ac Ponce is a 53-year-old male admitted on 08/05/18. Consult date: 08/06/18 chronic renal failure Requesting physician: Lauren Torres - Chief Complaint Shortness of Breath - History of Present Illness Ac Ponce is a 53-year-old male with chronic combined systolic and diastolic heart failure (Echo on 03/28/18: LVEF 15%, severe global hypokinesis, pulmonary hypertension, Grade III diastolic dysfunction), chronic obstructive pulmonary disease, chronic kidney disease stage 4, admitted on 08/05/[address] Ogden in the office. Review of Systems Constitutional: weakness, no fever(s) Nose, mouth and throat: no nasal congestion, no sore throat Cardiovascular: no chest pain, no palpatations Respiratory: cough, dyspnea, wheezing Gastrointestinal: no abdominal pain, no nausea Genitourinary: no dysuria, no hematuria Musculoskeletal: no back pain, no neck pain Integumentary: no rash, no wounds Neurological: no confusion, no focal weakness Psychiatric: no anxiety, no panic attacks Endocrine: no cold intolerance, no heat intolerance Hematologic/Lymphatic: no easy bleeding, no easy bruising Allergic/Immunologic: no tongue swelling, no uticaria Past History Past medical history: Medical History (Last Reviewed 08/05/18 @ 09:47 by Radha Ogden MD) CKD (chronic kidney disease), stage III (Chronic) History of methamphetamine use (Chronic) Cardiomyopathy (Chronic) Diabetes mellitus, type II (Chronic) Hypertension (Chronic) Congestive heart failure (Chronic) Chronic renal failure, stage 4 (severe) (Chronic) Acute on chronic renal failure (Chronic) Past surgical history: Past Surgical History (Last Reviewed 08/05/18 @ 09:47 by Radha Ogden MD) History of implantable cardioverter-defibrillator (ICD) placement (Chronic ~2014 ) Past family history: Family History (Last Reviewed 08/05/18 @ 09:47 by Radha Ogden MD) Father Diabetes Mother Hypertension Brother Alcoholism Sister Diabetes Grandmother Cancer Past social history: Social History (Last Updated 08/05/18 @ 14:45 by Radha Ogden MD) No Social History Section defined Medications and Allergies Home Medications Medication Instructions Recorded Confirmed Type Amiodarone HCl [Cordarone] 200 mg PO DAILY 03/27/18 08/05/18 History Aspirin [Aspirin EC] 81 mg PO DAILY 03/27/18 08/05/18 History Colchicine [Colcrys] 0.6 mg PO DAILYP PRN 03/27/18 08/05/18 History Febuxostat [Uloric] 40 mg PO DAILY 03/27/18 08/05/18 History Fluticasone Hfa 220Mcg [Flovent 1 puff INH QDAY 03/27/18 08/05/18 History Hfa 220Mcg] Simvastatin [Zocor] 10 mg PO HS 03/27/18 08/05/18 History Tamsulosin HCl [Flomax] 0.4 mg PO DAILY 03/27/18 08/05/18 History ipratropium-albuterol 0.5 mg-3 3 ml INHALATION Q8H PRN #90 ml 06/21/18 08/05/18 Rx mg(2.5 mg base)/3 mL nebulization soln sodium bicarbonate 325 mg tablet 325 mg PO BID #60 tab 07/07/18 08/05/18 Rx Carvedilol [Coreg] 6.25 mg PO BID 07/13/18 08/05/18 History Ipratropium/Albuterol Sulfate 1 puff INH QDAY 07/13/18 08/05/18 History [Combivent] bumetanide 1 mg tablet 1 mg PO BID tab 08/05/18 08/05/18 History doxycycline hyclate 100 mg tablet 100 mg PO BID 08/05/18 08/05/18 History predniSONE [Prednisone] 20 mg PO DAILY #23 tab 08/05/18 08/05/18 Rx Allergies Allergy/AdvReac Type Severity Reaction Status Date / Time No Known Drug Allergies Allergy Verified 07/19/18 14:41 Exam - Vital Signs Vital signs: Temp Pulse Resp BP Pulse Ox 97.2 F 76 20 107/70 91 08/06/18 04:00 08/06/18 07:07 08/06/18 07:07 08/06/18 04:00 08/06/18 07:07 - General Appearance General appearance: appears started age, fatigue EENT: mucous membranes dry Neck: supple Respiratory: wheezing, course breath sounds Cardiology: no edema, regular rate Gastrointestinal: no tenderness Integumentary: no rash, warm and dry Neurologic: no focal deficit, alert and oriented x3 Musculoskeletal: no deformities Psychiatric: mood/affect appropriate, cooperative Results - Lab Results 08/06/18 03:30 08/06/18 03:30 Most recent lab results Calcium 8.8 mg/dl (8.6-10.4) 08/06/18 03:30 Phosphorus 2.9 mg/dL (2.7-4.5) 08/06/18 03:30 Magnesium 1.7 mg/dL (1.6-2.5) 08/06/18 03:30 Assessment and Plan (1) Chronic renal failure, stage 4 (severe) Ac Ponce is a 53-year-old male with chronic combined systolic and diastolic heart failure (Echo on 03/28/18: LVEF 15%, severe global hypokinesis, pulmonary hypertension, Grade III diastolic dysfunction), chronic obstructive pulmonary disease, chronic kidney disease stage 4, admitted on 08/05/18 (direct) for fluid overload after seen by Dr. Ogden in the office. Chronic kidney disease stage 4. Previous work up: Urinalysis on 06/07/18: Straw, Clear, pH 6.0, SG 1.010, protein negative, occult blood negative, leukocyte esterase negative. Urine random total protein/creatinine on 06/07/18: 120 mg/g creatinine. Renal US on 03/28/18: Mildly atrophic right kidney. No hydronephrosis. Pre Void bladder volume measures 115 mL. Post Void bladder volume measures 66 mL. Work up: CXR on 08/04/18: Severe cardiomegaly and findings consistent with congestive heart failure. No focal consolidation Progress: Urine output: 900 ml reported in the past 10 hours. Creatinine increased from 3.1 to 3.7 in the past 10 hours. No obvious uremic symptoms. Plan: Avoid NSAIDs, nephrotoxic medications and IV contrast. Monitor BMP and urine output. Status: Chronic Priority: Medium
[2018-08-06] MEDS ORDERED: METOLAZONE 2.5 MG TABLET PO ONE (07:17)
[2018-08-06] MEDS: INSULIN LISPRO 1 UNIT/0.01 ML UNIT SQ SCH ×4 (07:42→20:32)
--- NOTE | 2018-08-06 08:03 | XRay Report ---
INDICATION: Congestive heart failure TECHNIQUE: AP chest x-ray, portable COMPARISON: 08/04/2018, 04/18/2018, 03/28/2018 FINDINGS: No change in left transvenous pacemaker position. There is severe cardiomegaly. Pulmonary vascularity is prominent and there is peribronchial thickening. Appearance remains consistent with interstitial pulmonary edema but may be slightly improved. No new abnormalities. No focal consolidation. Continued follow-up recommended. IMPRESSION: 1. Persistent cardiomegaly 2. Probable mild interstitial edema. This is improved Interpreted and Authenticated by: Sameer Hall 08/06/18
[2018-08-06] MEDS: HEPARIN 5,000 UNIT/ML VIAL SQ SCH ×2 (09:10→20:31)
[2018-08-06] MEDS: BUMETANIDE 0.25 MG/ML VIAL IV SCH ×2 (09:20→20:30)
--- NOTE | 2018-08-06 12:03 | Internal Med Progress Note ---
Medical - PN: Subj Patient information: Note initiated : 08/06/18 at 12:01 pm Service Date, if different from initiated Date: [] Patient: Ac Ponce a 53 y/o M admitted on 08/05/18 for CHF. Chief Complaint: [] Interval history: Mr. Ponce is a 53 year old M with history of congestive heart failure, last ejection fraction 15% in March 2018, pulmonary hypertension, COPD, chronic kidney disease. The patient was in the nephrology clinic where he presented for follow-up for shortness of breath. His chest x-ray was suggestive of congestive heart failure, the patient was advised to be admitted to the hospital for further management. According to the patient the patient was at his baseline status up until a few days ago, he then had a URI-viral syndrome, with subjective sensations of chills fever which was getting better. Last night he noticed that he was suddenly very short of breath, unable to move around much. The patient was seen in the emergency room last night, he was treated medically with IV steroids antibiotics nebulizers and Lasix. The patient was not admitted to the hospital as there was no bed available at this facility and according to the patient no bed available at [facility]. The patient did not want to go to [facility]. The patient therefore was discharged home with follow-up with nephrology the patient when seen today this morning was still significantly short of breath and was therefore admitted to the hospital for further management. Patient still smokes 1-2 cigarettes a month, he notes he has been taking his medications as prescribed Patient wishes to be full code Labs done in the ER show a normal WBC count at 7.7, hemoglobin 15, platelets 206 , lactic acid 1.7, sodium 141, potassium 3.7 bicarbonate 24 creatinine 3.5 glucose 162 troponin 0 0.04, BNP more than 70,000. Chest x-ray shows cardiomegaly and congestive heart failure 08/06 Patient seen and examined, no acute overnight events. Sitting comfortably in the chair tolerating p.o. diet well. Labs show creatinine stable. Chest x-ray still shows some CHF. He is on IV Bumex. 1 dose of metolazone to be given today monitor urine output. Appreciate nephrology input. Continue with steroids and duo nebs for COPD exacerbation Pertinent ROS: Denies headache, dizziness Denies chest pain, palpitations improving cough and shortness of breath Denies abdominal pain, nausea or vomiting. - Constitutional Vitals: Vital Signs Temp Pulse Resp BP Pulse Ox 97.2 F 70 18 112/84 97 08/06/18 07:50 08/06/18 10:35 08/06/18 10:35 08/06/18 07:50 08/06/18 07:50 Period Temp Pulse Resp BP Sys/Altman Pulse Ox Last 24 Hr 97.1 F-98.7 F 57-79 16-22 107-122/70-89 91-100 Intake and Output 08/05/18 08/06/18 08/06/18 21:59 05:59 13:59 Intake Total 360 / 360 300 / 300 Output Total 250 / 250 900 / 900 Balance 110 / 110 -600 / -600 Weight 208 lb Intake & Output: Intake & Output 08/05/18 08/06/18 08/06/18 21:59 05:59 13:59 Intake Total 360 / 360 300 / 300 Output Total 250 / 250 900 / 900 Balance 110 / 110 -600 / -600 Weight 208 lb Intake: Oral 360 / 360 300 / 300 Output: Urine Catheter Amount 900 / 900 Void Amount 250 / 250 Other: Meal Dinner Percent of Meal Consumed 100% Feeding Ability Independent Urine Appearance Clear Uretheral (Castillo) Clear Urine Color Bright Yellow Uretheral (Castillo) Bright Yellow Exam: Constitutional; Afebrile, cooperative, alert, not in distress. Respiratory system: Air Entry equal on both sides, air entry improved from yesterday, still has bilateral wheezing but much better compared to yesterday CVS- Rate rhythm regular, S1,S2 heard, no gallop, no rub. 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 Medical - PN: Obj Da - Labs CBC & Chem 7: 08/06/18 03:30 08/06/18 03:30 Labs: Abnormal Lab Results 08/06/18 08/06/18 08/05/18 03:30 03:30 17:30 RBC 4.40 L MCV 100.9 H RDW 15.6 H Gran % 87.8 H Lymph % (Auto) 5.6 L Lymph # (Auto) 0.5 L Anion Gap 18.0 H BUN 55 H 50 H Creatinine 3.7 H 3.1 H Glucose 140 H 116 H Uric Acid 12.5 H 11.6 H Lactate Dehydrogenase 359 H 291 H 08/05/18 17:30 RBC MCV RDW 15.7 H Gran % 91.6 H Lymph % (Auto) 5.6 L Lymph # (Auto) 0.5 L Anion Gap BUN Creatinine Glucose Uric Acid Lactate Dehydrogenase Meds: Medications Acetaminophen (Tylenol) 650 mg PO Q6HP PRN PRN Reason: PAIN/FEVER > 101 Albuterol/Ipratropium (Duoneb) 3 ml NEB Q4HRT [facility] Last Admin: 08/06/18 10:31 Dose: 3 ml Dextrose (Dextrose 50%) 0 ml IV UD PRN PRN Reason: Hypoglycemia Diagnostic Test (Pha) (Accu-Chek) [address] [facility] Last Admin: 08/06/18 07:41 Dose: 1 each Glucose (Insta-Glucose) 15 gm PO PRN PRN PRN Reason: Hypoglycemia Heparin Sodium (Porcine) (Heparin) 5,000 unit SQ Q12 [facility] Last Admin: 08/05/18 20:54 Dose: 5,000 unit Insulin Human Lispro (Humalog) [address] [facility]; Protocol Last Admin: 08/06/18 07:42 Dose: Not Given Levofloxacin (Levaquin) 250 mg PO Q48H [facility] Last Admin: 08/05/18 17:14 Dose: 250 mg Naloxone HCl (Narcan) 0.1 mg IV Q2MIN PRN PRN Reason: Opiate Reversal Ondansetron HCl (Zofran) 4 mg IV Q4HP PRN PRN Reason: Nausea And Vomiting Sodium Chloride (Saline Flush) 10 ml IV Q8 [facility] Last Admin: 08/06/18 05:39 Dose: 10 ml Medical - PN: A/P - Time Spent With Patient Total time spent is greater than 50% in coordination of care (as documented) at patient's floor/unit and/or counseling patient: - Narrative A/P Narrative: A/P Acute copd exacerbation Acute on chronic systolic heart failure Chronic Renal failure, Creat at baseline Cardiomyopathy h/o Polysubstance use Diabetes mellitus HTN HLD Plan continue to monitor on tele IV bumex bid 1mg for now, watch urine output, metolozone 5mg today in AM continue PO Prednisone 40mg daily, levofloxacin 250mg q48hrs per renal dosing, no pna on Chest x ray , duonebs q4hrs Resume home medication for cardiomyopathy, / Pt is on amiodarone/coreg/ continue same, s/p AICD SSI insulin for glucose control DVT - Hep SQ Diet renal carb consistent, cardiac Full code Medical - PN: Qual - VTE Deep Vein Thrombosis/Pulmonary Embolism Present on Admission: No
[2018-08-06] MEDS: AMIODARONE HCL 200 MG TABLET PO SCH (13:03)
[2018-08-06] MEDS: CARVEDILOL 6.25 MG TABLET PO SCH (17:16)
[2018-08-06] MEDS: FLUTICASONE HFA 220MCG INHALER INH SCH (20:31)
[2018-08-06] MEDS: guaiFENesin/DEXTROMETHORPHAN ORAL SOL PO PRN (23:00)
[2018-08-07] MEDS: IPRATROPIUM/ALBUTEROL 3 ML AMPUL.NEB NEB SCH ×7 (03:12→23:25)
[2018-08-07] MEDS: 0.9 % SODIUM CHLORIDE 10 ML SYRINGE IV SCH ×4 (05:32→20:36)
[2018-08-07 06:21] LABS: Basophils # (Auto) 0 K/mcL (0.0-0.3); Basophils % (Auto) 0 % (0.0-2.0); Eosinophils # (Auto) 0 K/mcL (0.0-0.7); Eosinophils % (Auto) 0.1 % (0.0-7.0); Granulocytes % (Auto) 84.5 % (38.0-78.0); Lymphocytes # (Auto) 0.8 K/mcL (1.5-4.8); Lymphocytes % (Auto) 7.7 % (15.5-49.0); Mean Corpuscular HGB Conc 32.1 g/dL (31.0-36.0); Mean Corpuscular Hemoglobin 32.1 pg (26.0-34.0); Monocytes # (Auto) 0.8 K/mcL (0.1-0.9); Monocytes % (Auto) 7.7 % (1.0-12.0); Platelet Count 176 K/mcL (140-440); RBC 4.77 M/mcL (4.50-5.90); Red Cell Distribution Width 15.7 % (11.5-14.5)
[2018-08-07 06:29] LABS: ALT/SGPT 12 U/l (0-40); Albumin 3.4 gm/dL (3.2-5.2); Alkaline Phosphatase 90 U/L (39-117); Bilirubin,Direct 0.2 mg/dL (0.0-0.3); Blood Urea Nitrogen 65 mg/dl (6-20); Gamma Glutamyl Transpeptidase 61 U/L (8-61); Uric Acid 13.6 mg/dL (2.5-8.0)
--- NOTE | 2018-08-07 07:10 | Nephrology Progress Note ---
Subjective Patient information: Note initiated : 08/07/18 at 7:08 am Ac Ponce is a 53-year-old male admitted on 08/05/18. Chief Complaint: Shortness of Breath Principal diagnosis: Chronic kidney disease stage 4 Pertinent ROS: Feeling better Weakness Nasal congestion Shortness of breath Wheezing and cough No edema No chest pain No abdominal pain Objective - Vital Signs Vital signs: Vital Signs Temp Pulse Pulse Resp BP Pulse Ox 08/07/18 03:30 97.8 F 20 95/84 97 08/07/18 00:00 98.1 F 20 110/81 98 08/06/18 22:23 69 20 08/06/18 20:00 97.2 F 20 115/82 98 08/06/18 19:32 66 18 96 08/06/18 16:00 98.1 F 16 94 08/06/18 15:34 67 16 08/06/18 12:00 98.8 F 74 16 126/76 97 08/06/18 10:35 70 18 08/06/18 07:50 97.2 F 20 112/84 97 Intake and Output 08/06/18 08/07/18 08/07/18 21:59 05:59 13:59 Intake Total 240 / 240 280 / 280 Output Total 1400 / 1400 1874 Balance -1160 / -1160 -1595 / -1595 Intake: Oral 240 / 240 280 / 280 Output: Urine Catheter Amount 1400 / 1400 1874 Other: Meal Dinner Percent of Meal Consumed 100% Urine Appearance Clear Uretheral (Castillo) Clear Urine Color Dark Yellow Uretheral (Castillo) Bright Yellow Weight 205 lb 3.2 oz Intake & Output: Intake & Output 08/06/18 08/07/18 08/07/18 21:59 05:59 13:59 Intake Total 240 / 240 280 / 280 Output Total 1400 / 1400 1874 Balance -1160 / -1160 -1595 / -1595 Weight 205 lb 3.2 oz Intake: Oral 240 / 240 280 / 280 Output: Urine Catheter Amount 1400 / 1400 1874 Other: Meal Dinner Percent of Meal Consumed 100% Urine Appearance Clear Uretheral (Castillo) Clear Urine Color Dark Yellow Uretheral (Castillo) Bright Yellow - General Appearance General appearance: chronically ill, fatigue EENT: mucous membranes dry Neck: supple Respiratory: wheezing Cardiology: no edema Gastrointestinal: no tenderness Integumentary: warm and dry Neurologic: no focal deficit, alert and oriented x3 Musculoskeletal: no deformities Psychiatric: mood/affect appropriate, cooperative - Lab 08/07/18 03:50 08/07/18 03:50 Most recent lab results Calcium 9.1 mg/dl (8.6-10.4) 08/07/18 03:50 Phosphorus 2.5 mg/dL (2.7-4.5) L 08/07/18 03:50 Magnesium 1.7 mg/dL (1.6-2.5) 08/07/18 03:50 Assessment and Plan (1) Chronic renal failure, stage 4 (severe) Ac Ponce is a 53-year-old male with chronic combined systolic and diastolic heart failure (Echo on 03/28/18: LVEF 15%, severe global hypokinesis, pulmonary hypertension, Grade III diastolic dysfunction), chronic obstructive pulmonary disease, chronic kidney disease stage 4, admitted on 08/05/18 (direct) for fluid overload after seen by Dr. Ogden in the office. Chronic kidney disease stage 4. Previous work up: Urinalysis on 06/07/18: Straw, Clear, pH 6.0, SG 1.010, protein negative, occult blood negative, leukocyte esterase negative. Urine random total protein/creatinine on 06/07/18: 120 mg/g creatinine. Renal US on 03/28/18: Mildly atrophic right kidney. No hydronephrosis. Pre Void bladder volume measures 115 mL. Post Void bladder volume measures 66 mL. Work up: CXR on 08/04/18: Severe cardiomegaly and findings consistent with congestive heart failure. No focal consolidation Progress: Urine output: 3275 ml reported in the past 24 hours. Creatinine increased from 3.7 to 3.8 in the past 24 hours. No obvious uremic symptoms. Plan: Avoid NSAIDs, nephrotoxic medications and IV contrast. Monitor BMP and urine output. Status: Chronic Priority: Medium
[2018-08-07] MEDS: BUMETANIDE 0.25 MG/ML VIAL IV SCH ×2 (08:23→20:31)
[2018-08-07] MEDS: AMIODARONE HCL 200 MG TABLET PO SCH (08:24)
[2018-08-07] MEDS: guaiFENesin/DEXTROMETHORPHAN ORAL SOL PO PRN ×2 (08:24→20:26)
[2018-08-07] MEDS: HEPARIN 5,000 UNIT/ML VIAL SQ SCH ×2 (08:24→20:17)
[2018-08-07] MEDS: CARVEDILOL 6.25 MG TABLET PO SCH ×2 (08:24→18:02)
[2018-08-07] MEDS: INSULIN LISPRO 1 UNIT/0.01 ML UNIT SQ SCH ×4 (08:34→20:30)
[2018-08-07] MEDS ORDERED: ALLOPURINOL 100 MG TABLET PO SCH (09:00)
[2018-08-07] MEDS ORDERED: TAMSULOSIN 0.4 MG CAPSULE PO SCH (09:00)
[2018-08-07] MEDS ORDERED: ASPIRIN 81 MG TAB.CHEW PO SCH (09:00)
[2018-08-07] MEDS: FLUTICASONE HFA 220MCG INHALER INH SCH ×2 (09:41→23:43)
[2018-08-07] MEDS ORDERED: POTASSIUM CHLORIDE 20 MEQ PACKET PO ONE (10:19)
[2018-08-07] MEDS ORDERED: DEXTROSE 50% 50 ML VIAL IV PRN (11:32)
[2018-08-07] MEDS ORDERED: guaiFENesin/DEXTROMETHORPHAN ORAL SOL PO PRN (11:32)
[2018-08-07] MEDS ORDERED: NALOXONE HCL 0.4 MG/ML VIAL IV PRN (11:32)
[2018-08-07] MEDS ORDERED: ACETAMINOPHEN 325 MG TABLET PO PRN (11:32)
[2018-08-07] MEDS ORDERED: ONDANSETRON 4 MG/2 ML VIAL IV PRN (11:32)
[2018-08-07] MEDS ORDERED: DEXTROSE 31 GM ORAL.SUSP PO PRN (11:32)
--- NOTE | 2018-08-07 13:08 | Internal Med Progress Note ---
Medical - PN: Subj Patient information: Note initiated : 08/07/18 at 1:06 pm Service Date, if different from initiated Date: [] Patient: Ac Ponce a 53 y/o M admitted on 08/05/18 for CHF. Chief Complaint: [] Interval history: Mr. Ponce is a 53 year old M with history of congestive heart failure, last ejection fraction 15% in March 2018, pulmonary hypertension, COPD, chronic kidney disease. The patient was in the nephrology clinic where he presented for follow-up for shortness of breath. His chest x-ray was suggestive of congestive heart failure, the patient was advised to be admitted to the hospital for further management. According to the patient the patient was at his baseline status up until a few days ago, he then had a URI-viral syndrome, with subjective sensations of chills fever which was getting better. Last night he noticed that he was suddenly very short of breath, unable to move around much. The patient was seen in the emergency room last night, he was treated medically with IV steroids antibiotics nebulizers and Lasix. The patient was not admitted to the hospital as there was no bed available at this facility and according to the patient no bed available at [facility]. The patient did not want to go to [facility]. The patient therefore was discharged home with follow-up with nephrology the patient when seen today this morning was still significantly short of breath and was therefore admitted to the hospital for further management. Patient still smokes 1-2 cigarettes a month, he notes he has been taking his medications as prescribed Patient wishes to be full code Labs done in the ER show a normal WBC count at 7.7, hemoglobin 15, platelets 206 , lactic acid 1.7, sodium 141, potassium 3.7 bicarbonate 24 creatinine 3.5 glucose 162 troponin 0 0.04, BNP more than 70,000. Chest x-ray shows cardiomegaly and congestive heart failure 08/06 Patient seen and examined, no acute overnight events. Sitting comfortably in the chair tolerating p.o. diet well. Labs show creatinine stable. Chest x-ray still shows some CHF. He is on IV Bumex. 1 dose of metolazone to be given today monitor urine output. Appreciate nephrology input. Continue with steroids and duo nebs for COPD exacerbation 08/07 Pt seen examined, doing well, diuresed well yesterday, A bit short of breath after shower today otherwise no issues Pertinent ROS: Denies headache, dizziness Denies chest pain, palpitations Denies cough or shortness of breath (much improved from admission) Denies abdominal pain, nausea or vomiting. - Constitutional Vitals: Vital Signs Temp Pulse Resp BP Pulse Ox 97.9 F 66 18 122/86 96 08/07/18 08:00 08/07/18 11:48 08/07/18 11:48 08/07/18 08:00 08/07/18 08:00 Period Temp Pulse Resp BP Sys/Altman Pulse Ox Last 24 Hr 97.2 F-98.1 F 65-69 16-22 95-122/81-86 94-98 Intake and Output 08/06/18 08/07/18 08/07/18 21:59 05:59 13:59 Intake Total 240 / 240 280 / 280 900 / 900 Output Total 1400 / 1400 1875 / 1875 600 / 600 Balance -1160 / -1160 -1595 / -1595 300 / 300 Weight 205 lb 3.2 oz Intake & Output: Intake & Output 08/06/18 08/07/18 08/07/18 21:59 05:59 13:59 Intake Total 240 / 240 280 / 280 900 / 900 Output Total 1400 / 1400 1875 / 1875 600 / 600 Balance -1160 / -1160 -1595 / -1595 300 / 300 Weight 205 lb 3.2 oz Intake: Oral 240 / 240 280 / 280 900 / 900 Output: Urine Catheter Amount 1400 / 1400 1875 / 1875 600 / 600 Other: Meal Dinner Breakfast Percent of Meal Consumed 100% 50% Feeding Ability Independent Urine Appearance Clear Clear Uretheral (Castillo) Clear Urine Color Dark Yellow Brown Uretheral (Castillo) Bright Yellow Stool Size Moderate Stool Consistency Formed Exam: Constitutional; Afebrile, cooperative, alert, not in distress. Respiratory system: Air Entry equal on both sides, No crackles or wheezing, no rhonchi. prolonged exp phase noted, air entry much better from admission. CVS- Rate rhythm regular, S1,S2 heard, no gallop, no rub. 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 Medical - PN: Obj Da - Labs CBC & Chem 7: 08/07/18 03:50 08/07/18 03:50 Labs: Abnormal Lab Results 08/07/18 08/07/18 08/06/18 03:50 03:50 03:30 RBC MCV RDW 15.7 H Gran % 84.5 H Lymph % (Auto) 7.7 L Gran # 8.6 H Lymph # (Auto) 0.8 L Anion Gap 18.0 H 18.0 H BUN 65 H 55 H Creatinine 3.8 H 3.7 H Glucose 115 H 140 H Uric Acid 13.6 H 12.5 H Phosphorus 2.5 L Lactate Dehydrogenase 316 H 359 H 08/06/18 08/05/18 08/05/18 03:30 17:30 17:30 RBC 4.40 L MCV 100.9 H RDW 15.6 H 15.7 H Gran % 87.8 H 91.6 H Lymph % (Auto) 5.6 L 5.6 L Gran # Lymph # (Auto) 0.5 L 0.5 L Anion Gap BUN 50 H Creatinine 3.1 H Glucose 116 H Uric Acid 11.6 H Phosphorus Lactate Dehydrogenase 291 H Meds: Medications Acetaminophen (Tylenol) 650 mg PO Q6HP PRN PRN Reason: PAIN/FEVER > 101 Albuterol/Ipratropium (Duoneb) 3 ml NEB Q4HRT [facility] Last Admin: 08/07/18 11:47 Dose: 3 ml Allopurinol (Zyloprim) 100 mg PO DAILY [facility] Amiodarone HCl (Cordarone) 200 mg PO DAILY [facility] Aspirin (Aspirin) 81 mg PO DAILY [facility] Bumetanide (Bumex) 1 mg IV Q12H [facility] Carvedilol (Coreg) 6.25 mg PO BIDCC [facility] Dextrose (Dextrose 50%) 0 ml IV UD PRN PRN Reason: Hypoglycemia Diagnostic Test (Pha) (Accu-Chek) 1 each FS [facility] Fluticasone Propionate (Flovent Hfa 220mcg) 1 puff INH BID [facility] Glucose (Insta-Glucose) 15 gm PO PRN PRN PRN Reason: Hypoglycemia Guaifenesin (Robitussin Dm) 10 ml PO Q4HP PRN PRN Reason: Cough Heparin Sodium (Porcine) (Heparin) 5,000 unit SQ Q12 [facility] Insulin Human Lispro (Humalog) 0 unit SQ [facility]; Protocol Levofloxacin (Levaquin) 250 mg PO Q48H [facility] Metolazone (Zaroxolyn) 2.5 mg PO Q48@0900 [facility] Naloxone HCl (Narcan) 0.1 mg IV Q2MIN PRN PRN Reason: Opiate Reversal Ondansetron HCl (Zofran) 4 mg IV Q4HP PRN PRN Reason: Nausea And Vomiting Sodium Chloride (Saline Flush) 10 ml IV Q8 [facility] Tamsulosin HCl (Flomax) 0.4 mg PO DAILY [facility] Medical - PN: A/P - Time Spent With Patient Total time spent is greater than 50% in coordination of care (as documented) at patient's floor/unit and/or counseling patient: - Narrative A/P Narrative: A/P Acute copd exacerbation Acute on chronic systolic heart failure Chronic Renal failure, Creat at baseline Cardiomyopathy h/o Polysubstance use Diabetes mellitus HTN HLD Plan continue to monitor on tele IV bumex bid 1mg for now, watch urine output, continue PO Prednisone 40mg daily, levofloxacin 250mg q48hrs per renal dosing, no pna on Chest x ray , duonebs q4hrs Resume home medication for cardiomyopathy, / Pt is on amiodarone/coreg/ continue same, s/p AICD SSI insulin for glucose control DVT - Hep SQ Diet renal carb consistent, cardiac Full code Xfer to med surg status anticipate d/c home in AM if remains stable Medical - PN: Qual - VTE Deep Vein Thrombosis/Pulmonary Embolism Present on Admission: No
[2018-08-07] MEDS ORDERED: LEVOFLOXACIN 500 MG TABLET PO SCH (15:00)
[2018-08-07] MEDS: predniSONE 20 MG TABLET PO SCH (18:02)
[2018-08-08] MEDS: IPRATROPIUM/ALBUTEROL 3 ML AMPUL.NEB NEB SCH ×3 (03:01→11:39)
[2018-08-08] MEDS: guaiFENesin/DEXTROMETHORPHAN ORAL SOL PO PRN (03:15)
[2018-08-08] MEDS: 0.9 % SODIUM CHLORIDE 10 ML SYRINGE IV SCH (04:59)
[2018-08-08 05:18] LABS: Basophils # (Auto) 0 K/mcL (0.0-0.3); Basophils % (Auto) 0 % (0.0-2.0); Eosinophils # (Auto) 0 K/mcL (0.0-0.7); Eosinophils % (Auto) 0 % (0.0-7.0); Granulocytes % (Auto) 90.9 % (38.0-78.0); Lymphocytes # (Auto) 0.5 K/mcL (1.5-4.8); Mean Cell Volume 99.1 fL (80.0-100.0); Mean Corpuscular HGB Conc 32.9 g/dL (31.0-36.0); Mean Corpuscular Hemoglobin 32.6 pg (26.0-34.0); Monocytes # (Auto) 0.6 K/mcL (0.1-0.9); Monocytes % (Auto) 5.1 % (1.0-12.0); Platelet Count 177 K/mcL (140-440); RBC 5.24 M/mcL (4.50-5.90); Red Cell Distribution Width 15.7 % (11.5-14.5)
[2018-08-08 05:34] LABS: ALT/SGPT 12 U/l (0-40); Albumin 3.4 gm/dL (3.2-5.2); Albumin/Globulin Ratio 0.9 (1.0-2.3); Alkaline Phosphatase 89 U/L (39-117); Bilirubin,Direct 0.6 mg/dL (0.0-0.3); Blood Urea Nitrogen 68 mg/dl (6-20); Gamma Glutamyl Transpeptidase 87 U/L (8-61)
--- NOTE | 2018-08-08 07:23 | Nephrology Progress Note ---
Subjective Patient information: Note initiated : 08/08/18 at 7:21 am Ac Ponce is a 53-year-old male admitted on 08/05/18. Chief Complaint: Shortness of Breath Principal diagnosis: Chronic kidney disease stage 4 Pertinent ROS: Feeling better Weakness Nasal congestion Shortness of breath Wheezing and cough No chest pain No edema Objective - Vital Signs Vital signs: Vital Signs Temp Pulse Pulse Resp BP BP Pulse Ox 08/08/18 06:37 97.3 F 89 16 103/71 94 08/08/18 02:58 99 H 20 100/60 93 08/08/18 00:02 97.6 F 64 16 100/60 94 08/07/18 23:25 67 16 08/07/18 22:54 28 H 08/07/18 20:44 64 36 H 120/70 97 08/07/18 19:31 68 20 95 08/07/18 15:59 99.6 F H 22 105/79 96 08/07/18 15:07 64 18 08/07/18 12:39 69 18 118/86 97 08/07/18 11:48 66 18 08/07/18 08:00 97.9 F 65 20 122/86 96 08/07/18 07:25 67 18 Intake and Output 08/07/18 08/08/18 08/08/18 21:59 05:59 13:59 Intake Total 1200 / 1200 150 / 150 Output Total 2099 750 / 750 Balance -900 / -900 -600 / -600 Intake: Oral 1200 / 1200 150 / 150 Output: Urine Catheter Amount 2099 750 / 750 Other: Meal Lunch Percent of Meal Consumed 50% Feeding Ability Independent Urine Appearance Clear Uretheral (Castillo) Clear Urine Color Bright Yellow Bright Yellow Uretheral (Castillo) Bright Yellow Weight 205 lb Intake & Output: Intake & Output 08/07/18 08/08/18 08/08/18 21:59 05:59 13:59 Intake Total 1200 / 1200 150 / 150 Output Total 2099 750 / 750 Balance -900 / -900 -600 / -600 Weight 205 lb Intake: Oral 1200 / 1200 150 / 150 Output: Urine Catheter Amount 2099 750 / 750 Other: Meal Lunch Percent of Meal Consumed 50% Feeding Ability Independent Urine Appearance Clear Uretheral (Castillo) Clear Urine Color Bright Yellow Bright Yellow Uretheral (Castillo) Bright Yellow - General Appearance General appearance: chronically ill, fatigue EENT: mucous membranes dry Neck: supple Respiratory: wheezing Cardiology: no edema Gastrointestinal: no tenderness Integumentary: warm and dry Neurologic: no focal deficit, alert and oriented x3 Musculoskeletal: no deformities Psychiatric: mood/affect appropriate, cooperative - Lab 08/08/18 04:20 08/08/18 04:20 Most recent lab results Calcium 9.4 mg/dl (8.6-10.4) 08/08/18 04:20 Phosphorus 3.4 mg/dL (2.7-4.5) 08/08/18 04:20 Magnesium 1.9 mg/dL (1.6-2.5) 08/08/18 04:20 Assessment and Plan (1) Chronic renal failure, stage 4 (severe) Ac Ponce is a 53-year-old male with chronic combined systolic and diastolic heart failure (Echo on 03/28/18: LVEF 15%, severe global hypokinesis, pulmonary hypertension, Grade III diastolic dysfunction), chronic obstructive pulmonary disease, chronic kidney disease stage 4, admitted on 08/05/18 (direct) for fluid overload after seen by Dr. Ogden in the office. Chronic kidney disease stage 4. Previous work up: Urinalysis on 06/07/18: Straw, Clear, pH 6.0, SG 1.010, protein negative, occult blood negative, leukocyte esterase negative. Urine random total protein/creatinine on 06/07/18: 120 mg/g creatinine. Renal US on 03/28/18: Mildly atrophic right kidney. No hydronephrosis. Pre Void bladder volume measures 115 mL. Post Void bladder volume measures 66 mL. Work up: CXR on 08/04/18: Severe cardiomegaly and findings consistent with congestive heart failure. No focal consolidation Progress: Urine output: 3450 ml reported in the past 24 hours. Creatinine decreased from 3.8 to 3.4 in the past 24 hours. No obvious uremic symptoms. Plan: Avoid NSAIDs, nephrotoxic medications and IV contrast. Monitor BMP and urine output. Status: Chronic Priority: Medium
[2018-08-08] MEDS: INSULIN LISPRO 1 UNIT/0.01 ML UNIT SQ SCH ×2 (08:44→12:32)
[2018-08-08] MEDS: predniSONE 20 MG TABLET PO SCH (08:45)
[2018-08-08] MEDS: CARVEDILOL 6.25 MG TABLET PO SCH (08:46)
[2018-08-08] MEDS: FLUTICASONE HFA 220MCG INHALER INH SCH (08:47)
[2018-08-08] MEDS: HEPARIN 5,000 UNIT/ML VIAL SQ SCH (08:47)
[2018-08-08] MEDS ORDERED: TAMSULOSIN 0.4 MG CAPSULE PO SCH (09:00)
[2018-08-08] MEDS ORDERED: AMIODARONE HCL 200 MG TABLET PO SCH (09:00)
[2018-08-08] MEDS ORDERED: METOLAZONE 2.5 MG TABLET PO SCH ×2 (09:00)
[2018-08-08] MEDS ORDERED: ALLOPURINOL 100 MG TABLET PO SCH (09:00)
[2018-08-08] MEDS ORDERED: ASPIRIN 81 MG TAB.CHEW PO SCH (09:00)
[2018-08-08] MEDS: BUMETANIDE 0.25 MG/ML VIAL IV SCH (09:45)
[2018-08-08 10:08] LABS: ALT/SGPT 13 U/l (0-40); Albumin 3.5 gm/dL (3.2-5.2); Alkaline Phosphatase 86 U/L (39-117); Bilirubin,Direct 0.5 mg/dL (0.0-0.3)
[2018-08-08 10:29] LABS: Haptoglobin 288 mg/dl (30-200)
--- NOTE | 2018-08-08 10:30 | Discharge Summary ---
Medical - DS: Prov Patient information: Note initiated : 08/08/18 at 10:26 am Service Date, if different from initiated Date: [] Patient: Ac Ponce 53 y/o M admitted on 08/05/18 for CHF. Chief Complaint: [] Date of admission: 08/05/18 15:47 Discharge date: 08/08/18 Primary care physician: Berto Vega DO Consults: 08/05/18 15:56 Consult to Physician [CONS] Routine Comment: Renal failure Consulting Provider: Lamin Potts Reason For Exam: Physician to Consult Discharging clinician: Lauren Torres Medical - DS: Meds - Discharge Medications Prescriptions: Levofloxacin [Levaquin] 250 mg PO Q48H #2 tab predniSONE [Prednisone] 40 mg PO QAMCC #6 tab Active and Home Medications: Home Medications Amiodarone HCl [Cordarone] 200 mg PO DAILY 03/27/18 [History Confirmed 08/06/18 Last Taken 07/13/18 10:00 200 mcg] Aspirin [Aspirin EC] 81 mg PO DAILY 03/27/18 [History Confirmed 08/05/18 Last Taken 07/13/18 10:00] Fluticasone Hfa 220Mcg [Flovent Hfa 220Mcg] 1 puff INH BID 03/27/18 [History Confirmed 08/06/18 Last Taken Unknown] Tamsulosin HCl [Flomax] 0.4 mg PO DAILY 03/27/18 [History Confirmed 08/06/18 Last Taken 07/13/18 10:00] Carvedilol [Coreg] 6.25 mg PO BIDCC 07/13/18 [History Confirmed 08/06/18 Last Taken 07/13/18 10:00] Ipratropium/Albuterol Sulfate [Combivent] 1 puff INH Q6H 07/13/18 [History Confirmed 08/06/18 Last Taken 07/13/18 10:00] bumetanide 1 mg tablet 1 mg PO BID tab 08/05/18 [History Confirmed 08/06/18 Last Taken Unknown] doxycycline hyclate 100 mg tablet 100 mg PO BID 08/05/18 [History Confirmed Last Taken Unknown] Allopurinol [Zyloprim] 100 mg PO DAILY 08/06/18 [History Confirmed 08/06/18 Last Taken Unknown] Ipratropium/Albuterol [Duoneb] 3 ml INHALATION Q8HP PRN 08/06/18 [History Confirmed 08/06/18 Last Taken Unknown] Metolazone [Zaroxolyn] 2.5 mg PO Q48@0900 08/06/18 [History Confirmed 08/06/18 Last Taken Unknown] predniSONE [Prednisone] 20 mg PO UD 08/06/18 [History Confirmed 08/06/18 Last Taken Unknown] Medical - DS: Hosp Hospital course: Mr. Ponce is a 53 year old M with history of congestive heart failure, last ejection fraction 15% in March 2018, pulmonary hypertension, COPD, chronic kidney disease. The patient was in the nephrology clinic where he presented for follow-up for shortness of breath. His chest x-ray was suggestive of congestive heart failure, the patient was advised to be admitted to the hospital for further management. According to the patient the patient was at his baseline status up until a few days ago, he then had a URI-viral syndrome, with subjective sensations of chills fever which was getting better. Last night he noticed that he was suddenly very short of breath, unable to move around much. The patient was seen in the emergency room last night, he was treated medically with IV steroids antibiotics nebulizers and Lasix. The patient was not admitted to the hospital as there was no bed available at this facility and according to the patient no bed available at [facility] The patient did not want to go to [facility]. The patient therefore was discharged home with follow-up with nephrology the patient when seen today this morning was still significantly short of breath and was therefore admitted to the hospital for further management. Patient still smokes 1-2 cigarettes a month, he notes he has been taking his medications as prescribed. Labs done in the ER show a normal WBC count at 7.7, hemoglobin 15, platelets 206 , lactic acid 1.7, sodium 141, potassium 3.7 bicarbonate 24 creatinine 3.5 glucose 162 troponin 0 0.04, BNP more than 70,000. Chest x-ray shows cardiomegaly and congestive heart failure COPD exacerbation- The patient was treated with antibiotics, steroid and duonebs , responded well to treatment, Will be discharged home on oral prednisone, and complete the course of antibiotics. 2 more doses of levofloxacin 250 q48hrs. Pt has duonebs and combivent at home, to continue using same. CHF exacerbation- Patient as very poor ejection fraction and cxr had interstitial edema. IV bumex given with po metolozine with good response. Neg 3125Ml at the time of discharge. Resume home diuretic regime. The patient has a single chamber pacemaker/AICD device based on my view of the X ray, On the head buyer tobacco note it says its a [employer] model D151. This patient has severe CHF, he has polycythemia due to copd, but more likely due to sleep apnea. His sleep study done shows he has central sleep apnea with chyene corral breathing. The patient has been scheduled for bipap/ASV mode ventilation on the as per the patient. In light of the severe CHF and EKG showing wide qrs complex, I believe this patient may benefit from a [employer]-D type of a pacemaker/ Defibrillator device to improve his cardiac function and may help with his central sleep apnea. I have reviewed this with him and advised him to discuss this with his head buyer tobacco. Abnormal LFT- Pt bilirubin jumped on the day of discharge to 1.9, repeat test was 1.8, pt otherwise has normal LFT, ast and alt did nto change much. He can have this followed as outpatient with his PCP. CKD- Creat more or less stable during the hospital stay, creat at the time of discharge was 3.4 which is near his baseline. The rest of the stay in the hospital is uneventful. No changes made to his chronic home mediation list. Given his extensive medical comorbidities, and very tenacious hemodynamics the patient remains high risk for readmissions. Discharge diagnosis: copd exacerbation, chf exacerbation. - Time Spent with Patient Total time spent providing and/or coordinating discharge services: Greater than 30 minutes Medical - DS: Exam - Constitutional Vitals: Vital Signs Temp Pulse Pulse Resp BP BP Pulse Ox 08/08/18 07:33 90 18 08/08/18 06:37 97.3 F 89 16 103/71 94 08/08/18 02:58 99 H 20 100/60 93 08/08/18 00:02 97.6 F 64 16 100/60 94 08/07/18 23:25 67 16 08/07/18 22:54 28 H 08/07/18 20:44 64 36 H 120/70 97 08/07/18 19:31 68 20 95 08/07/18 15:59 99.6 F H 22 105/79 96 08/07/18 15:07 64 18 08/07/18 12:39 69 18 118/86 97 08/07/18 11:48 66 18 Intake and Output 08/07/18 08/08/18 08/08/18 21:59 05:59 13:59 Intake Total 1200 / 1200 150 / 150 Output Total 2099 750 / 750 Balance -900 / -900 -600 / -600 Intake: Oral 1200 / 1200 150 / 150 Output: Urine Catheter Amount 2099 750 / 750 Other: Meal Lunch Percent of Meal Consumed 50% Feeding Ability Independent Urine Appearance Clear Uretheral (Castillo) Clear Urine Color Bright Yellow Bright Yellow Uretheral (Castillo) Bright Yellow Weight 205 lb Additional comments: Constitutional; Afebrile, cooperative, alert, not in distress. Respiratory system: Air Entry equal on both sides, No crackles or wheezing, no rhonchi. CVS- Rate rhythm regular, S1,S2 heard, no gallop, no rub. Abdomen- Soft nontender abdomen, no organomegaly, no tenderness, no guarding or rigidity, PLUMBING INSTRUCTOR- AOOx3, moving all extremities, no gross focal deficit noted. Medical - DS: Data Labs on day of discharge: Labs from last 24 hours 08/08/18 08/08/18 08/08/18 08:56 04:20 04:20 WBC 11.7 H RBC 5.24 Hgb 17.1 H Hct 51.9 MCV 99.1 MCH 32.6 MCHC 32.9 RDW 15.7 H Plt Count 177 MPV 10.2 Gran % 90.9 H Lymph % (Auto) 4.0 L [place] % (Auto) 5.1 Eos % (Auto) 0 Baso % (Auto) 0 Gran # 10.7 H Lymph # (Auto) 0.5 L [place] # (Auto) 0.6 Eos # (Auto) 0 Baso # (Auto) 0 Haptoglobin Pending Sodium 135 Potassium 4.3 Chloride 90 L Carbon Dioxide 30 Anion Gap 15.0 BUN 68 H Creatinine 3.4 H GFR Calculation 19 Glucose 175 H Uric Acid 14.0 H Calcium 9.4 Phosphorus 3.4 Magnesium 1.9 Total Bilirubin 1.8 H 1.9 H Direct Bilirubin 0.5 H 0.6 H GGT 87 H AST 20 17 ALT 13 12 Alkaline Phosphatase 86 89 Lactate Dehydrogenase 310 H Total Protein 7.3 7.1 Albumin 3.5 3.4 Globulin 3.8 H 3.7 Albumin/Globulin Ratio 0.9 L Triglycerides 77 Medical - DS: A/P - Patient/Caregiver Discharge Instructions Activity: increase activity as tolerated Diet: Low Sodium (2gm), Cardiac, Renal Additional Instructions: Take prednisone 40mg daily for another 3 days Take Your nebulizer /combivent inhalers 3-4 times a day Please take levofloxacin 250mg (antibiotic ) for another 2 doses. Every other day. Go to the ER if chest pain, shortness of breath, fever or any other acute symptoms. Please follow-up with your primary care physician in 1 week time. Make sure that your primary care physician checks of blood work and make sure that your hemoglobin and your liver function test are normal. Please follow-up with your head buyer tobacco in 1-2 weeks, discussed with him the if there is a need for change in the pacemaker defibrillator device. Make sure you keep your appointment with the sleep study lab. I have not made any changes in your chronic home medication regime please make sure you take them on a regular basis as prescribed by her previous providers - Follow up Plan Disposition: Home, Self-Care Prognosis: Fair Rehab Potential: Fair I certify that the patient requires SNF services: No Overall status at discharge: patient is progressing back to baseline Medical - DS: Qual - VTE Deep Vein Thrombosis/Pulmonary Embolism Present on Admission: No
== END 2018-08-08 13:38 | disposition home or self-care (01) | DRG 190 ==
LOC: ICU 15:47 → MEDSUR 08-07 17:05
PROVIDERS: ADMIT Internal Medicine; ATTEND Internal Medicine
CPT/HCPCS: 97161